=== PATIENT | male | born 1975 | race Caucasian/White ===

== ENCOUNTER 2020-08-04 07:58 | Outpatient (REF) | payer OTHER, SELFPAY | END 2020-08-04 07:59 | disposition home or self-care (01) | LOC: HO.LAB 07:58 | PROVIDERS: Visit Provider Internal Medicine | DX: Z20.828 Contact with and (suspected) exposure to other viral communicable diseases (principal) | CPT/HCPCS: 87635 ==

== ENCOUNTER 2020-09-01 07:55 | Outpatient (REF) | payer OTHER, SELFPAY ==
[2020-09-01 09:16] LABS: MANUAL DIFF FLAG NO
[2020-09-01 09:34] LABS: Basophils Absolute Auto 0.1 X10*3/uL (0.0-0.2); Basophils Percent Auto 0.6 % (0-2); Eosinophils Absolute Auto 0.3 X10*3/uL (0.0-0.4); Eosinophils Percent Auto 3.3 % (0-4); Hematocrit 48.6 % (42-52); Hemoglobin 15.9 g/dl (14.0-18.0); Imm Gran Abs Auto 0.07 X10*3/uL (0.00-0.03); Imm Gran Pct Auto 0.7 % (0.0-0.4); Lymphocytes Absolute Auto 2.4 X10*3/uL (1.2-4.9); Lymphocytes Percent Auto 24.9 % (20-40); Mean Corpuscular HGB Conc 32.7 g/dl (31.0-36.0); Mean Corpuscular Hemoglobin 30.6 pg (27.0-33.0); Mean Corpuscular Volume 93.6 fL (80-98); Mean Platelet Volume 9.2 fL (9.4-12.4); Monocytes Absolute Auto 0.8 X10*3/uL (0.1-1.2); Monocytes Percent Auto 8.1 % (2-11); Neutrophils Absolute Auto 5.9 X10*3/uL (2.0-8.3); Neutrophils Percent Auto 62.4 % (45-73); Platelet Count 245 X10*3/uL (160-400); Red Blood Count 5.19 X10*6/uL (4.60-5.80); Red Cell Distribution Width 12.3 % (11.0-16.0); White Blood Count 9.4 X10*3/uL (4.8-10.8)
[2020-09-01 09:43] LABS: Alanine Aminotransferase 46 U/L (0-40); Albumin Level 4.5 g/dL (3.5-5.0); Alkaline Phosphatase 64 U/L (39-117); Anion Gap 12 (12-20); Aspartate Amino Transferase 26 U/L (5-37); Bilirubin Total 0.4 mg/dL (0.0-1.0); Blood Urea Nitrogen 15 mg/dL (9-16); Calcium 9.1 mg/dL (8.4-10.2); Carbon Dioxide 30 mmol/L (22-29); Chloride 102 mmol/L (96-108); Cholesterol 220 mg/dL; Estimated Glomerular Filt Rate > 60; Glucose Fasting 96 mg/dL (60-99); HDL Cholesterol 33 mg/dL; LDL Cholesterol Calculated 155 mg/dl; Potassium 4.7 mmol/l (3.3-5.1); Sodium 139 mmol/L (135-145); Total Protein 7.1 g/dL (6.5-8.0); Triglycerides 162 mg/dL
[2020-09-01 09:52] LABS: TSH reflex Free T4 0.79 mIU/mL (0.32-4.0)
== END 2020-09-01 07:56 | disposition home or self-care (01) ==
LOC: HO.LAB 07:55
PROVIDERS: PCP Internal Medicine; Visit Provider Physician Assistant
DX: E78.2 Mixed hyperlipidemia (principal)
CPT/HCPCS: 36415; 80053; 80061; 84443; 85025

== ENCOUNTER 2020-09-21 12:18 | Outpatient (REF) | payer OTHER, SELFPAY | END 2020-09-21 12:19 | disposition home or self-care (01) | LOC: HO.LAB 12:18 | PROVIDERS: Visit Provider Internal Medicine | DX: Z20.828 Contact with and (suspected) exposure to other viral communicable diseases (principal) | CPT/HCPCS: C9803; U0003 ==

== ENCOUNTER → 2020-10-26 08:29 | Outpatient (BNVA) | payer OTHER, SELFPAY | PROVIDERS: PCP Internal Medicine; Referring Provider Internal Medicine; Visit Provider Psychiatry & Neurology Neurology ==

== ENCOUNTER → 2020-12-14 08:29 | Outpatient (BNVA) | payer OTHER, SELFPAY | PROVIDERS: PCP Internal Medicine; Visit Provider Psychiatry & Neurology Neurology ==

== ENCOUNTER 2020-12-30 07:44 | Outpatient (REF) | payer OTHER, SELFPAY ==
[2020-12-30 08:41] LABS: Hematocrit 44.2 % (42-52); Mean Corpuscular HGB Conc 33.9 g/dl (31.0-36.0); Mean Corpuscular Volume 91.3 fL (80-98); Mean Platelet Volume 8.6 fL (9.4-12.4); Platelet Count 228 X10*3/uL (160-400); Red Blood Count 4.84 X10*6/uL (4.60-5.80); Red Cell Distribution Width 12.5 % (11.0-16.0); White Blood Count 8.7 X10*3/uL (4.8-10.8)
[2020-12-30 09:20] LABS: Alanine Aminotransferase 44 U/L (0-40); Albumin Level 4.4 g/dL (3.5-5.0); Alkaline Phosphatase 69 U/L (39-117); Anion Gap 15 (12-20); Aspartate Amino Transferase 23 U/L (5-37); Bilirubin Direct 0.2 mg/dL (0.0-0.5); Bilirubin Total 0.4 mg/dL (0.0-1.0); Blood Urea Nitrogen 16 mg/dL (9-16); Calcium 8.9 mg/dL (8.4-10.2); Carbon Dioxide 28 mmol/L (22-29); Chloride 103 mmol/L (96-108); Cholesterol 221 mg/dL; Estimated Glomerular Filt Rate > 60; Glucose Random 108 mg/dL (60-115); HDL Cholesterol 36 mg/dL; LDL Cholesterol Calculated 148 mg/dl; Potassium 4.6 mmol/L (3.3-5.1); Sodium 141 mmol/L (135-145); Total Protein 7.2 g/dL (6.5-8.0); Triglycerides 189 mg/dL
[2020-12-30 09:41] LABS: Thyroid Stimulating Hormone 1.14 uIU/mL (0.32-4.0)
[2020-12-30 10:44] LABS: Folate 14.8 ng/mL (> or = 4.0); Vitamin B12 < 146 pg/mL (200-900)
[2021-01-05 11:32] LABS: Vitamin D 25-OH, D2 <4 ng/mL; Vitamin D 25-OH, D3 15 ng/mL; Vitamin D 25-OH, Total 15 ng/mL (30-100)
== END 2020-12-30 07:45 | disposition home or self-care (01) ==
LOC: HO.LAB 07:44
PROVIDERS: PCP Internal Medicine; Visit Provider Internal Medicine
DX: E78.2 Mixed hyperlipidemia (principal)
CPT/HCPCS: 36415; 80048; 80061; 80076; 82306; 82607; 82746; 84443; 85027

== ENCOUNTER → 2021-02-08 09:13 | Outpatient (BNVA) | payer OTHER, SELFPAY | PROVIDERS: PCP Internal Medicine; Visit Provider Psychiatry & Neurology Neurology ==

== ENCOUNTER → 2021-06-14 15:21 | Outpatient (BNVA) | payer OTHER, SELFPAY | PROVIDERS: Visit Provider Urology ==

== ENCOUNTER → 2021-07-26 09:27 | Outpatient (REF) | payer OTHER, SELFPAY | LOC: HO.SL 09:27 | PROVIDERS: PCP Internal Medicine; Visit Provider Psychiatry & Neurology Neurology | DX: G47.33 Obstructive sleep apnea (adult) (pediatric) (principal) | CPT/HCPCS: 99211 ==

== ENCOUNTER → 2021-09-21 11:29 | Outpatient (BNVA) | payer OTHER, SELFPAY | PROVIDERS: PCP Internal Medicine; Visit Provider Urology | DX: Z30.2 Encounter for sterilization (principal); F41.8 Other specified anxiety disorders | CPT/HCPCS: 55250 ==

== ENCOUNTER 2021-10-11 08:32 | Outpatient (REF) | payer OTHER, SELFPAY ==
[2021-10-11 08:59] LABS: Hematocrit 46.9 % (42.0-52.0); Hemoglobin 15.7 g/dl (14.0-18.0); Mean Corpuscular HGB Conc 33.5 g/dl (31.0-36.0); Mean Corpuscular Hemoglobin 30.7 pg (27.0-33.0); Mean Corpuscular Volume 91.6 fL (80.0-98.0); Mean Platelet Volume 8.6 fL (9.4-12.4); Platelet Count 209 X10*3/uL (160-400); Red Blood Count 5.12 X10*6/uL (4.60-5.80); Red Cell Distribution Width 12.5 % (11.0-16.0); White Blood Count 7.8 X10*3/uL (4.8-10.8)
[2021-10-11 09:34] LABS: Appearance Urine CLEAR; Color Urine YELLOW; Glucose Urine UA NEG (NEG); Leukocyte Esterase Urine NEG (NEG); Nitrite Urine NEG (NEG); Specific Gravity - Urine 1.025 (1.005-1.025); Urine Blood TRACE (NEG); Urine Ketones NEG (NEG); Urine Protein NEG (NEG-TRACE)
[2021-10-11 09:42] LABS: RBC Urine 0-2 /HPF (0); Squamous Epithelial Cell Urine TRACE /LPF; WBC Urine 0 /HPF (0-4)
[2021-10-11 09:45] LABS: Alanine Aminotransferase 105 U/L (0-40); Albumin Level 4.5 g/dL (3.5-5.0); Alkaline Phosphatase 83 U/L (39-117); Anion Gap 10 (12-20); Aspartate Amino Transferase 53 U/L (5-37); Bilirubin Direct 0.2 mg/dL (0.0-0.5); Bilirubin Total 0.5 mg/dL (0.0-1.0); Blood Urea Nitrogen 14 mg/dL (9-16); Calcium 9.7 mg/dL (8.4-10.2); Carbon Dioxide 30 mmol/L (22-29); Chloride 105 mmol/L (96-108); Cholesterol 211 mg/dL; Estimated Glomerular Filt Rate > 60; Glucose Random 113 mg/dL (60-115); HDL Cholesterol 32 mg/dL; LDL Cholesterol Calculated 144 mg/dl; Potassium 4.7 mmol/L (3.3-5.1); Sodium 140 mmol/L (135-145); Total Protein 7.3 g/dL (6.5-8.0); Triglycerides 177 mg/dL
[2021-10-11 09:58] LABS: Thyroid Stimulating Hormone 1.04 uIU/mL (0.32-4.0)
[2021-10-11 10:31] LABS: Folate 19.4 ng/mL (> or = 4.0); Vitamin B12 375 pg/mL (200-900)
[2021-10-15 12:46] LABS: Vitamin D 25-OH, D2 <4 ng/mL; Vitamin D 25-OH, D3 16 ng/mL; Vitamin D 25-OH, Total 16 ng/mL (30-100)
== END 2021-10-11 08:33 | disposition home or self-care (01) ==
LOC: HO.LAB 08:32
PROVIDERS: PCP Internal Medicine; Visit Provider Internal Medicine
DX: D51.8 Other vitamin B12 deficiency anemias (principal); E78.00 Pure hypercholesterolemia, unspecified
CPT/HCPCS: 36415; 80048; 80061; 80076; 81001; 82306; 82607; 82746; 84443; 85027

== ENCOUNTER 2021-11-03 08:55 | Outpatient (REF) | payer OTHER, SELFPAY ==
--- NOTE | ~2021-11-03 | US_ITS ---
EXAMINATION: US ABDOMEN COMPLETE CLINICAL INFORMATION: Elevated liver enzymes. COMPARISON: None TECHNIQUE: Real-time imaging of the abdominal viscera. FINDINGS: PANCREAS: Not well visualized due to bowel gas. ABDOMINAL AORTA: The proximal, mid, and distal segments are normal in caliber. INFERIOR VENA CAVA: Visualized portions are normal. LIVER: The liver is normal in size. The liver contour is normal. Echotexture is increased probably representing fatty infiltration. There is a hypoechoic area adjacent to the gallbladder, a characteristic location of focal fatty sparing. No other focal hepatic lesion. There is no intrahepatic biliary duct dilatation seen. GALLBLADDER: Normal. The gallbladder is physiologically distended without evidence of stones, sludge, polyps, wall thickening or pericholecystic fluid. COMMON BILE DUCT: Normal in caliber measuring 0.5 cm in diameter. RIGHT KIDNEY: Normal. No hydronephrosis. No renal calculi or focal parenchymal lesions. The kidney measures 12.2 cm in maximum dimension. LEFT KIDNEY: Normal. No hydronephrosis. No renal calculi or focal parenchymal lesions. The kidney measures 11.7 cm in maximum dimension. SPLEEN: Normal. The spleen measures 10.0 cm in maximum dimension. FREE FLUID: None. US/US abdomen complete IMPRESSION: Echogenic liver probably representing fatty infiltration. Nonvisualization of the pancreas.
== END 2021-11-03 08:56 | disposition home or self-care (01) ==
LOC: HO.HMGCX 08:55
PROVIDERS: Visit Provider Internal Medicine
DX: R74.8 Abnormal levels of other serum enzymes (principal)
CPT/HCPCS: 76700

== ENCOUNTER 2023-04-26 14:29 | Outpatient (AMB) | payer OTHER, SELFPAY ==
--- NOTE | 2023-04-26 14:34 | MHC.PC.OV ---
Vital Signs 04/26/23 14:36 Height 5 ft 4 in Weight 195 lb 6 oz BMI 33.5 BP 150/90 H Blood Pressure Location Lt brachial Position Sitting Pulse 80 Pulse Source Pulse Oximeter Pulse Oximetry (%) 97 Oxygen Delivery Method Room Air Intake Visit Reasons: Annual exam Intake Note: Patient is here today for a physical. 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 He stopped taking cholesterol medications a year ago. [facility] Medical History (Updated 04/26/23 @ 15:15 by Cecilio Lewis MD) Hypercholesterolemia NOEMÍ (obstructive sleep apnea) Vitamin B12 deficiency (dietary) anemia Surgical History History of vasectomy Family History Father Heart disease Stroke Mother Heart disease Diabetes Social History Housing: House (rented) Alcohol intake: current Alcohol intake frequency: holidays/special occasions only Patient Tobacco Use Status: Former Tobacco user (11/08/20) Quit Date: 11/08/20 Cigarettes Per Day: 8 e-Cigarette/Vaping Use: Never Used Second Hand Smoke Exposure: No service: No Current occupational status: employed and other Cognitive needs: No Hearing needs: No Vision needs: No Questionnaire PHQ-9 Over the last 2 weeks, how often have you been bothered by any of the following problems? 1. Little interest or pleasure in doing things: not at all 2. Feeling down, depressed, or hopeless: not at all 3. Trouble falling or staying asleep, or sleeping too much: not at all 4. Feeling tired or having little energy: not at all 5. Poor appetite or overeating: not at all 6. Feeling bad about yourself - or that you are a failure or have let yourself or your family down: not at all 7. Trouble concentrating on things, such as reading the newspaper or watching television: not at all 8. Moving or speaking so slowly that other people could have noticed. Or the opposite - being so fidgety or restless that you have been moving around a lot more than usual: not at all 9. Thoughts that you would be better off or of hurting yourself in some way: not at all Total score: 0 Depression Screening Interpretation: Negative Source: Developed by Drs. Sincere Leo, Sole Nino, Maury Ravi and colleagues, with an educational mackenzie from [employer]. Thrive Questionnaire Date Thrive assessed: 10/13/21 I am a: Patient What is your living situation today?: I have a steady place to live Within the past 12 months, did the food you bought not last and you didn't have the money to get more?: Never true Within the past 12 months, did you worry whether your food would run out before you got money to buy more?: Never true Do you have trouble paying for medicines?: No Do you have trouble getting transportation to medical appointments?: No Do you have trouble paying your heating and electricity bill?: No Do you have trouble taking care of your child, family member or friend?: No Do you have trouble with day-to-day activities such as bathing, preparing meals, shopping, managing finances, etc.?: No Are you currently unemployed and looking for a job?: No Are you interested in more education?: No Currently or been in a relationship where the following occur: no concerns reported AUDIT C Alcohol Use Questionnaire (AUDIT-C) 1. How often do you have a drink containing alcohol?: Monthly or less 2. How many drinks containing alcohol do you have on a typical day when you are drinking?: 1 or 2 3. How often do you have six or more drinks on one occasion?: Never Total Score: 1 MAY-7 AMB Questionnaire MAY-7 Date MAY - 7 assessed: 04/26/23 Feeling nervous, anxious, or on edge: 0 = Not at all Not being able to stop or control worryin = Not at all Worrying too much about different things: 0 = Not at all Trouble relaxin = Not at all Being so restless that it is hard to sit still: 0 = Not at all Becoming easily annoyed or irritable: 0 = Not at all Feeling afraid as if something awful might happen: 0 = Not at all Total MAY-7 score (0-4 normal; 5-9 mild; 10-14 moderate; 15-21 severe): 0 Source: Developed by Drs. Sincere Leo, Sole Nino, Maury Ravi and colleagues, with an educational mackenzie from [employer]. Physical exam (Primary Care) Vital Signs: Last Vital Signs Pulse 80 04/26/23 14:36 BP 150/90 H 04/26/23 14:36 Pulse Ox 97 04/26/23 14:36 Oxygen Delivery Method Room Air 04/26/23 14:36 Care Plan Goal for BP management: Blood pressure is elevated. Patient is going to check a few more readings. BMI result Body Mass Index 33.5 Tobacco/Smoking Status: Tobacco use Status Tobacco use date assessed 04/26/23 04/26/23 14:44 Patient Tobacco Use Status Former Tobacco user (11/08/20) 04/26/23 14:44 e-Cigarette/Vaping Use Never Used 04/26/23 14:44 PHQ-9: PHQ-9 Score PHQ-9: Total score 0 04/26/23 14:44 Depression Screening Interpretation: Negative Thrive Assessment: Date of Thrive Assessment Date Thrive assessed 10/13/21 04/26/23 14:44 Currently or been in a relationship where the following occur: no concerns reported Const General: cooperative, healthy appearing and comfortable HENMT Head: Yes normal to inspection and Yes atraumatic Eyes General: appearance normal, both eyes and all related structures Neck Neck: Yes normal visual inspection and Yes full ROM Chest Chest palpation & inspection: normal inspection of the chest Resp Effort & Inspection: normal respiratory effort Auscultation: clear to auscultation bilaterally Cardio Jugular venous distension: no JVD Palpation: normal PMI Rate: regular rate Heart sounds: S1 normal heart sound present and S2 normal heart sound present GI Palpation (GI): Soft to palpation and No hepatosplenomegaly present Extrem General: Yes normal to inspection and Yes full ROM Assessment and Plan Assessment & Plan (1) NOEMÍ (obstructive sleep apnea): Code(s): G47.33 - Obstructive sleep apnea (adult) (pediatric) Plan: Continue the CPAP. (2) Annual physical exam: Code(s): Z00.00 - Encounter for general adult medical examination without abnormal findings Plan: Screening colonoscopy and blood work ordered. Medications: Refilled cyanocobalamin (vitamin B-12) 1,000 mcg IM Q4W 3 mL 1RF D51.8 - Other vitamin B12 deficiency anemias Coding Level of Care Code Est Pt Prev Care 40-64y(36921) Diagnoses NOEMÍ (obstructive sleep apnea) G47.33 Annual physical exam Z00.00
[2023-04-26 14:36] VITALS: BP 150/90; PULSE 80; O2SAT 97; BMI 33.5
== END 2023-04-26 15:02 | disposition home or self-care (01) ==
PROVIDERS: PCP Internal Medicine; Visit Provider Internal Medicine
DX: G47.33 Obstructive sleep apnea (adult) (pediatric) (principal); Z00.00 Encounter for general adult medical examination without abnormal findings
CPT/HCPCS: 99396

== ENCOUNTER 2023-05-10 10:51 | Outpatient (AMB) | payer OTHER, SELFPAY ==
[2023-05-10 11:00] VITALS: BP 141/77; PULSE 80; BMI 34.1
--- NOTE | 2023-05-10 11:00 | MHC.OFFVIS ---
Intake Vital Signs 05/10/23 11:00 Height 5 ft 4 in Weight 198 lb 13.711 oz BMI 34.1 BP 141/77 H Blood Pressure Location Rt brachial Position Sitting Pulse 80 Intake Visit Reasons: Colonoscopy screening Intake Note: Patient presents to in office visit today as a new patient for colonoscopy screening. CC: Patient reports GERD and heartburn. Denies other GI symptoms today. 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 He is referred by Cecilio Lewis of [facility] primary care. PMX NOEMÍ Smoker - quit 1 year ago Obesity High cholesterol Abnormal liver function tests Vitamin B12 deficiency Anxiety * SURGICAL HISTORY Vasectomy * ALLERGIES Atorvastatin * [employer] LABS: none since 2021 TODAY'S VISIT This is his first colonoscopy. HE has occasional GERD that he treats with TUMS and no bowel problems. 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 He has obstructive sleep apnea and denies any cardiac problems. NO ID problems No known FHX of crc or polyps. [facility] Medical History Hypercholesterolemia NOEMÍ (obstructive sleep apnea) Vitamin B12 deficiency (dietary) anemia Surgical History History of vasectomy Family History Father Heart disease Stroke Mother Heart disease Diabetes Social History Housing: House (rented) Alcohol intake: current Alcohol intake frequency: holidays/special occasions only Patient Tobacco Use Status: Former Tobacco user (11/08/20) Quit Date: 11/08/20 Cigarettes Per Day: 8 e-Cigarette/Vaping Use: Never Used Second Hand Smoke Exposure: No service: No Current occupational status: employed and other Cognitive needs: No Hearing needs: No Vision needs: No Review of Systems Const Denies fatigue, Denies fever(s), Denies night sweats, Denies poor appetite and Denies weight loss ENT Reports Normal hearing present, Denies dental pain, Denies dysphagia, Denies hearing loss, Denies mouth pain, Denies odynophagia, Denies throat swelling, Denies tongue swelling and Reports other (Dentition adequate) Card Reports no additional complaints Resp Reports no additional complaints GI Denies abdominal pain, Denies melena, Denies bloating, Denies hematochezia, Denies constipation, Denies GI cramping, Denies dysphagia, Denies excessive flatus, Denies early satiety, Denies heartburn, Denies diarrhea, Denies nausea, Denies odynophagia, Denies vomiting and Denies hematemesis Skin/Breast Denies pruritus, Denies lesions, Denies rash and Denies jaundice Neuro Reports Normal hearing present and Denies Abnormal speech present Endo Denies fatigue Aller/Immun Denies throat swelling and Denies tongue swelling Physical Exam Vital Signs: Last Vital Signs Pulse 80 05/10/23 11:00 BP 141/77 H 05/10/23 11:00 BMI result Body Mass Index 34.1 Const General: cooperative, no acute distress, well developed and well groomed Nutritional Appearance: well nourished and obese centrally obese Orientation/consciousness: oriented to person, oriented to place and oriented to time Limitations: No language barrier HEENT Head: Yes normocephalic and Yes atraumatic Eyes General: appearance normal, both eyes and all related structures Pupils: Equal, round and reactive pupils present Neck Neck: Yes normal visual inspection and Yes no lymphadenopathy Thyroid: Thyroid normal Resp Effort & Inspection: normal respiratory effort and able to speak in complete sentences Auscultation: clear to auscultation bilaterally Cardio Rate: regular rate Rhythm: regular rhythm Heart sounds: Normal, physiologic split S2 sound present Peripheral pulses: radial pulses present and posterior tibial pulses present GI Inspection: No distended, No Abdominal panniculus present and Yes obesity Palpation (GI): Soft to palpation, nontender, no guarding, not rigid and No hepatosplenomegaly present Percussion: Yes normal to percussion Auscultation: normal bowel sounds Rectal Exam - Male: Yes deferred Skin General skin exam: no rashes or lesions noted, turgor normal, skin not dry, no jaundice, No spider nevi and no striae Rashes: no rashes Nails: normal Neuro General: oriented to person, oriented to place and oriented to time Cranial nerves: Yes Equal, round and reactive pupils present and Yes Normal hearing present Speech: No Abnormal speech present Extrem General: Yes normal to inspection, No clubbing, No cyanosis and No edema Psych Appearance: grossly normal and well kempt Mental Status: mental status grossly normal Speech and movement: Normal speech and movement present Affect: normal affect Attitude: cooperative Thought process: Normal thought process present and not confabulating Thought content: Normal thought content present Insight: Fair insight present (Psych) Judgement: Fair judgement present (Psych) Assessment & Plan Assessment & Plan (1) Pre-op examination: Code(s): Z01.818 - Encounter for other preprocedural examination Plan: This is his first colonoscopy. HE has occasional GERD that he treats with TUMS and no bowel problems. 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 He has obstructive sleep apnea and denies any cardiac problems. NO ID problems No known FHX of crc or polyps. (2) NOEMÍ (obstructive sleep apnea): Code(s): G47.33 - Obstructive sleep apnea (adult) (pediatric) Orders: Orders Comprehensive Met. Panel Today Z01.818 - Encounter for other preprocedural examination Complete Blood Count Auto Diff Today Z01.818 - Encounter for other preprocedural examination Colonoscopy - GI Use Only Today Z01.818 - Encounter for other preprocedural examination Medications: New peg 3350-electrolytes 236-22.74-6.74 -5.86 gram (Golytely) until fecal effluent is clear; do not exceed a total volume of 2,000 mL 240 mL PO Q10M 1 day 4,000 mL 0RF Z12.11 - Encounter for screening for malignant neoplasm of colon Coding Level of Care Code New Pt Level 3 (68889) Diagnoses Pre-op examination Z01.81 NOEMÍ (obstructive sleep apnea) G47.33
== END 2023-05-10 12:11 | disposition home or self-care (01) ==
PROVIDERS: PCP Internal Medicine; Visit Provider Nurse Practitioner
DX: Z01.818 Encounter for other preprocedural examination (principal); Z12.11 Encounter for screening for malignant neoplasm of colon; G47.33 Obstructive sleep apnea (adult) (pediatric)
CPT/HCPCS: 99203

== ENCOUNTER → 2023-05-10 10:51 | Outpatient (BNVA) | payer OTHER, SELFPAY | PROVIDERS: PCP Internal Medicine; Visit Provider Nurse Practitioner ==

== ENCOUNTER 2023-05-25 10:28 | Outpatient (REF) | payer OTHER, SELFPAY ==
[2023-05-25 10:53] LABS: Hematocrit 47.2 % (42.0-52.0); Hemoglobin 15.9 g/dl (14.0-18.0); Mean Corpuscular HGB Conc 33.7 g/dl (31.0-36.0); Mean Corpuscular Hemoglobin 31.5 pg (27.0-33.0); Mean Corpuscular Volume 93.5 fL (80.0-98.0); Mean Platelet Volume 8.8 fL (9.4-12.4); Platelet Count 199 X10*3/uL (160-400); Red Blood Count 5.05 X10*6/uL (4.60-5.80); Red Cell Distribution Width 12.3 % (11.0-16.0); White Blood Count 7.9 X10*3/uL (4.8-10.8)
[2023-05-25 10:54] LABS: Appearance Urine Clear; Color Urine Yellow; Glucose Urine UA Negative (Negative); Leukocyte Esterase Urine Negative (Negative); Nitrite Urine Negative (Negative); PH 5.5 (5.0-9.0); Urine Blood Negative (Negative); Urine Ketones Negative (Negative); Urine Protein Negative (Neg-Trace)
[2023-05-25 12:22] LABS: Alanine Aminotransferase 151 U/L (0-40); Albumin Level 4.6 g/dL (3.5-5.0); Alkaline Phosphatase 68 U/L (39-117); Anion Gap 14 (12-20); Aspartate Amino Transferase 69 U/L (5-37); Bilirubin Direct 0.2 mg/dL (0.0-0.5); Bilirubin Total 0.5 mg/dL (0.0-1.0); Blood Urea Nitrogen 14 mg/dL (9-16); Calcium 10.1 mg/dL (8.4-10.2); Carbon Dioxide 29 mmol/L (22-29); Chloride 101 mmol/L (96-108); Cholesterol 265 mg/dL; Estimated Glomerular Filt Rate > 60; Glucose Random 100 mg/dL (60-115); HDL Cholesterol 40 mg/dL; LDL Cholesterol Calculated 182 mg/dl; Potassium 4.4 mmol/L (3.3-5.1); Sodium 140 mmol/L (135-145); Total Protein 7.8 g/dL (6.5-8.0); Triglycerides 218 mg/dL
[2023-05-25 12:38] LABS: Thyroid Stimulating Hormone 0.87 uIU/mL (0.32-4.0)
== END 2023-05-25 10:29 | disposition home or self-care (01) ==
LOC: HO.LAB 10:28
PROVIDERS: PCP Internal Medicine; Visit Provider Internal Medicine
DX: E78.00 Pure hypercholesterolemia, unspecified (principal)
CPT/HCPCS: 36415; 80048; 80061; 80076; 81003; 84443; 85027

== ENCOUNTER 2023-05-31 13:43 | Outpatient (AMB) | payer OTHER, SELFPAY ==
--- NOTE | 2023-05-31 13:55 | A.OFFPC_ITS ---
Vital Signs 05/31/23 13:57 Height 5 ft 4 in Weight 201 lb 4 oz BMI 34.5 BP 132/70 Blood Pressure Location Lt brachial Position Sitting Pulse 91 Pulse Source Pulse Oximeter Pulse Oximetry (%) 97 Oxygen Delivery Method Room Air Intake Visit Reasons: 4 week f/u Intake Note: Patient is here to follow up on HLD, NOEMÍ. 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 Patient had recent blood work and would like to discuss it. He has gained 15 lb since last office visit. Patient continues to work and do all activities of daily living. PENDING SALE TO [facility] Medical History Hypercholesterolemia NOEMÍ (obstructive sleep apnea) Vitamin B12 deficiency (dietary) anemia Surgical History History of vasectomy Family History Father Heart disease Stroke Mother Heart disease Diabetes Social History Housing: House (rented) Alcohol intake: current Alcohol intake frequency: holidays/special occasions only Patient Tobacco Use Status: Former Tobacco user (11/08/20) Quit Date: 11/08/20 Cigarettes Per Day: 8 e-Cigarette/Vaping Use: Never Used Second Hand Smoke Exposure: No service: No Current occupational status: employed and other Cognitive needs: No Hearing needs: No Vision needs: No Questionnaire Thrive Questionnaire Date Thrive assessed: 10/13/21 MAY-7 AMB Questionnaire MAY-7 Date MAY - 7 assessed: 04/26/23 Source: Developed by Drs. Sincere Leo, Sole Nino, Maury Ravi and colleagues, with an educational mackenzie from [employer]. Physical exam (Primary Care) Vital Signs: Last Vital Signs Pulse 91 05/31/23 13:57 BP 132/70 05/31/23 13:57 Pulse Ox 97 05/31/23 13:57 Oxygen Delivery Method Room Air 05/31/23 13:57 BMI result Body Mass Index 34.5 Tobacco/Smoking Status: Tobacco use Status Tobacco use date assessed 05/31/23 05/31/23 13:58 Patient Tobacco Use Status Former Tobacco user (11/08/20) 05/31/23 13:56 e-Cigarette/Vaping Use Never Used 05/31/23 13:56 Thrive Assessment: Date of Thrive Assessment Date Thrive assessed 10/13/21 05/31/23 13:56 Const General: cooperative, healthy appearing and comfortable HENMT Head: Yes normal to inspection and Yes atraumatic Eyes General: appearance normal, both eyes and all related structures Neck Neck: Yes normal visual inspection and Yes full ROM Chest Chest palpation & inspection: normal inspection of the chest Resp Effort & Inspection: normal respiratory effort Auscultation: clear to auscultation bilaterally Cardio Jugular venous distension: no JVD Palpation: normal PMI Rate: regular rate Heart sounds: S1 normal heart sound present and S2 normal heart sound present GI Palpation (GI): Soft to palpation and No hepatosplenomegaly present Extrem General: Yes normal to inspection and Yes full ROM Assessment and Plan Assessment & Plan (1) HLD (hyperlipidemia): Code(s): E78.5 - Hyperlipidemia, unspecified Qualifiers: Hyperlipidemia type: mixed hyperlipidemia Qualified Code(s): E78.2 - Mixed hyperlipidemia Plan: I proposed to restart the statins. Patient stated that in the past he had to stop statins because of pain in the legs. Her I encouraged him to tried 1 more time as they are the most effective medications to lower LDL levels. Patient is agreed. (2) Abnormal liver enzymes: Code(s): R74.8 - Abnormal levels of other serum enzymes Plan: Liver enzymes are elevated. Ultrasound done last year of the liver was consistent with fatty liver disease. Patient was encouraged to lose weight. Coding Level of Care Code Est Pt Level 4 (48323) Diagnoses HLD (hyperlipidemia) E78.2 Hyperlipidemia type: mixed hyperlipidemia Abnormal liver enzymes R74.8
[2023-05-31 13:57] VITALS: BP 132/70; PULSE 91; O2SAT 97; BMI 34.5
== END 2023-05-31 14:39 | disposition home or self-care (01) ==
PROVIDERS: PCP Internal Medicine; Visit Provider Internal Medicine
DX: E78.2 Mixed hyperlipidemia (principal); R74.8 Abnormal levels of other serum enzymes
CPT/HCPCS: 99214

== ENCOUNTER 2023-09-06 13:39 | Outpatient (AMB) | payer OTHER, SELFPAY ==
--- NOTE | 2023-09-06 13:51 | A.OFFPC_ITS ---
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 Accompanied by: Self / Same As Patient Allergies atorvastatin Adverse Reaction (Intermediate, Verified 09/06/23 14:20) cramps Medication List - Last Reconciled 09/06/23 by Cecilio Lewis MD albuterol sulfate 90 mcg/actuation 1 puff inhalation DAILY PRN 30 days peg 3350-electrolytes 236-22.74-6.74 -5.86 gram (Golytely) 240 mL PO Q10M 1 day rosuvastatin 10 mg PO DAILY Tobacco use date assessed: 05/31/23 Dental Screening Dental Screen Date: 09/06/23 Did you have a dental visit in the last 12 months?: No Did you have a dental problem in the last 6 months where you did not have access to dental care?: No Was dental information given to patient?: Patient has dentist HPI 3mth f/u HPI Details 48-year-old male presents to the office to discuss his chronic medical conditions. Patient is compliant with medications and is requesting a refill on Prilosec. He is awaiting a colonoscopy there has been scheduled in the week of November. Able to function and do activities of daily living. Patient is reporting that he is become increasingly irritable. He used to be on anxiety medications 15 years ago. He feels so symptoms are returning. Sleeping well at night. Good interpersonal relationship. Appetite is normal. [facility] Medical History Hypercholesterolemia NOEMÍ (obstructive sleep apnea) Vitamin B12 deficiency (dietary) anemia Surgical History History of vasectomy Family History Father Heart disease Stroke Mother Heart disease Diabetes Social History Housing: House (rented) Alcohol intake: current Alcohol intake frequency: holidays/special occasions only Patient Tobacco Use Status: Former Tobacco user (11/08/20) Quit Date: 11/08/20 Cigarettes Per Day: 8 e-Cigarette/Vaping Use: Never Used Second Hand Smoke Exposure: No service: No Current occupational status: employed and other Cognitive needs: No Hearing needs: No Vision needs: No Questionnaire Thrive Questionnaire Date Thrive assessed: 10/13/21 Currently or been in a relationship where the following occur: no concerns reported MAY-7 AMB Questionnaire MAY-7 Date MAY - 7 assessed: 04/26/23 Source: Developed by Drs. Sincere Leo, Sole Nino, Maury Ravi and colleagues, with an educational mackenzie from [employer]. Physical exam (Primary Care) Vital Signs: Last Vital Signs Pulse 95 09/06/23 13:52 BP 146/82 H 09/06/23 13:52 Pulse Ox 98 09/06/23 13:52 Oxygen Delivery Method Room Air 09/06/23 13:52 Care Plan Goal for BP management: Blood pressure is in range. Continue current medications BMI result Body Mass Index 34.7 BMI Assessment/Plan discussion: High (1 lb per week weight loss suggested.) BMI High, discussed plan: lifestyle, weight reduction and dietary Tobacco/Smoking Status: Tobacco use Status Tobacco use date assessed 05/31/23 09/06/23 13:52 Patient Tobacco Use Status Former Tobacco user (11/08/20) 09/06/23 13:52 e-Cigarette/Vaping Use Never Used 09/06/23 13:52 Thrive Assessment: Date of Thrive Assessment Date Thrive assessed 10/13/21 09/06/23 13:52 Currently or been in a relationship where the following occur: no concerns reported Const General: cooperative and healthy appearing Nutritional Appearance: well nourished Orientation/consciousness: patient oriented x3 Limitations: no limitations HENMT Head: Yes normal to inspection Eyes General: appearance normal, both eyes and all related structures Neck Neck: Yes normal visual inspection Chest Chest palpation & inspection: normal palpation of entire chest wall Resp Effort & Inspection: normal respiratory effort Neuro General: patient oriented x3 Office Procedures Flu Questionnaire Does the patient have a severe egg allergy?: No Immunizations flu vacc [id number] 6mos up(PF) 60 mcg(15 mcgx4)/0.5 mL IM syringe Performing Provider: Cecilio Lewis MD [facility] Documented (not given) by: MATT Walker on 09/06/23 13:57 Reason Not Given: Patient Refused Assessment and Plan Assessment & Plan (1) Abnormal liver enzymes: Code(s): R74.8 - Abnormal levels of other serum enzymes Plan: Repeat blood work to be done in the middle of September. Will call with the results. (2) Hypercholesterolemia: Code(s): E78.00 - Pure hypercholesterolemia, unspecified Plan: Continue current medications. (3) NOEMÍ (obstructive sleep apnea): Code(s): G47.33 - Obstructive sleep apnea (adult) (pediatric) Plan: Continues the use of CPAP. (4) Generalized anxiety disorder: Code(s): F41.1 - Generalized anxiety disorder Plan: Patient would like counseling before he takes any medications. A request has been made. Orders: Orders Influenza [id number] Immunization Today Z23 - Encounter for immunization Basic Metabolic Panel Today E78.00 - Pure hypercholesterolemia, unspecified, F41.1 - Generalized anxiety disorder, G47.33 - Obstructive sleep apnea (adult) (pediatric), R74.8 - Abnormal levels of other serum enzymes Lipid Panel Today E78.00 - Pure hypercholesterolemia, unspecified, F41.1 - Generalized anxiety disorder, G47.33 - Obstructive sleep apnea (adult) (pediatric), R74.8 - Abnormal levels of other serum enzymes UA and rflx microscopic Today E78.00 - Pure hypercholesterolemia, unspecified, F41.1 - Generalized anxiety disorder, G47.33 - Obstructive sleep apnea (adult) (pediatric), R74.8 - Abnormal levels of other serum enzymes Complete Blood Count no Diff Today E78.00 - Pure hypercholesterolemia, unspecified, F41.1 - Generalized anxiety disorder, G47.33 - Obstructive sleep apnea (adult) (pediatric), R74.8 - Abnormal levels of other serum enzymes Liver Panel Today E78.00 - Pure hypercholesterolemia, unspecified, F41.1 - Generalized anxiety disorder, G47.33 - Obstructive sleep apnea (adult) (pediatric), R74.8 - Abnormal levels of other serum enzymes Thyroid Stimulating Hormone Today E78.00 - Pure hypercholesterolemia, unspecified, F41.1 - Generalized anxiety disorder, G47.33 - Obstructive sleep apnea (adult) (pediatric), R74.8 - Abnormal levels of other serum enzymes Coding Level of Care Code Est Pt Level 4 (51743) Diagnoses Abnormal liver enzymes R74.8 Hypercholesterolemia E78.00 NOEMÍ (obstructive sleep apnea) G47.33 Generalized anxiety disorder F41.1
[2023-09-06 13:52] VITALS: BP 146/82; PULSE 95; O2SAT 98; BMI 34.7
== END 2023-09-06 14:17 | disposition home or self-care (01) ==
PROVIDERS: PCP Internal Medicine; Visit Provider Internal Medicine
DX: R74.8 Abnormal levels of other serum enzymes (principal); E78.00 Pure hypercholesterolemia, unspecified; G47.33 Obstructive sleep apnea (adult) (pediatric); F41.1 Generalized anxiety disorder
CPT/HCPCS: 99214

== ENCOUNTER 2023-11-07 10:48 | Outpatient (REF) | payer OTHER, SELFPAY ==
[2023-11-07 12:00] LABS: Hematocrit 46.5 % (42.0-52.0); Hemoglobin 15.9 g/dl (14.0-18.0); Mean Corpuscular HGB Conc 34.2 g/dl (31.0-36.0); Mean Corpuscular Hemoglobin 30.6 pg (27.0-33.0); Mean Corpuscular Volume 89.6 fL (80.0-98.0); Mean Platelet Volume 8.7 fL (9.4-12.4); Platelet Count 236 X10*3/uL (160-400); Red Blood Count 5.19 X10*6/uL (4.60-5.80); Red Cell Distribution Width 11.9 % (11.0-16.0); White Blood Count 7.9 X10*3/uL (4.8-10.8)
[2023-11-07 12:21] LABS: Alanine Aminotransferase 92 U/L (0-40); Albumin Level 4.6 g/dL (3.5-5.0); Alkaline Phosphatase 61 U/L (39-117); Anion Gap 13 (12-20); Aspartate Amino Transferase 45 U/L (5-37); Bilirubin Direct 0.2 mg/dL (0.0-0.5); Bilirubin Total 0.5 mg/dL (0.0-1.0); Blood Urea Nitrogen 13 mg/dL (9-16); Calcium 9.6 mg/dL (8.4-10.2); Carbon Dioxide 29 mmol/L (22-29); Chloride 102 mmol/L (96-108); Cholesterol 174 mg/dL (<200); Estimated Glomerular Filt Rate > 60; Glucose Random 107 mg/dL (60-115); HDL Cholesterol 39 mg/dL (>40); LDL Cholesterol Calculated 101 mg/dL (<100); Potassium 4.2 mmol/L (3.3-5.1); Sodium 140 mmol/L (135-145); Total Protein 7.6 g/dL (6.5-8.0); Triglycerides 171 mg/dL (<150)
[2023-11-07 12:44] LABS: Thyroid Stimulating Hormone 1.04 uIU/mL (0.32-4.0)
[2023-11-07 13:19] LABS: Appearance Urine Clear; Color Urine Yellow; Glucose Urine UA Negative (Negative); Leukocyte Esterase Urine Negative (Negative); Nitrite Urine Negative (Negative); PH 6.5 (5.0-9.0); Urine Blood Negative (Negative); Urine Ketones Negative (Negative); Urine Protein Negative (Neg-Trace)
== END 2023-11-07 10:49 | disposition home or self-care (01) ==
LOC: HO.LAB 10:48
PROVIDERS: Absent Provider Nurse Practitioner; PCP Internal Medicine; Visit Provider Internal Medicine
DX: Z01.818 Encounter for other preprocedural examination (principal); R74.8 Abnormal levels of other serum enzymes; G47.33 Obstructive sleep apnea (adult) (pediatric); F41.1 Generalized anxiety disorder; E78.00 Pure hypercholesterolemia, unspecified
CPT/HCPCS: 36415; 80053; 80061; 80076; 81003; 82248; 84443; 85027

== ENCOUNTER → 2023-11-16 10:43 | Day surgery (SDC) | payer OTHER, SELFPAY ==
[2023-11-14 14:26] VITALS: BMI 34.7
--- NOTE | 2023-11-15 12:01 | HO.ANESPROP2 ---
HPI - Anesthesia Eval Consult details Narrative: 48yo M for Colonoscopy PMF Active Problems Active Problems: All Active Problems (Updated 09/06/23 @ 14:19 by Cecilio Lewis MD) Generalized anxiety disorder (Acute) Pre-op examination (Acute) NOEMÍ (obstructive sleep apnea) (Acute) Abnormal liver enzymes (Acute) Vasectomy evaluation (Acute) Anxiety about health (Acute) Sebaceous cyst (Acute) Screening and evaluation for vasectomy (Acute) Hypercholesterolemia (Acute) Vitamin B12 deficiency (dietary) anemia (Acute) Witnessed apneic spells (Acute) Loud snoring (Acute) Obese (Acute) HLD (hyperlipidemia) (Acute) Smoker (Acute) Annual physical exam (Acute) Past Medical History Medical History (Updated 11/27/23 @ 00:01 by Devyn Ellington) HLD (hyperlipidemia) Asthma Hypercholesterolemia Vitamin B12 deficiency (dietary) anemia NOEMÍ (obstructive sleep apnea) Family History Family History Father Heart disease Stroke Mother Heart disease Diabetes Surgical History Surgical History History of vasectomy Social History Social History Household Members: Significant Other and Children Housing: House Do you presently have visiting nurse or other home services: No Unable to assess alcohol history related to: Unable to respond Alcohol intake: current Alcohol intake frequency: a few times a week Patient Tobacco Use Status: Former Tobacco user Quit Date: 11/08/20 Cigarettes Per Day: 8 e-Cigarette/Vaping Use: Never Used Second Hand Smoke Exposure: No service: No Current occupational status: employed and other Cognitive needs: No Hearing needs: No Vision needs: No Meds Allergies Allergy/AdvReac Type Severity Reaction Status Date / Time atorvastatin AdvReac Intermediate cramps Verified 09/06/23 14:20 Home Medications Medication Instructions Recorded Confirmed Last Taken Type pantoprazole 40 mg tablet,delayed 40 mg PO DAILY PRN Acid Reflux 11/16/23 11/20/23 Unknown History release rosuvastatin 10 mg tablet 10 mg PO BEDTIME 11/16/23 11/20/23 11/14/23 History Exam Height,Weight and Vital Signs: Height 5 ft 4 in Weight 91.626 kg Assessment and Plan Assessment Anesthesia Assessment: Chart Reviewed
[2023-11-16] VITALS (11 sets, daily range): BP systolic 101–177; BP diastolic 59–97; PULSE 82–114; RESP 16–20; TEMP 36.3–38.1; O2SAT 92–100; BMI 34.5
--- NOTE | ~2023-11-16 | XR_ITS ---
EXAMINATION: XR CHEST CLINICAL INFORMATION: Difficulty breathing, low O2. COMPARISON: None available. TECHNIQUE: Frontal view of the chest was obtained. FINDINGS: The lungs are well-expanded with patchy opacity seen in the lingula and left lower lobe consistent with infiltrates. There is some patchy infiltrate in the left upper lobe parahilar region as well. The right lung is clear. The heart size and pulmonary vascularity is normal. No gross bony abnormality seen. XR/XR chest 1V IMPRESSION: Patchy infiltrates in the lingula and left lower lobe and left upper lobe parahilar region.
[2023-11-16] MEDS: Lactated Ringers 1,000 ML 100 ML IVCONT (12:29)
--- NOTE | 2023-11-16 12:31 | P.OP_ITS ---
Operative Note Operative Note Date of Service: 11/16/23 Narrative: COLONOSCOPY TILL CECUM WITH BIOPSIES AND SNARE POLYPECTOMY Pre-op diagnosis: Colon cancer screening (1st colonoscopy) Post-op diagnosis:? Colon polyp, diverticulosis, hemorrhoids Endoscopist:? Braxton Diaz MD Anesthesia:?MAC Consent: Indications for the procedure and potential complications of bleeding, perforation, reaction to medications and missed diagnosis were discussed with the patient and informed consent was obtained. Instrument: Olympus PCF H 190 L variable stiffness pediatric colonoscope Monitoring: Vital signs and clinical assessment, intermittent blood pressure monitoring, continuous EKG monitoring, Pulse oximetry and Carbon Dioxide monitoring were done throughout the procedure. Pt de-saturated during the procedure (Likely due to laryngospasm) and an LMA was inserted. Please see anesthesia flow-sheet. Colon withdrawl time was 26 minutes. Procedure: The patient was placed in the left lateral decubitis position and pre-procedure medications were administered. After a digital rectal examination of the ano-rectum, the video colonoscope was inserted into the rectum and advanced through the colon to the cecum. The colonoscope was slowly withdrawn in a retrograde panoramic fashion and the colon mucosa was carefully examined including a retroflexed view of the rectum. Findings and interventions are described below. Procedure Difficulty: Without difficulty. There was excessive spasm in the left colon Findings: Terminal Ileum: Not evaluated Cecum: A 4-5 mm diminutive appearing polyp - removed with a cold biopsy Ascending Colon: Normal Transverse Colon: Normal Descending Colon: Normal Sigmoid Colon: A 10-12 mm sessile polyp - removed with a hot snare. Moderate diverticulosis Rectum: Normal Ano-rectum: Moderate internal hemorrhoids Colon preparation: Good after some irrigation [place] Bowel Preparation Scale Right colon; 3 Transverse colon: 3 Left colon; 3 (0 = Unprepared colon segment with mucosa not seen due to solid stool that cannot be cleared. 1 = Portion of mucosa of the colon segment seen, but other areas of the colon segment not well seen due to staining, residual stool and/or opaque liquid. 2 = Minor amount of residual staining, small fragments of stool and/or opaque liquid, but mucosa of colon segment seen well. 3 = Entire mucosa of colon segment seen well with no residual staining, small fragments of stool or opaque liquid) Impression and Post Procedure Diagnosis: Colonoscopy Findings: One small and one medium sized polyps removed Moderate diverticulosis seen in the sigmoid colon Moderate hemorrhoids on retroflexed exam. Plan: Await pathology results Patient has an appointment on 12/07/23 in the GI Clinic with Kajal Robert NP . Repeat Colonoscopy interval based on path results - in 3 years if polyp is adenomatous and 10 years if polyps are hyperplastic. Above findings were reviewed with the patient and colon polyps and diverticulosis handouts were given in the discharge area Pt de-saturated during the procedure (likely due to laryngospasm versus aspiration) and an LMA was inserted BIOPSIES SHOWED: A. Colon, cecal polyp: Colonic mucosa with no specific change; no adenomatous dysplasia seen. B. Colon, sigmoid, polyp: Tubular adenoma; negative for high-grade dysplasia and carcinoma CXR post procedure showed: The lungs are well-expanded with patchy opacity seen in the lingula and left lower lobe consistent with infiltrates. There is some patchy infiltrate in the left upper lobe parahilar region as well. The right lung is clear. The heart size and pulmonary vascularity is normal. No gross bony abnormality seen. Transfer to [facility] ED was arranged by anesthesia for further management. Hospital Course: Pt was sent to the emergency department for evaluation after he aspirated during colonoscopy today. He is currently complain of some shortness of breath and cough. He denied chest or abdominal pain, nausea, vomiting or diarrhea. He is a former smoker. No alcohol abuse or illicit drug use reported. In the ED, he was found to have oxygen saturation 89% and currently requiring 2 liters/minute supplemental oxygen. He is also tachycardic and tachypneic. Blood pressure is normal. Blood workup is remarkable for leukocytosis, 14.3. CMP is remarkable for elevated liver enzymes (on Nov 07 elevated transaminases). Bilirubin and alk-phos are normal. C hest abdominal pelvis CT scan results were pending at the time of this evaluation. ED tx: Zosyn 3.375 g IV, vancomycin 2 g IV, NS 1 L bolus. 48-year-old man treated for acute aspiration pneumonia and acute hypoxic respiratory failure. Treated with IV Zosyn, vancomycin, supplemental oxygen, IV Solu-Medrol, bronchodilator therapy. Respiratory failure soon resolved. Patient is not requiring oxygen at this time. Plan is to discharge home with 2 more days of antibiotics to complete 5 days total.
--- NOTE | 2023-11-16 12:31 | MHC.SHP ---
Pre-Procedural Eval Section A - 24 Hr Update-Section A only Date of Service: 11/16/23 The patient is an INPATIENT: No The patient has been examined within 24 hours of the surgical procedure. The History & Physical has been completed within 30 days and I have reviewed it.: No Section B - Complete if H&P > 30 days Chief Complaint: Colon cancer screening Relevant Family History (Specify if Yes): No Relevant Social History: Tobacco Use (Former smoker) Present Medications: see Short Stay Collaborative assessment Medical History: Significant History (Hypercholesterolemia NOEMÍ (obstructive sleep apnea) Vitamin B12 deficiency (dietary) anemia) History of Previous Operations: Relevant previous surgery/procedure and date(s) (History of vasectomy) Allergies: Allergies Allergy/AdvReac Type Severity Reaction Status Date / Time atorvastatin AdvReac Intermediate cramps Verified 09/06/23 14:20 Review of Systems Sugical H&P ROS: Negative: Constitution, Cardiovascular, Respiratory and Gastrointestinal Exam Surgical H&P Exam: Normal: Heart, Normal: Lungs, Normal: Extremities and Normal: Abdomen Plan Diagnosis/Plan: Unchanged I have reviewed the history and physical and performed a pertinent physical examination on my patient. No changes have occurred unless specified. Time Spent With Patient Time: Total time managing care of this patient today ____ minutes.
--- NOTE | 2023-11-16 14:08 | P.CONAN_ITS ---
[facility] Active Problems Active Problems: All Active Problems (Updated 09/06/23 @ 14:19 by Cecilio Lewis MD) Generalized anxiety disorder (Acute) Pre-op examination (Acute) NOEMÍ (obstructive sleep apnea) (Acute) Abnormal liver enzymes (Acute) Vasectomy evaluation (Acute) Anxiety about health (Acute) Sebaceous cyst (Acute) Screening and evaluation for vasectomy (Acute) Hypercholesterolemia (Acute) Vitamin B12 deficiency (dietary) anemia (Acute) Witnessed apneic spells (Acute) Loud snoring (Acute) Obese (Acute) HLD (hyperlipidemia) (Acute) Smoker (Acute) Annual physical exam (Acute) Past Medical History Medical History Hypercholesterolemia Vitamin B12 deficiency (dietary) anemia NOEMÍ (obstructive sleep apnea) Family History Family History Father Heart disease Stroke Mother Heart disease Diabetes Family history of problems with anesthesia: No Surgical History Surgical History History of vasectomy Social History Social History Housing: House (rented) Alcohol intake: current Alcohol intake frequency: holidays/special occasions only Patient Tobacco Use Status: Former Tobacco user Quit Date: 11/08/20 Cigarettes Per Day: 8 e-Cigarette/Vaping Use: Never Used Second Hand Smoke Exposure: No Use of substances other than those prescribed or required for medical reasons: No Are you DNR?: No Advance Directives: No Advance Directives Information Provided: Yes service: No Current occupational status: employed and other Cognitive needs: No Hearing needs: No Vision needs: No Meds Allergies Allergy/AdvReac Type Severity Reaction Status Date / Time atorvastatin AdvReac Intermediate cramps Verified 09/06/23 14:20 Active Medications: Current Medications Lactated Ringer's (Lr) 1,000 mls @ 100 mls/hr IVCONT .Q10H FORD Last Admin: 11/16/23 12:29 Dose: 100 mls/hr Exam Height,Weight and Vital Signs: Height 5 ft 4 in Weight 91.172 kg Last Vital Signs Temp 98.6 F 11/16/23 12:17 Pulse 83 11/16/23 12:17 Resp 16 11/16/23 12:17 BP 177/97 H 11/16/23 12:17 Pulse Ox 97 11/16/23 12:17 O2 Del Method Room Air 11/16/23 12:17 Airway Mallampati Class: II TM Dist: >3cm Neck ROM: Full Heart: RRR Lungs: CTA Assessment and Plan Assessment Anesthesia Assessment: Anesthesia Plan Discussed Final Anesthetic Review Family History of Problems with Anesthesia: No Final Preanesthetic Review: Meds/Allgs Chart Reviewed, Consent Obtained/Reviewed and Anes Risks/Benef Reviewed Patient Risk: Low Procedure Risk: Low Anesthetic Plan Anesthetic Plan: MAC: Disposition: Standard PACU
--- NOTE | 2023-11-16 15:16 | HO.POSTANES ---
Post Anesthesia Evaluation Post Anesthesia Evaluation Date of Service: 11/16/23 Vital Signs: Vital Signs Temp Pulse Resp BP Pulse Ox O2 Del Method O2 Flow Rate 11/16/23 15:11 92 20 155/86 H 97 Nasal Cannula 6 11/16/23 14:56 97.4 F 99 16 131/85 95 Simple Mask 6 11/16/23 12:17 98.6 F 83 16 177/97 H 97 Room Air Anesthesia: Monitored Mental Status: Awake Pain Control: Satisfactory Nausea/Vomiting: None Hydration: Adequate Anesthesia-Related Issues: No Anes. Related Issues
[2023-11-16] MEDS: Albuterol Sulfate (0.083%) 2.5 MG/3 ML VIAL.NEB INHALE (15:17)
[2023-11-16] MEDS: Acetaminophen 325 MG TABLET 650 MG PO (15:23)
--- NOTE | 2023-11-16 15:46 | HO.ANESEVENT ---
Anesthesia Event Note Date of Service: 11/16/23 Event Note: During colonoscopy pt.was coughing,had laryngospasm,copious salivation.SaO2 decreasesed to78% ,LMA placed,SaO2 increased to 98%, no further problems, ventilation was adequate. On arrival to PACU, the patient was coughing, breathing easy but Sat was low. 92% on 6L face mask. CXR shows a large LLL infiltrate. The patient will have to be admitted to the hospital. We'll send him to the ED for evaluation. I've discussed what happened with the patient and with Dr. Diaz, and with the ER physician. Time Spent With Patient Time: Total time managing care of this patient today ____ minutes.
[2023-11-16] MEDS: Albuterol/Iprat 2.5/0.5MG 3 ML AMPUL.NEB INHALE (15:58)
--- NOTE | 2023-11-16 16:13 | HO.ANESPROP2 ---
[facility] [place] Active Problems Active Problems: All Active Problems (Updated 09/06/23 @ 14:19 by Cecilio Lewis MD) Generalized anxiety disorder (Acute) Pre-op examination (Acute) NOEMÍ (obstructive sleep apnea) (Acute) Abnormal liver enzymes (Acute) Vasectomy evaluation (Acute) Anxiety about health (Acute) Sebaceous cyst (Acute) Screening and evaluation for vasectomy (Acute) Hypercholesterolemia (Acute) Vitamin B12 deficiency (dietary) anemia (Acute) Witnessed apneic spells (Acute) Loud snoring (Acute) Obese (Acute) HLD (hyperlipidemia) (Acute) Smoker (Acute) Annual physical exam (Acute) asthma Past Medical History Medical History Hypercholesterolemia Vitamin B12 deficiency (dietary) anemia NOEMÍ (obstructive sleep apnea) Family History Family History Father Heart disease Stroke Mother Heart disease Diabetes Family history of problems with anesthesia: No Surgical History Surgical History History of vasectomy Social History Social History Housing: House (rented) Alcohol intake: current Alcohol intake frequency: holidays/special occasions only Patient Tobacco Use Status: Former Tobacco user Quit Date: 11/08/20 Cigarettes Per Day: 8 e-Cigarette/Vaping Use: Never Used Second Hand Smoke Exposure: No Use of substances other than those prescribed or required for medical reasons: No Are you DNR?: No Advance Directives: No Advance Directives Information Provided: Yes service: No Current occupational status: employed and other Cognitive needs: No Hearing needs: No Vision needs: No Meds Allergies Allergy/AdvReac Type Severity Reaction Status Date / Time atorvastatin AdvReac Intermediate cramps Verified 09/06/23 14:20 Active Medications: Current Medications Lactated Ringer's (Lr) 1,000 mls @ 100 mls/hr IVCONT .Q10H FORD Last Admin: 11/16/23 12:29 Dose: 100 mls/hr Exam Height,Weight and Vital Signs: Height 5 ft 4 in Weight 91.172 kg Last Vital Signs Temp 97.4 F 11/16/23 14:56 Pulse 82 11/16/23 15:56 Resp 20 11/16/23 15:56 BP 129/83 11/16/23 15:56 Pulse Ox 92 11/16/23 15:56 O2 Del Method Aerosol Mask 11/16/23 15:56 O2 Flow Rate 4 11/16/23 15:56 Assessment and Plan Final Anesthetic Review Family History of Problems with Anesthesia: No
--- NOTE | 2023-11-16 16:14 | HO.ANESPROP2 ---
[facility] Active Problems Active Problems: All Active Problems Generalized anxiety disorder (Acute) Pre-op examination (Acute) NOEMÍ (obstructive sleep apnea) (Acute) Abnormal liver enzymes (Acute) Vasectomy evaluation (Acute) Anxiety about health (Acute) Sebaceous cyst (Acute) Screening and evaluation for vasectomy (Acute) Hypercholesterolemia (Acute) Vitamin B12 deficiency (dietary) anemia (Acute) Witnessed apneic spells (Acute) Loud snoring (Acute) Obese (Acute) HLD (hyperlipidemia) (Acute) Smoker (Acute) Annual physical exam (Acute) Past Medical History Medical History Hypercholesterolemia Vitamin B12 deficiency (dietary) anemia NOEMÍ (obstructive sleep apnea) Family History Family History Father Heart disease Stroke Mother Heart disease Diabetes Family history of problems with anesthesia: No Surgical History Surgical History History of vasectomy Social History Social History Housing: House (rented) Alcohol intake: current Alcohol intake frequency: holidays/special occasions only Patient Tobacco Use Status: Former Tobacco user Quit Date: 11/08/20 Cigarettes Per Day: 8 e-Cigarette/Vaping Use: Never Used Second Hand Smoke Exposure: No Use of substances other than those prescribed or required for medical reasons: No Are you DNR?: No Advance Directives: No Advance Directives Information Provided: Yes service: No Current occupational status: employed and other Cognitive needs: No Hearing needs: No Vision needs: No Meds Allergies Allergy/AdvReac Type Severity Reaction Status Date / Time atorvastatin AdvReac Intermediate cramps Verified 09/06/23 14:20 Active Medications: Current Medications Lactated Ringer's (Lr) 1,000 mls @ 100 mls/hr IVCONT .Q10H FORD Last Admin: 11/16/23 12:29 Dose: 100 mls/hr Exam Height,Weight and Vital Signs: Height 5 ft 4 in Weight 91.172 kg Last Vital Signs Temp 97.4 F 11/16/23 14:56 Pulse 82 11/16/23 15:56 Resp 20 11/16/23 15:56 BP 129/83 11/16/23 15:56 Pulse Ox 92 11/16/23 15:56 O2 Del Method Aerosol Mask 11/16/23 15:56 O2 Flow Rate 4 11/16/23 15:56 Assessment and Plan Final Anesthetic Review Family History of Problems with Anesthesia: No
--- NOTE | 2023-11-16 16:22 | HO.POSTANES ---
Post Anesthesia Evaluation Post Anesthesia Evaluation Date of Service: 11/16/23 Vital Signs: Vital Signs Temp Pulse Resp BP Pulse Ox O2 Del Method O2 Flow Rate 11/16/23 15:56 82 20 129/83 92 Aerosol Mask 4 11/16/23 15:41 97 20 147/83 H 93 Simple Mask 6 11/16/23 15:26 111 H 20 142/78 H 92 Simple Mask 6 11/16/23 15:11 92 20 155/86 H 97 Nasal Cannula 6 11/16/23 14:56 97.4 F 99 16 131/85 95 Simple Mask 6 11/16/23 12:17 98.6 F 83 16 177/97 H 97 Room Air Anesthesia: Monitored and General LMA Mental Status: Awake Nausea/Vomiting: None Hydration: Adequate Comments: CXR shows left lower lobe opacification/ aspiration/. SaO2 96% on 6 L O2. He got Duo Neb treatment. Pt will be sent to ER for further treatment. I gave report to Dr Guillermo.
== END | disposition home or self-care (01) ==
PROVIDERS: PCP Internal Medicine; Visit Provider Internal Medicine Gastroenterology
PROC: 0DJD8ZZ Inspection of Lower Intestinal Tract, Via Natural or Artificial Opening Endoscopic (ICD-10-PCS; CPT 45378; principal; 2023-11-16 13:10)
DX: Z12.11 Encounter for screening for malignant neoplasm of colon (principal); D12.5 Benign neoplasm of sigmoid colon; K57.30 Diverticulosis of large intestine without perforation or abscess without bleeding; K64.8 Other hemorrhoids; K63.5 Polyp of colon; J38.5 Laryngeal spasm
CPT/HCPCS: 45385; 45380; 71045; 88305; 99499; J0330; J2704

== ENCOUNTER → 2023-11-16 10:43 | Outpatient (BNV) | payer OTHER, SELFPAY | PROVIDERS: PCP Internal Medicine; Visit Provider Internal Medicine Gastroenterology | DX: Z12.11 Encounter for screening for malignant neoplasm of colon (principal); K57.30 Diverticulosis of large intestine without perforation or abscess without bleeding; K64.8 Other hemorrhoids; D12.0 Benign neoplasm of cecum; D12.5 Benign neoplasm of sigmoid colon | CPT/HCPCS: 45380; 45385 ==

== ENCOUNTER 2023-11-16 17:46 | Inpatient (IN) | payer OTHER, SELFPAY ==
[2023-11-16] VITALS (8 sets, daily range): BP systolic 113–132; BP diastolic 60–85; PULSE 95–127; RESP 16–25; TEMP 36.6–37.6; O2SAT 90–95; BMI 33.4
--- NOTE | ~2023-11-16 | CT_ITS ---
EXAMINATION: CT CHEST, ABDOMEN AND PELVIS WITHOUT CONTRAST CLINICAL INFORMATION: Shortness of breath; abdominal distention status-post colonoscopy. COMPARISON: Chest radiograph dated 11/16/2023; abdominal ultrasound dated 11/03/2021. TECHNIQUE: Multidetector volumetric imaging was performed from the thoracic inlet through the pubic symphysis without intravenous contrast. Sagittal and coronal reformatted images were obtained on the technologist workstation. This CT examination was performed using dose optimization techniques as appropriate, variously including the following: *Automated exposure control. *Adjustment of mA and/or kV according to patient size (this includes techniques or standardized protocols for targeted exams where dose is matched to indication/reason for exam, i.e., extremities or head). *Use of iterative reconstruction technique. DLP: 918 mGy-cm. FINDINGS: CHEST: LUNGS: Fine detail is limited by respiratory motion. Corresponding with the accompanying chest radiographic findings, there are moderately severe patchy infiltrates seen within the left upper and lower lobes. There is linear scar/subsegmental atelectasis seen within the lingula and the bilateral lower lobes. No nodule or mass is seen. There is no generalized small airway thickening. The central airways appear patent. MEDIASTINUM: The mediastinum is normal. Central vascular structures are unremarkable. There are no significant coronary artery atherosclerotic calcifications. No hilar or mediastinal lymphadenopathy. PERICARDIUM/PLEURA: There is no significant effusion. No pleural mass or thickening. CHEST WALL/AXILLA: Unremarkable. ABDOMEN/PELVIS: LIVER, GALLBLADDER, BILIARY TREE: The liver is normal in size, shape, and attenuation. No focal hepatic lesion or biliary ductal dilatation is present. The gallbladder is unremarkable with no evidence of radiopaque gallstones, gallbladder wall thickening, or pericholecystic inflammatory changes. PANCREAS: Unremarkable. SPLEEN: Unremarkable. ADRENAL GLANDS: Unremarkable. KIDNEYS AND URETERS: The kidneys are normal in size, shape, and attenuation. No hydronephrosis or hydroureter or calculi seen. No perinephric stranding. BLADDER: Unremarkable. GASTROINTESTINAL TRACT: There is a moderate hiatus hernia. The small and large bowel are unremarkable. The appendix is unremarkable. ABDOMINAL WALL: There are small fat-containing umbilical and moderate fat-containing right inguinal hernia defects. LYMPH NODES: Normal. VASCULAR: Unremarkable. PELVIC VISCERA: The prostate and seminal vesicles are unremarkable. OSSEOUS STRUCTURES: There is multi-level thoracolumbar spondylosis. There are Schmorl's node formation at T8-T9. No acute or aggressive osseous finding is noted. CT/CT abdomen pelvis wo IV con IMPRESSION: 1. There are diffuse alveolar infiltrates seen within the left upper and lower lobes. 2. There are bilateral lower lung field scattered foci of minor scar/subsegmental atelectasis, without associated focal airway obstruction. 3. No thoracic lymphadenopathy or pleural effusion is seen. 4. There is a moderate hiatus hernia. 5. There are umbilical and right inguinal hernia defects, as detailed. 6. There is no bowel obstruction, free intraperitoneal air or abscess. 7. No acute or aggressive osseous finding is noted.
--- NOTE | 2023-11-16 18:12 | ECG_ITS ---
Test Reason : DYSPNIA Blood Pressure : / mmHG Vent. Rate : 111 BPM Atrial Rate : 111 BPM P-R Int : 144 ms QRS Dur : 074 ms QT Int : 330 ms P-R-T Axes : 029 013 019 degrees QTc Int : 448 ms Sinus tachycardia Nonspecific T wave abnormality Abnormal ECG No previous ECGs available Referred By: Qian Smith Electronically Signed By:GIOVANA HYAS
--- NOTE | 2023-11-16 18:14 | ED.SOB ---
HPI - SOB/Dyspnea General Chief Complaint: Dyspnea Stated Complaint: Aspritation? Time Seen by Provider: 11/16/23 17:53 Source: patient Mode of arrival: other History of Present Illness HPI Narrative: 48-year-old male without significant past medical history arrives after having undergone a colonoscopy and then during the recovery. Developed shortness of breath and elevated temperature and there are concerns for possible aspiration. Patient denies any abdominal discomfort. Related Data Home Medications Medication Instructions Recorded Confirmed pantoprazole 40 mg tablet,delayed 40 mg PO DAILY PRN Acid Reflux 11/16/23 11/16/23 release rosuvastatin 10 mg tablet 10 mg PO BEDTIME 11/16/23 11/16/23 Previous Rx's Medication Instructions Recorded albuterol sulfate 90 mcg/actuation 1 puff inhalation DAILY PRN 10/13/21 aerosol inhaler shortness of breath or wheezing 30 days #8.5 grams Allergies Allergy/AdvReac Type Severity Reaction Status Date / Time atorvastatin AdvReac Intermediate cramps Verified 09/06/23 14:20 Review of Systems Review of Systems: Pertinent positives and negatives as stated in HPI PMFSH Past Medical History Source: nursing notes reviewed Medical History Hypercholesterolemia Vitamin B12 deficiency (dietary) anemia NOEMÍ (obstructive sleep apnea) Surgical History History of vasectomy Family History Family History Father Heart disease Stroke Mother Heart disease Diabetes Social History Social History Housing: House (rented) Unable to assess alcohol history related to: Unable to respond Alcohol intake: current Alcohol intake frequency: a few times a week Patient Tobacco Use Status: Former Tobacco user Quit Date: 11/08/20 Cigarettes Per Day: 8 Smoked in Last 30 Days: No e-Cigarette/Vaping Use: Never Used Second Hand Smoke Exposure: No Use of substances other than those prescribed or required for medical reasons: No Advance Directives: No Advance Directives Information Provided: No service: No Current occupational status: employed and other Cognitive needs: No Hearing needs: No Vision needs: No Physical Exam Vital Signs: Vital Signs: Last Vital Signs Temp 99.6 F 11/16/23 19:46 Pulse 106 H 11/16/23 20:06 Resp 25 H 11/16/23 20:06 BP 118/65 11/16/23 19:46 Pulse Ox 95 11/16/23 19:46 O2 Del Method Nasal Cannula 11/16/23 19:46 O2 Flow Rate 2 11/16/23 19:46 Oxygen Flow Rate 3 11/16/23 18:00 BMI result Body Mass Index 33.4 VITAL SIGNS: Reviewed. GENERAL: Well developed, well nourished, in no acute distress. HEAD: Normocephalic/atraumatic EYES: PERRLA, EOMI EARS: Ext canals without abnormality NOSE: Nares patent bilateral OROPHARYNX: no oral lesions noted, posterior pharynx clear NECK: Supple, no adenopathy LUNGS: Normal breath sounds. No adventitious sounds or accessory muscle use. SpO2<94> on 2 L supplemental oxygen via nasal cannula CARDIOVASCULAR: Regular rate and rhythm without noted murmurs ABDOMEN: Soft, non-tender, non-distended with bowel sounds. MUSCULOSKELETAL: No tenderness, deformities, or effusions noted on gross inspection. EXTREMITIES: No cyanosis, clubbing or edema. SKIN: Inspection of the skin reveals no rashes NEUROLOGIC: Alert and oriented x 4. Strength and sensation to light touch were grossly intact x 4. Medications Administered Generic Name Dose Route Start Last Admin Trade Name Freq PRN Reason Stop Dose Admin Vancomycin HCl 2,000 mg in 500 mls @ 250 mls/hr 11/16/23 19:00 11/16/23 20:08 Vancomycin/Ns IV 11/16/23 20:59 250 mls/hr ONCE ONE Administration Discontinued Medications Generic Name Dose Route Start Last Admin Trade Name Freq PRN Reason Stop Dose Admin Albuterol/Ipratropium 3 ml 11/16/23 19:45 11/16/23 20:05 Albuterol/Iprat 2.5/0.5mg 3 Ml Ampul.Neb INHALE 11/16/23 19:46 3 ml ONCE STA Administration Piperacillin Sod/Tazobactam 50 mls @ 100 mls/hr 11/16/23 18:48 11/16/23 19:39 Sod 3.375 gm/ Sodium Chloride IV 11/16/23 19:17 100 mls/hr ONCE ONE Administration Sodium Chloride 1,000 mls @ 999 mls/hr 11/16/23 19:30 11/16/23 19:37 Ns IV 11/16/23 20:30 999 mls/hr .Q1H1M FORD Administration Methylprednisolone Sodium Succinate 125 mg 11/16/23 19:46 11/16/23 20:05 Methylprednisolone Sod Succ 125 Mg/2 Ml Vial IVPUSH 11/16/23 19:47 125 mg ONCE ONE Administration Medical Decision Making Medical Decision Making [facility] Narrative: 48-year-old male with history and clinical presentation of having been brought down from same-day surgery for concern for aspiration during colonoscopy procedure. Patient provided with Zosyn and vancomycin and IV fluids. I reviewed all investigations and hematologic indices demonstrate a leukocytosis with left shift, there is no anemia or thrombocytopenia. Chemistry indices do not demonstrate any CHRISTIAN or electrolyte derangements, patient has chronically elevated transaminases. CT chest demonstrates infiltrates on the left, no acute intra-abdominal pathology noted on CT of abdomen pelvis. 1917: I contacted the inpatient hospitalist and discussed the case, patient was accepted for admission. Differential Diagnosis Differential Diagnoses: The differential diagnosis associated with the presentation includes Please see the discussion above Admission/Observation Consideration of admission/observation: Escalation of care including admission/observation considered Please see the discussion above Consult Healthcare Provider Management of the patient was discussed with: Hospitalist Please see the discussion above Lab Data [facility] Lab Attestation statement: I reviewed the patient's lab results. Please see the discussion above 11/16/23 19:01 11/16/23 19:01 Labs: Lab Results 11/16/23 Range/Units 19:01 WBC 14.3 H (4.8-10.8) X10*3/uL RBC 5.20 (4.60-5.80) X10*6/uL Hgb 15.9 (14.0-18.0) g/dl Hct 45.7 (42.0-52.0) % MCV 87.9 (80.0-98.0) fL MCH 30.6 (27.0-33.0) pg MCHC 34.8 (31.0-36.0) g/dl RDW 11.9 (11.0-16.0) % Plt Count TNP MPV 8.7 L (9.4-12.4) fL Immature Gran % (Auto) 0.3 (0.0-0.4) % Neut % (Auto) 90.5 H (45-73) % Lymph % (Auto) 4.3 L (20-40) % [place] % (Auto) 4.8 (2-11) % Eos % (Auto) 0.0 (0-4) % Baso % (Auto) 0.1 (0-2) % Lymph # (Auto) 0.6 L (1.2-4.9) X10*3/uL [place] # (Auto) 0.7 (0.1-1.2) X10*3/uL Eos # (Auto) 0.0 (0.0-0.4) X10*3/uL Baso # (Auto) 0.0 (0.0-0.2) X10*3/uL Abs Immat Gran (auto) 0.04 H (0.00-0.03) X10*3/uL Absolute Neuts (auto) 12.9 H (2.0-8.3) x10*3/uL Absolute Nucleated RBC 0.000 (0.0-0.012) X10*3/uL Nucleated RBC % (auto) 0.0 (0.0-0.2) /100WBC Smear Tech's Comments VERIFIED Sodium 137 (135-145) mmol/L Potassium 3.9 (3.3-5.1) mmol/L Chloride 103 (96-108) mmol/L Carbon Dioxide 23 (22-29) mmol/L Anion Gap 15 (12-20) BUN 15 (9-16) mg/dL Creatinine 0.99 (0.5-1.4) mg/dL Estim Creat Clear Calc 93.6 Estimated GFR > 60 Random Glucose 107 (60-115) mg/dL Lactic Acid 1.7 (0.5-2.0) mmol/L Calcium 9.4 (8.4-10.2) mg/dL Total Bilirubin 0.9 (0.0-1.0) mg/dL AST 54 H (5-37) U/L ALT 110 H (0-40) U/L Alkaline Phosphatase 65 (39-117) U/L Total Protein 7.0 (6.5-8.0) g/dL Albumin 4.3 (3.5-5.0) g/dL Independent Interpretation I performed an independent interpretation of an: EKG Interpretation: Sinus tachycardia, HR-111, no STEMI, FL/QRS/QTC is within normal limits. Radiology Impression Discussion of test interpretation with radiology: I have reviewed the radiologist's reading. Radiologist Impression: Please see the discussion above External Record Review External record reviewed: Outpatient record, Prior outpatient labs and Prior outpatient radiology Chronic Conditions Patient?s care impacted by: Other NOEMÍ Critical Care Time Critical Care Time Critical Care Time: Yes Total Critical Care Time: 45 Attestation: I personally attest to this time spent taking care of the patient. Discharge Plan Discharge Clinical Impression: Sepsis, Aspiration pneumonia, Hypoxic Patient Disposition: Admitted As Inpatient
[2023-11-16 19:08] LABS: Basophils Percent Auto 0.1 % (0-2); Hematocrit 45.7 % (42.0-52.0); Hemoglobin 15.9 g/dl (14.0-18.0); Imm Gran Abs Auto 0.04 X10*3/uL (0.00-0.03); Imm Gran Pct Auto 0.3 % (0.0-0.4); Lymphocytes Absolute Auto 0.6 X10*3/uL (1.2-4.9); Lymphocytes Percent Auto 4.3 % (20-40); MANUAL DIFF FLAG SCAN; Mean Corpuscular HGB Conc 34.8 g/dl (31.0-36.0); Mean Corpuscular Hemoglobin 30.6 pg (27.0-33.0); Mean Corpuscular Volume 87.9 fL (80.0-98.0); Mean Platelet Volume 8.7 fL (9.4-12.4); Monocytes Absolute Auto 0.7 X10*3/uL (0.1-1.2); Monocytes Percent Auto 4.8 % (2-11); Neutrophils Absolute Auto 12.9 x10*3/uL (2.0-8.3); Neutrophils Percent Auto 90.5 % (45-73); Red Cell Distribution Width 11.9 % (11.0-16.0); SCAN SMEAR FLAG 1; White Blood Count 14.3 X10*3/uL (4.8-10.8)
[2023-11-16 19:18] LABS: Lactic Acid 1.7 mmol/L (0.5-2.0)
[2023-11-16 19:20] LABS: SLIDE REVIEW VERIFIED
[2023-11-16 19:23] LABS: Alanine Aminotransferase 110 U/L (0-40); Albumin Level 4.3 g/dL (3.5-5.0); Alkaline Phosphatase 65 U/L (39-117); Anion Gap 15 (12-20); Aspartate Amino Transferase 54 U/L (5-37); Bilirubin Total 0.9 mg/dL (0.0-1.0); Blood Urea Nitrogen 15 mg/dL (9-16); Calcium 9.4 mg/dL (8.4-10.2); Carbon Dioxide 23 mmol/L (22-29); Chloride 103 mmol/L (96-108); Creatinine Clr Calc Pharmacy 93.6; Estimated Glomerular Filt Rate > 60; Glucose Random 107 mg/dL (60-115); Potassium 3.9 mmol/L (3.3-5.1); Sodium 137 mmol/L (135-145)
--- NOTE | 2023-11-16 19:24 | HE.PHANOTE ---
Zosyn and vancomycin pulled and mixed. Given to RN at 1921, awaiting second set of culture to be drawn so meds can be hung.
--- NOTE | 2023-11-16 19:30 | PHA.MEDREC ---
Pharmacy Consult ? Medication Reconciliation Pharmacy has completed the medication reconciliation. Patient reported medicaitons. Albertina Conye, ColtonD
[2023-11-16] MEDS: 0.9 % Sodium Chloride 1,000 ML 999 ML IV (19:37)
[2023-11-16] MEDS: Piperacillin Sodium/Tazobactam 3.375 GM in 0.9 % Sodium Chloride 50 ML IV (19:39)
[2023-11-16] MEDS: methylPREDNISolone Sod Succ 125 MG/2 ML VIAL IVPUSH (20:05)
[2023-11-16] MEDS: Albuterol/Iprat 2.5/0.5MG 3 ML AMPUL.NEB INHALE (20:05)
[2023-11-16] MEDS: vancomycin/NS 2,000 MG/500 ML PLAST..BAG 250 MG IV (20:08)
--- NOTE | 2023-11-16 20:25 | PM.IMHP ---
History of Present Illness Date of Service: 11/16/23 Attending physician on admission: Angelito Galeas Chief Complaint: Aspiration Jesse Lovett is a 48 years old man with past medical history significant for well-controlled asthma, NOEMÍ on CPAP and hyperlipidemia was sent to the emergency department for evaluation after he aspirated during colonoscopy today. He is currently complain of some shortness of breath and cough. He denied chest pain. He denies abdominal pain, she was calm nausea, vomiting or diarrhea. He did not report any acute urinary symptoms. He is a former smoker. No alcohol abuse or illicit drug use reported. In the ED, he was found to have oxygen saturation 89% and currently requiring 2 liters/minute supplemental oxygen. He is also tachycardic and tachypneic. Blood pressure is normal. Blood workup is remarkable for leukocytosis, 14.3. CMP is remarkable for elevated liver enzymes (on Nov 07 elevated transaminases). Bilirubin and alk-phos are normal. Chest abdominal pelvis CT scan results were pending at the time of this evaluation. ED tx: Zosyn 3.375 g IV, vancomycin 2 g IV, NS 1 L bolus. Review of Systems Review of Systems: All 12 systems were reviewed and normal except as noted in HPI. FORMERLY [facility], [facility] Medical History (Updated 11/16/23 @ 21:36 by Angelito Galeas MD) Asthma Hypercholesterolemia Vitamin B12 deficiency (dietary) anemia NOEMÍ (obstructive sleep apnea) Family History Father Heart disease Stroke Mother Heart disease Diabetes Surgical History History of vasectomy Social History Housing: House (rented) Unable to assess alcohol history related to: Unable to respond Alcohol intake: current Alcohol intake frequency: a few times a week Patient Tobacco Use Status: Former Tobacco user Quit Date: 11/08/20 Cigarettes Per Day: 8 Smoked in Last 30 Days: No e-Cigarette/Vaping Use: Never Used Second Hand Smoke Exposure: No Use of substances other than those prescribed or required for medical reasons: No Advance Directives: No Advance Directives Information Provided: No service: No Current occupational status: employed and other Cognitive needs: No Hearing needs: No Vision needs: No Meds Allergies Allergy/AdvReac Type Severity Reaction Status Date / Time atorvastatin AdvReac Intermediate cramps Verified 09/06/23 14:20 Active Medications: Current Medications Acetaminophen (Acetaminophen 325 Mg Tablet) 975 mg PO Q6H PRN PRN Reason: fevera and pain Albuterol/Ipratropium (Albuterol/Iprat 2.5/0.5mg 3 Ml Ampul.Neb) 3 ml INHALE Q4H PRN PRN Reason: Shortness of Breath/Wheezing Heparin Sodium (Porcine) (Heparin Sodium,Porcine 5,000 Unit/Ml Vial) 5,000 unit SUBCUT Q8H FORD Vancomycin HCl (Vancomycin/Ns) 2,000 mg in 500 mls @ 250 mls/hr IV ONCE ONE Stop: 11/16/23 20:59 Last Admin: 11/16/23 20:08 Dose: 250 mls/hr Sodium Chloride (Ns) 1,000 mls @ 999 mls/hr IV .Q1H1M FORD Stop: 11/16/23 20:30 Last Admin: 11/16/23 19:37 Dose: 999 mls/hr Sodium Chloride (Ns) 1,000 mls @ 100 mls/hr IVCONT .Q10H FORD Piperacillin Sod/Tazobactam (Sod 3.375 gm/ Sodium Chloride) 50 mls @ 100 mls/hr IV Q6H FORD Sodium Chloride (0.9 % Sodium Chloride Flush 3 Ml Syringe) 3 ml IVFLUSH QSHIFT FORD Home Medications Medication Instructions Recorded Confirmed Last Taken Type pantoprazole 40 mg tablet,delayed 40 mg PO DAILY PRN Acid Reflux 11/16/23 11/16/23 Unknown History release rosuvastatin 10 mg tablet 10 mg PO BEDTIME 11/16/23 11/16/23 11/14/23 History Physical Exam Vital Signs and Narrative: Vital Signs: Last Vital Signs Temp 99.6 F 11/16/23 19:46 Pulse 106 H 11/16/23 20:06 Resp 25 H 11/16/23 20:06 BP 118/65 11/16/23 19:46 Pulse Ox 95 11/16/23 19:46 O2 Del Method Nasal Cannula 11/16/23 19:46 O2 Flow Rate 2 11/16/23 19:46 Oxygen Flow Rate 3 11/16/23 18:00 BMI result Body Mass Index 33.4 Constitutional - Awake and Alert, No apparent distress. Pleasant. Cooperative. Acutely ill. Febrile. On nasal cannula. Eyes - Pupils equally rounds. No sclera icterus. Heart - S1S2, RRR, No edema Lungs - Normal lung expansion, Normal respiratory effort, No respiratory distress. Tachypnea. Bilateral wheezing. Abdomen - NT / ND; +BS; No rebound or guarding Extremities - No calf tenderness bilaterally, no swelling Skin - Warm/Dry Neurological - Alert & oriented x3. Normal speech. Normal behaviour Psychological - Appropriate affect. Results Labs 11/16/23 19:01 11/16/23 19:01 Labs: Laboratory Results - last 24 hr 11/16/23 19:01 MCV 87.9 MCH 30.6 MCHC 34.8 RDW 11.9 Plt Count TNP MPV 8.7 L Immature Gran % (Auto) 0.3 Neut % (Auto) 90.5 H Lymph % (Auto) 4.3 L [place] % (Auto) 4.8 Eos % (Auto) 0.0 Baso % (Auto) 0.1 Lymph # (Auto) 0.6 L [place] # (Auto) 0.7 Eos # (Auto) 0.0 Baso # (Auto) 0.0 Abs Immat Gran (auto) 0.04 H Absolute Neuts (auto) 12.9 H Absolute Nucleated RBC 0.000 Nucleated RBC % (auto) 0.0 Smear Tech's Comments VERIFIED Anion Gap 15 Estim Creat Clear Calc 93.6 Estimated GFR > 60 Random Glucose 107 Lactic Acid 1.7 Calcium 9.4 Total Bilirubin 0.9 AST 54 H ALT 110 H Alkaline Phosphatase 65 Total Protein 7.0 Albumin 4.3 Assessment and Plan (1) Hypoxic respiratory failure: Status: Acute (2) Acute asthma exacerbation: Status: Acute (3) Aspiration syndrome: Status: Acute (4) Sepsis: Status: Acute (5) NOEMÍ (obstructive sleep apnea): Status: Acute (6) HLD (hyperlipidemia): Qualifiers: Hyperlipidemia type: mixed hyperlipidemia Qualified Code(s): E78.2 - Mixed hyperlipidemia Status: Acute (7) Abnormal liver enzymes: Status: Acute Plan Jesse Lovett is a 48 years old man with past medical history significant for well-controlled asthma, NOEMÍ on CPAP and hyperlipidemia Acute respiratory failure secondary to aspiration associated with acute asthma exacerbation. Admit to hospitalist service. Continue supplemental oxygen to keep oxygen saturation > 90%. Start bronchodilator therapy and IV Solu-Medrol. Continue empiric IV antibiotic therapy with Zosyn. We will follow chest, abdomen pelvis CT scan results. SIRS criteria (no severe sepssecondary to above: Tachycardia, fever. No hypotension and normal lactic acid. Elevated transaminases (this is not new). Statin-induced? Continue to monitor for now. Hyperlipidemia. Continue statin. Obstructive sleep apnea. Home CPAP due to recent aspiration. DVT prophylaxis: Heparin subcut. Code status: Full. Patient will need hospitalization for at least 2 midnights for acute respiratory failure secondary/acute asthma exacerbation due to aspiration treatment with empiric IV antibiotic therapy, supplemental oxygen, IV steroids and bronchodilator therapy. 9:33 PM - Chest, abdomen pelvis CT scans: IMPRESSION: 1. There are diffuse alveolar infiltrates seen within the left upper and lower lobes. 2. There are bilateral lower lung field scattered foci of minor scar/subsegmental atelectasis, without associated focal airway obstruction. 3. No thoracic lymphadenopathy or pleural effusion is seen. 4. There is a moderate hiatus hernia. 5. There are umbilical and right inguinal hernia defects, as detailed. 6. There is no bowel obstruction, free intraperitoneal air or abscess. 7. No acute or aggressive osseous finding is noted. Quality Stroke Does the patient have a stroke diagnosis?: No VTE Prior VTE?: No VTE Risk Level:: Medical - moderate - high VTE Device Contraindication: Treatment Not Indicated VTE Drug Contraindication: N/A - Med Ordered
--- NOTE | 2023-11-16 20:26 | PC.NURSE ---
abx delayed for bld cultures
[2023-11-17] VITALS (10 sets, daily range): BP systolic 112–145; BP diastolic 58–69; PULSE 82–105; RESP 16–20; TEMP 36–37.1; O2SAT 92–98
[2023-11-17] MEDS: 0.9 % Sodium Chloride 1,000 ML 100 ML IVCONT ×2 (01:06→12:24)
[2023-11-17] MEDS: Piperacillin Sodium/Tazobactam 3.375 GM in 0.9 % Sodium Chloride 50 ML IV ×4 (01:06→23:32)
[2023-11-17] MEDS: 0.9 % Sodium Chloride Flush 3 ML SYRINGE IVFLUSH ×3 (01:07→14:09)
[2023-11-17 06:33] LABS: Hematocrit 42.5 % (42.0-52.0); Hemoglobin 14.4 g/dl (14.0-18.0); Mean Corpuscular HGB Conc 33.9 g/dl (31.0-36.0); Mean Corpuscular Hemoglobin 30.6 pg (27.0-33.0); Mean Corpuscular Volume 90.4 fL (80.0-98.0); Platelet Count 188 X10*3/uL (160-400); White Blood Count 19.7 X10*3/uL (4.8-10.8)
[2023-11-17 07:01] LABS: Band Neutrophils Percent 24 % (3-5); Lymphocytes Absolute Manual 0.4 X10*3/uL (1.2-4.9); Lymphocytes Percent Manual 2 % (20-40); Monocytes Absolute Manual 0.2 X10*3/uL (0.1-1.2); Monocytes Percent Manual 1 % (2-11); Neutrophils Absolute Manual 19.1 X10*3/uL (2.0-8.3); Neutrophils Percent Manual 73 % (45-73)
[2023-11-17 07:02] LABS: Alanine Aminotransferase 87 U/L (0-40); Alkaline Phosphatase 50 U/L (39-117); Anion Gap 12 (12-20); Aspartate Amino Transferase 37 U/L (5-37); Bilirubin Total 0.8 mg/dL (0.0-1.0); Blood Urea Nitrogen 12 mg/dL (9-16); Calcium 9.2 mg/dL (8.4-10.2); Carbon Dioxide 25 mmol/L (22-29); Chloride 107 mmol/L (96-108); Creatinine Clr Calc Pharmacy 93.6; Estimated Glomerular Filt Rate > 60; Glucose Random 177 mg/dL (60-115); Potassium 4.1 mmol/L (3.3-5.1); Sodium 140 mmol/L (135-145); Total Protein 6.8 g/dL (6.5-8.0)
[2023-11-17 07:06] LABS: Platelet Estimate NORMAL (NORMAL); Platelet Morphology Comment NORMAL; RBC Morphology NORMAL
[2023-11-17] MEDS: Heparin Sodium,Porcine 5,000 UNIT/ML VIAL 5000 UNIT SUBCUT ×2 (09:11→17:25)
--- NOTE | 2023-11-17 10:08 | MHC.CM.PN ---
Pt self-care, lives at home with his significant other and 2 young children. Pts significant other will transport him home at D/C. HCP completed with pt, now on file. PCP: Dr. Cecilio Lewis
--- NOTE | 2023-11-17 12:47 | P.PNIM_ITS ---
Subjective Subjective Date of Service: 11/17/23 Interval History: seen and examined this morning follow up for pneumonia breathing much better then yesterday Review of Systems Review of Systems: Yes all other systems are reviewed and are negative Constitutional Constitutional: Denies chills and Denies fever(s) Cardiovascular Cardiovascular: Denies chest pain, Denies palpitations and Denies dyspnea Respiratory Respiratory: Denies dyspnea Endocrine Endocrine: Denies palpitations Physical Exam 2 Vital Signs: Vital Signs: Last Vital Signs Temp 96.8 F 11/17/23 12:00 Pulse 82 11/17/23 12:00 Resp 19 11/17/23 12:00 BP 119/67 11/17/23 12:00 Pulse Ox 97 11/17/23 12:00 O2 Del Method Nasal Cannula 11/17/23 12:00 O2 Flow Rate 2 11/17/23 12:00 Oxygen Flow Rate 3 11/16/23 18:00 BMI result Body Mass Index 33.4 Const: General: cooperative, comfortable, no acute distress, alert and awake Nutritional Appearance: average body habitus Orientation/consciousness: p atient oriented x3 Resp: Other: dim left side, rhonchi, right side clear Effort & Inspection: normal respiratory effort, able to speak in complete sentences, no respiratory distress and no use of accessory muscles Cardio: Rate: regular rate GI: Inspection: No distended Palpation (GI): Soft to palpation and nontender Neuro: General: patient oriented x3, moves all extremities and CN's II-XI intact bilaterally Extrem: General: Yes no pedal edema Objective Data Active Medications Acetaminophen (Acetaminophen 325 Mg Tablet) 975 mg PO Q6H PRN PRN Reason: fevera and pain Albuterol/Ipratropium (Albuterol/Iprat 2.5/0.5mg 3 Ml Ampul.Neb) 3 ml INHALE Q4H PRN PRN Reason: Shortness of Breath/Wheezing Heparin Sodium (Porcine) (Heparin Sodium,Porcine 5,000 Unit/Ml Vial) 5,000 unit SUBCUT Q8H [facility] Last Admin: 11/17/23 09:11 Dose: 5,000 unit Documented By: POPPY Sodium Chloride (Ns) 1,000 mls @ 100 mls/hr IVCONT .Q10H [facility] Last Admin: 11/17/23 12:24 Dose: 100 mls/hr Documented By: [email or web address] Piperacillin Sod/Tazobactam (Sod 3.375 gm/ Sodium Chloride) 50 mls @ 100 mls/hr IV Q6H [facility] Last Infusion: 11/17/23 09:40 Dose: Infused Documented By: ALEJANDRO Sodium Chloride (0.9 % Sodium Chloride Flush 3 Ml Syringe) 3 ml IVFLUSH QSHIFT [facility] Last Admin: 11/17/23 09:11 Dose: 3 ml Documented By: POPPY Labs 11/17/23 05:55 11/17/23 05:55 Labs: Laboratory Results - last 24 hr 11/16/23 11/17/23 19:01 05:55 MCV 87.9 90.4 MCH 30.6 30.6 MCHC 34.8 33.9 RDW 11.9 12.0 Plt Count TNP 188 MPV 8.7 L 9.0 L Immature Gran % (Auto) 0.3 Cancelled Neut % (Auto) 90.5 H Cancelled Lymph % (Auto) 4.3 L Cancelled Grady % (Auto) 4.8 Cancelled Eos % (Auto) 0.0 Cancelled Baso % (Auto) 0.1 Cancelled Lymph # (Auto) 0.6 L Cancelled Grady # (Auto) 0.7 Cancelled Eos # (Auto) 0.0 Cancelled Baso # (Auto) 0.0 Cancelled Abs Immat Gran (auto) 0.04 H Cancelled Absolute Neuts (auto) 12.9 H Cancelled Absolute Nucleated RBC 0.000 0.000 Nucleated RBC % (auto) 0.0 0.0 Neutrophils % (Manual) 73 Band Neutrophils % 24 H Lymphocytes % (Manual) 2 L Monocytes % (Manual) 1 L Abs Neuts (Manual) 19.1 H Lymphocytes # (Manual) 0.4 L Monocytes # (Manual) 0.2 Platelet Estimate NORMAL Plt Morphology Comment NORMAL RBC Morphology NORMAL Smear Tech's Comments VERIFIED Anion Gap 15 12 Estim Creat Clear Calc 93.6 93.6 Estimated GFR > 60 > 60 Random Glucose 107 177 H Lactic Acid 1.7 Calcium 9.4 9.2 Total Bilirubin 0.9 0.8 AST 54 H 37 ALT 110 H 87 H Alkaline Phosphatase 65 50 Total Protein 7.0 6.8 Albumin 4.3 4.0 Assessment and Plan (1) Aspiration pneumonia: Status: Acute Plan This is a 48 years old man with past medical history significant for well- controlled asthma, NOEMÍ on CPAP and hyperlipidemia who was sent to the ED after he was noted to have aspiration event during colonoscopy and was hypoxic after procedure. Acute respiratory failure secondary to aspiration pneumonia CT chest showing FLORECITA and LLL infiltrates afebrile today, leukocytosis trending up likely due to steroids continue zosyn wean supplemental oxygen as tolerated blood cultures pending mild intermittent asthma received one dose of steroids no wheezing today no acute exacerbation prn breathing treatments sepsis due to above no severe features. tachycardia and tachypnea resolved Elevated transaminases chronic outpatient follow up Obstructive sleep apnea. continue baseline CPAP DVT prophylaxis: Heparin subcut. Code status: Full. requires ongoing inpatient stay for acute respiratory failure secondary due to aspiration treatment with IV antibiotic therapy, supplemental oxygen and close monitoring of respiratory status Quality Stroke Does the patient have a stroke diagnosis?: No VTE Prior VTE?: No VTE Risk Level:: Medical - moderate - high VTE Device Contraindication: Treatment Not Indicated VTE Drug Contraindication: N/A - Med Ordered
[2023-11-17] MEDS: Albuterol/Iprat 2.5/0.5MG 3 ML AMPUL.NEB INHALE (20:38)
[2023-11-17] MEDS: Calcium Carbonate 750 MG TAB.CHEW 1500 MG PO (23:31)
[2023-11-18] VITALS (7 sets, daily range): BP systolic 100–138; BP diastolic 59–75; PULSE 79–90; RESP 16–20; TEMP 36.1–37.1; O2SAT 93–96
[2023-11-18] MEDS: 0.9 % Sodium Chloride Flush 3 ML SYRINGE IVFLUSH ×3 (06:09→17:48)
[2023-11-18] MEDS: Omeprazole 20 MG CAPSULE.DR PO (06:10)
[2023-11-18] MEDS: Piperacillin Sodium/Tazobactam 3.375 GM in 0.9 % Sodium Chloride 50 ML IV ×3 (06:10→17:48)
[2023-11-18 06:27] LABS: Hematocrit 37.7 % (42.0-52.0); Hemoglobin 12.8 g/dl (14.0-18.0); Mean Corpuscular Hemoglobin 31.4 pg (27.0-33.0); Mean Corpuscular Volume 92.4 fL (80.0-98.0); Mean Platelet Volume 9.2 fL (9.4-12.4); Platelet Count 181 X10*3/uL (160-400); Red Blood Count 4.08 X10*6/uL (4.60-5.80); Red Cell Distribution Width 12.8 % (11.0-16.0); White Blood Count 14.3 X10*3/uL (4.8-10.8)
--- NOTE | 2023-11-18 09:36 | P.PNIM_ITS ---
Subjective Subjective Date of Service: 11/18/23 Interval History: seen and examined this morning follow up for pneumonia had hemoptysis overnight; still with cough, denies shortness of breath Review of Systems Review of Systems: Yes all other systems are reviewed and are negative Constitutional Constitutional: Denies chills and Denies fever(s) Cardiovascular Cardiovascular: Denies chest pain, Denies palpitations and Denies dyspnea Respiratory Respiratory: Reports cough and Denies dyspnea Gastrointestinal Gastrointestinal: Denies abdominal pain, Denies nausea and Denies vomiting Endocrine Endocrine: Denies palpitations Physical Exam 2 Vital Signs: Vital Signs: Last Vital Signs Temp 97.5 F 11/18/23 07:05 Pulse 84 11/18/23 07:05 Resp 20 11/18/23 07:05 BP 124/75 11/18/23 07:05 Pulse Ox 96 11/18/23 07:05 O2 Del Method Room Air 11/18/23 07:05 O2 Flow Rate 2 11/17/23 12:00 Oxygen Flow Rate 3 11/16/23 18:00 BMI result Body Mass Index 33.4 Const: General: cooperative, comfortable, no acute distress, alert and awake Nutritional Appearance: average body habitus Orientation/consciousness: p atient oriented x3 Resp: Other: dim left side, expiratory rhonchi, right side clear; no wheeze Effort & Inspection: normal respiratory effort, able to speak in complete sentences, no respiratory distress and no use of accessory muscles Cardio: Rate: regular rate GI: Inspection: No distended Palpation (GI): Soft to palpation and nontender Neuro: General: patient oriented x3, moves all extremities and CN's II-XI intact bilaterally Extrem: General: Yes no pedal edema Objective Data Active Medications Acetaminophen (Acetaminophen 325 Mg Tablet) 975 mg PO Q6H PRN PRN Reason: fevera and pain Albuterol/Ipratropium (Albuterol/Iprat 2.5/0.5mg 3 Ml Ampul.Neb) 3 ml INHALE Q4H PRN PRN Reason: Shortness of Breath/Wheezing Last Admin: 11/17/23 20:38 Dose: 3 ml Documented By: MAYA Calcium Carbonate (Calcium Carbonate 750 Mg Tab.Chew) 1,500 mg PO Q8H PRN PRN Reason: heartburn Last Admin: 11/17/23 23:31 Dose: 1,500 mg Documented By: XIMENA Piperacillin Sod/Tazobactam (Sod 3.375 gm/ Sodium Chloride) 50 mls @ 100 mls/hr IV Q6H [facility] Last Infusion: 11/18/23 06:40 Dose: Infused Documented By: ALEJANDRO Omeprazole (Omeprazole 20 Mg Capsule.Dr) 20 mg PO DAILY@0630 [facility] Last Admin: 11/18/23 06:10 Dose: 20 mg Documented By: JUICE Sodium Chloride (0.9 % Sodium Chloride Flush 3 Ml Syringe) 3 ml IVFLUSH QSHIFT [facility] Last Admin: 11/18/23 08:08 Dose: 3 ml Documented By: ALEJANDRO Labs 11/18/23 05:53 11/17/23 05:55 Labs: Laboratory Results - last 24 hr 11/18/23 05:53 MCV 92.4 MCH 31.4 MCHC 34.0 RDW 12.8 Plt Count 181 MPV 9.2 L Absolute Nucleated RBC 0.000 Nucleated RBC % (auto) 0.0 Microbiology Microbiology Results: Microbiology 11/16/23 19:27 Blood Culture - Preliminary Blood - Venous No growth after 24 hours. 11/16/23 19:01 Blood Culture - Preliminary Blood - Venous No growth after 24 hours. Assessment and Plan (1) Aspiration pneumonia: Status: Acute (2) Hemoptysis: Status: Acute Plan This is a 48 years old man with past medical history significant for well- controlled asthma, NOEMÍ on CPAP and hyperlipidemia who was sent to the ED after he was noted to have aspiration event during colonoscopy and was hypoxic after procedure. Acute respiratory failure secondary to aspiration pneumonia (witnessed aspiration during colonoscopy) CT chest showing FLORECITA and LLL infiltrates afebrile, wbc trending down continue zosyn, transition to po augmentin on discharge, likely 5-7 days wean supplemental oxygen as tolerated blood cultures negative to date hemoptysis heparin stopped follow CBC mild intermittent asthma received one dose of steroids no wheezing no acute exacerbation prn breathing treatments sepsis due to above no severe features. tachycardia and tachypnea resolved colon polyp had colonoscopy 11/16 for screening:One small and one medium sized polyps removed, Moderate diverticulosis seen in the sigmoid colon, Moderate hemorrhoids on retroflexed exam Await pathology results, Patient has an appointment on 12/07/23 in the GI Clinic with Kajal Robert NP Elevated transaminases chronic outpatient follow up NOEMÍ continue baseline CPAP DVT prophylaxis: mechanical devices Code status: Full. requires ongoing inpatient stay for acute respiratory failure secondary due to aspiration treatment with IV antibiotic therapy, supplemental oxygen and close monitoring of respiratory status Quality Stroke Does the patient have a stroke diagnosis?: No VTE Prior VTE?: No VTE Risk Level:: Medical - moderate - high VTE Device Contraindication: Treatment Not Indicated VTE Drug Contraindication: N/A - Med Ordered
[2023-11-19] MEDS: Piperacillin Sodium/Tazobactam 3.375 GM in 0.9 % Sodium Chloride 50 ML IV ×2 (00:08→06:05)
[2023-11-19] MEDS: 0.9 % Sodium Chloride Flush 3 ML SYRINGE IVFLUSH (00:11)
[2023-11-19 01:43] VITALS: RESP 16
[2023-11-19 03:16] VITALS: BP 141/74; PULSE 80; RESP 16; TEMP 37; O2SAT 96
[2023-11-19] MEDS: Omeprazole 20 MG CAPSULE.DR PO (06:05)
[2023-11-19 06:28] LABS: Hematocrit 41.1 % (42.0-52.0); Hemoglobin 13.5 g/dl (14.0-18.0); Mean Corpuscular HGB Conc 32.8 g/dl (31.0-36.0); Mean Corpuscular Hemoglobin 30.3 pg (27.0-33.0); Mean Corpuscular Volume 92.2 fL (80.0-98.0); Mean Platelet Volume 9.1 fL (9.4-12.4); Platelet Count 187 X10*3/uL (160-400); Red Blood Count 4.46 X10*6/uL (4.60-5.80); Red Cell Distribution Width 12.4 % (11.0-16.0); White Blood Count 10.8 X10*3/uL (4.8-10.8)
[2023-11-19 07:51] VITALS: BP 139/75; PULSE 79; RESP 20; TEMP 36.1; O2SAT 94
--- NOTE | 2023-11-19 09:44 | P.DS_ITS ---
DS: Providers Provider Date of Service: 11/19/23 Date of admission: 11/16/23 19:43 Primary care physician: Unknown Physician DS: Diagnosis Discharge Diagnosis (1) Aspiration pneumonia: Status: Acute (2) Hemoptysis: Status: Acute DS: Summary Hospital Course Hospital Course: History and physical as per admitting provider. Jesse Lovett is a 48 years old man with past medical history significant for well-controlled asthma, NOEMÍ on CPAP and hyperlipidemia was sent to the emergency department for evaluation after he aspirated during colonoscopy today. He is currently complain of some shortness of breath and cough. He denied chest pain. He denies abdominal pain, she was calm nausea, vomiting or diarrhea. He did not report any acute urinary symptoms. He is a former smoker. No alcohol abuse or illicit drug use rep orted. In the ED, he was found to have oxygen saturation 89% and currently requiring 2 liters/minute supplemental oxygen. He is also tachycardic and tachypneic. Blood pressure is normal. Blood workup is remarkable for leukocytosis, 14.3. CMP is remarkable for elevated liver enzymes (on Nov 07 elevated transaminases). Bilirubin and alk-phos are normal. Chest abdominal pelvis CT scan results were pending at the time of this evaluation. ED tx: Zosyn 3.375 g IV, vancomycin 2 g IV, NS 1 L bolus. 48-year-old man treated for acute aspiration pneumonia and acute hypoxic respiratory failure. Patient developed after colonoscopy. Treated with IV Zosyn, vancomycin, supplemental oxygen, IV Solu-Medrol, bronchodilator therapy. Respiratory failure soon resolved. Patient is not requiring oxygen at this time. Plan is to discharge home with 2 more days of antibiotics to complete 5 days total. Hyperlipidemia. Continue statin Obstructive sleep apnea on CPAP Time Attestation Discharge coordination time: Greater than 30 minutes Quality: Safe Use of Opioids Does Pt have an Active Cancer Diagnosis on the Problem List?: No Quality: Stroke Does the patient have a stroke diagnosis?: No Physical Exam Vital Signs: Vital Signs: Last Vital Signs Temp 96.9 F 11/19/23 07:51 Pulse 79 11/19/23 07:51 Resp 20 11/19/23 07:51 BP 139/75 11/19/23 07:51 Pulse Ox 94 11/19/23 07:51 O2 Del Method Room Air 11/19/23 07:51 O2 Flow Rate 1 11/19/23 03:16 Oxygen Flow Rate 3 11/16/23 18:00 BMI result Body Mass Index 33.4 Appearing in no acute distress head is normocephalic atraumatic eyes pupils are PERRLA sclera is anicteric mouth throat mucous membranes are intact and moist neck is supple no lymphadenopathy, no JVD noted lung sounds are clear to auscultation heart regular rate rhythm, clear S1, S2 positive bowel sounds, abdomen is soft, nontender neuro patient is alert x3, no focal deficits DS: Data Data Completed and Pending Labs on day of discharge: Laboratory Results - last 24 hr 11/19/23 05:44 WBC 10.8 RBC 4.46 L Hgb 13.5 L Hct 41.1 L MCV 92.2 MCH 30.3 MCHC 32.8 RDW 12.4 Plt Count 187 MPV 9.1 L Absolute Nucleated RBC 0.000 Nucleated RBC % (auto) 0.0 Preliminary micro results at discharge 11/16/23 19:27 Blood Culture - Preliminary Blood - Venous No growth after 48 hours. 11/16/23 19:01 Blood Culture - Preliminary Blood - Venous No growth after 48 hours. Discharge Plan Discharge Anticipated Discharge Date/Time: 11/19/23 09:28 Patient Disposition: Home, Self-Care Discharge Diagnosis: Aspiration pneumonia Discharge Medications: New amoxicillin-pot clavulanate 875-125 mg tablet 1 tab PO BID Qty: 4 0RF Continued pantoprazole 40 mg tablet,delayed release (DR/EC) 40 mg PO DAILY PRN (Reason: Acid Reflux) rosuvastatin 10 mg tablet 10 mg PO BEDTIME albuterol sulfate 90 mcg/actuation HFA aerosol inhaler 1 puff inhalation DAILY PRN (Reason: shortness of breath or wheezing) 30 Days Qty: 8.5 1RF Discharge Orders: Discharge Order (Routine); Ordered 11/19/23 Ordered By: Matilda Ocampo Diet: Advance to usual diet Activity on Discharge: As tolerated Stand Alone Forms: Patient Portal Discharge page Care Plan Goals: complete resolution of symptoms Health Concerns: Aspiration pneumonia Plan of Treatment: Follow-up with primary care provider as needed Take all medications as prescribed Assessment: Discharge summary
--- NOTE | 2023-11-19 09:53 | MHC.CM.PN ---
pt has been medically cleared to DC, he will go home via family transport, DC plan is home, self care.
== END 2023-11-19 12:11 | disposition home or self-care (01) | DRG 137 ==
LOC: HO.ED 19:19 → HO.EDOVER 20:00 → HO.IMC 21:24
PROVIDERS: Physician Assistant Medical; Admitting Provider Internal Medicine; Emergency Provider Student in an Organized Health Care Education/Training Program; PCP Internal Medicine; Visit Provider Nurse Practitioner Acute Care
DX: J69.0 Pneumonitis due to inhalation of food and vomit (principal); J96.01 Acute respiratory failure with hypoxia; J45.21 Mild intermittent asthma with (acute) exacerbation; E78.2 Mixed hyperlipidemia; R04.2 Hemoptysis; G47.33 Obstructive sleep apnea (adult) (pediatric); Z87.891 Personal history of nicotine dependence; Z79.899 Other long term (current) drug therapy
CPT/HCPCS: 36415; 71250; 74176; 80053; 83605; 85007; 85025; 85027; 87040; 93005; 94640; 94660; 99285; J1644; J2543; J2930; J3370

== ENCOUNTER → 2023-11-16 18:12 | Outpatient (BNV) | payer OTHER, SELFPAY | PROVIDERS: Admitting Provider Internal Medicine; Emergency Provider Student in an Organized Health Care Education/Training Program; Visit Provider Internal Medicine | DX: R00.0 Tachycardia, unspecified (principal); R94.31 Abnormal electrocardiogram [ECG] [EKG] | CPT/HCPCS: 93010 ==

== ENCOUNTER → 2023-11-16 19:43 | Outpatient (BNV) | payer OTHER, SELFPAY | PROVIDERS: Admitting Provider Internal Medicine; Emergency Provider Student in an Organized Health Care Education/Training Program; Visit Provider Internal Medicine | DX: J96.01 Acute respiratory failure with hypoxia (principal); J45.901 Unspecified asthma with (acute) exacerbation; T17.900A Unspecified foreign body in respiratory tract, part unspecified causing asphyxiation, initial encounter; A41.9 Sepsis, unspecified organism; G47.33 Obstructive sleep apnea (adult) (pediatric); E78.2 Mixed hyperlipidemia; R74.8 Abnormal levels of other serum enzymes; J69.0 Pneumonitis due to inhalation of food and vomit | CPT/HCPCS: 99223; 99232; 99238 ==

== ENCOUNTER 2023-12-13 13:53 | Outpatient (AMB) | payer OTHER, SELFPAY ==
--- NOTE | 2023-12-13 13:58 | A.OFFPC_ITS ---
Vital Signs 12/13/23 14:01 Height 5 ft 5 in Weight 207 lb 6 oz BMI 34.5 BP 120/64 Blood Pressure Location Rt brachial Position Sitting Pulse 67 Pulse Source Pulse Oximeter Pulse Oximetry (%) 97 Oxygen Delivery Method Room Air Intake Visit Reasons: 3 month f/u Intake Note: Patient is here to follow up on Hypercholesterolemia, vit b12 deficiency. Envelope Folding Machine Adjuster Required: No Speech Communication Professor: Not Required per policy Accompanied by: Self / Same As Patient Allergies atorvastatin Adverse Reaction (Intermediate, Verified 12/13/23 14:00) cramps Tobacco use date assessed: 12/13/23 Dental Screening Dental Screen Date: 12/13/23 Did you have a dental visit in the last 12 months?: Yes Did you have a dental problem in the last 6 months where you did not have access to dental care?: No Was dental information given to patient?: Patient has dentist HPI 3 month f/u HPI Details 48-year-old male presents to the office to discuss his medical condition. Since last office visit, patient underwent a routine colonoscopy. This was complicated by aspiration pneumonia and he was in the hospital for 3 days. Patient made a full recovery. Recently had blood work done and would like to know the results. Continues to wear CPAP at home. Patient also would like to restart his Zoloft. He was taking it for anxiety and depression many years ago. He again has a young child to take care of at home which is adding to his anxiety. [facility] Medical History (Updated 12/14/23 @ 10:01 by Cecilio Lewis MD) Diabetes mellitus Generalized anxiety disorder NOEMÍ (obstructive sleep apnea) HLD (hyperlipidemia) Asthma Hypercholesterolemia Vitamin B12 deficiency (dietary) anemia Surgical History History of colonoscopy History of vasectomy Family History Father Heart disease Stroke Mother Heart disease Diabetes Social History Household Members: Significant Other and Children Housing: House Do you presently have visiting nurse or other home services: No Unable to assess alcohol history related to: Unable to respond Alcohol intake: current Alcohol intake frequency: a few times a week Patient Tobacco Use Status: Former Tobacco user Quit Date: 11/08/20 Cigarettes Per Day: 8 e-Cigarette/Vaping Use: Never Used Second Hand Smoke Exposure: No service: No Current occupational status: employed and other Cognitive needs: No Hearing needs: No Vision needs: No Questionnaire PHQ-9 Over the last 2 weeks, how often have you been bothered by any of the following problems? 1. Little interest or pleasure in doing things: not at all 2. Feeling down, depressed, or hopeless: not at all 3. Trouble falling or staying asleep, or sleeping too much: not at all 4. Feeling tired or having little energy: not at all 5. Poor appetite or overeating: not at all 6. Feeling bad about yourself - or that you are a failure or have let yourself or your family down: not at all 7. Trouble concentrating on things, such as reading the newspaper or watching television: not at all 8. Moving or speaking so slowly that other people could have noticed. Or the opposite - being so fidgety or restless that you have been moving around a lot more than usual: not at all 9. Thoughts that you would be better off or of hurting yourself in some way: not at all Total score: 0 Depression Screening Interpretation: Negative Depression Screening Done: Yes Source: Developed by Drs. Sincere Leo, Sole Nino, Maury Ravi and colleagues, with an educational mackenzie from [employer]. Thrive Questionnaire Date Thrive assessed: 11/17/23 Currently or been in a relationship where the following occur: no concerns reported THRIVE Score: 0 AUDIT C Alcohol Use Questionnaire (AUDIT-C) 1. How often do you have a drink containing alcohol?: Monthly or less 2. How many drinks containing alcohol do you have on a typical day when you are drinking?: 1 or 2 Total Score: 1 MAY-7 AMB Questionnaire MAY-7 Date MAY - 7 assessed: 12/13/23 Feeling nervous, anxious, or on edge: 0 = Not at all Not being able to stop or control worryin = Not at all Worrying too much about different things: 0 = Not at all Trouble relaxin = Not at all Being so restless that it is hard to sit still: 0 = Not at all Becoming easily annoyed or irritable: 0 = Not at all Feeling afraid as if something awful might happen: 0 = Not at all Total MAY-7 score (0-4 normal; 5-9 mild; 10-14 moderate; 15-21 severe): 0 Source: Developed by Drs. Sincere Leo, Sole Nino, Maury Ravi and colleagues, with an educational mackenzie from [employer]. Physical exam (Primary Care) Vital Signs: Last Vital Signs Pulse 67 12/13/23 14:01 BP 120/64 12/13/23 14:01 Pulse Ox 97 12/13/23 14:01 Oxygen Delivery Method Room Air 12/13/23 14:01 Care Plan Goal for BP management: Blood pressure is in range. BMI result Body Mass Index 34.5 BMI Assessment/Plan discussion: High (1 lb per week weight loss suggested.) BMI High, discussed plan: lifestyle, weight reduction, dietary and physical activity Tobacco/Smoking Status: Tobacco use Status Tobacco use date assessed 12/13/23 12/13/23 14:09 Patient Tobacco Use Status Former Tobacco user 12/13/23 14:09 e-Cigarette/Vaping Use Never Used 12/13/23 14:09 PHQ-9: PHQ-9 Score PHQ-9: Total score 0 12/14/23 10:03 Depression Screening Interpretation: Negative Thrive Assessment: Date of Thrive Assessment Date Thrive assessed 11/17/23 12/13/23 14:09 Currently or been in a relationship where the following occur: no concerns reported Const General: cooperative and healthy appearing Nutritional Appearance: well nourished Orientation/consciousness: patient oriented x3 Limitations: no limitations HENMT Head: Yes normal to inspection Eyes General: appearance normal, both eyes and all related structures Neck Neck: Yes normal visual inspection Chest Chest palpation & inspection: normal palpation of entire chest wall Resp Effort & Inspection: normal respiratory effort Neuro General: patient oriented x3 Results AMB Hemoglobin A1c AMB Hemoglobin A1c 6.1 % Last Edit by MATT Grey on 12/13/23 15:02 Results Reviewed Results Reviewed: Laboratory Last Values Hgb A1c (Clinic) 6.1 % (4.0-6.0) H 12/13/23 14:48 Assessment and Plan Assessment & Plan (1) Generalized anxiety disorder: Code(s): F41.1 - Generalized anxiety disorder Plan: In the past patient was on a combination of Zoloft and anxiolytics. Sertraline 50 mg a day has been started. (2) NOEMÍ (obstructive sleep apnea): Code(s): G47.33 - Obstructive sleep apnea (adult) (pediatric) Plan: Continue current medications. (3) Hypercholesterolemia: Code(s): E78.00 - Pure hypercholesterolemia, unspecified (4) Diabetes mellitus: Code(s): E11.9 - Type 2 diabetes mellitus without complications Plan: A1c is 6.2. New onset Diabetic. No medications started Orders: Orders AMB Hemoglobin A1c 12/13/23 Z13.9 - Encounter for screening, unspecified Medications: New sertraline (Zoloft) 50 mg PO DAILY 60 tabs 1RF Coding Level of Care Code Est Pt Level 4 (48904) Diagnoses Generalized anxiety disorder F41.1 NOEMÍ (obstructive sleep apnea) G47.33 Hypercholesterolemia E78.00 Diabetes mellitus E11.9
[2023-12-13 14:01] VITALS: BP 120/64; PULSE 67; O2SAT 97; BMI 34.5
== END 2023-12-13 15:04 | disposition home or self-care (01) ==
PROVIDERS: PCP Internal Medicine; Visit Provider Internal Medicine
DX: E11.9 Type 2 diabetes mellitus without complications (principal)
CPT/HCPCS: 83036; 99214

== ENCOUNTER 2023-12-21 11:45 | Outpatient (AMB) | payer OTHER, SELFPAY ==
--- NOTE | 2023-12-21 11:46 | MHC.OFFVIS ---
Intake Intake Visit Reasons: f/u colo Allergies atorvastatin Adverse Reaction (Intermediate, Verified 12/13/23 14:00) cramps HPI f/u colo HPI Details Assessment & Plan (1) Pre-op examination: Code(s): Z01.818 - Encounter for other preprocedural examination Plan: This is his first colonoscopy. HE has occasional GERD that he treats with TUMS and no bowel problems. He has cytology technologist with anesthesia or sedation, he has vasectomy was done with local lidocaine. He has obstructive sleep apnea and denies any cardiac problems. NO ID problems No known FHX of crc or polyps. (2) NOEMÍ (obstructive sleep apnea): Code(s): G47.33 - Obstructive sleep apnea (adult) (pediatric) Orders: Orders Comprehensive Met. Panel Today Z01.818 - Encounte r for other prepro cedural examinatio n Complete Blood Cou nt Auto Diff Today Z01.818 - Encounte r for other prepro cedural examinatio n Colonoscopy - GI U se Only Today Z01.818 - Encounte r for other prepro cedural examinatio n Medications: New peg 3350-electroly philomena 236-22.74-6.74 -5.86 gram (Golyt lisa) until feca l effluent is edu r; do not exceed a total volume of 2 ,000 mL 240 mL PO Q10M 1 day 4,000 mL 0RF Z12.11 - Encounter for screening for malignant neoplas m of colon LABS Laboratory Tests 11/17/23 11/19/23 05:55 05:44 WBC 10.8 Hgb 13.5 L Hct 41.1 L MCV 92.2 MCH 30.3 Plt Count 187 Estimated GFR > 60 Total Bilirubin 0.8 AST 37 ALT 87 H Alkaline Phosphata se 50 COLONOSCOPY 11/19/23 Findings: Terminal Ileum: Not evaluated Cecum: A 4-5 mm diminutive appearing polyp - removed with a cold biopsy Ascending Colon: Normal Transverse Colon: Normal Descending Colon: Normal Sigmoid Colon: A 10-12 mm sessile polyp - removed with a hot snare. Moderate diverticulosis Rectum: Normal Ano-rectum: Moderate internal hemorrhoids Colon preparation: Good after some irrigation Impression and Post Procedure Diagnosis: Colonoscopy Findings: One small and one medium sized polyps removed Moderate diverticulosis seen in the sigmoid colon Moderate hemorrhoids on retroflexed exam. Plan: Await pathology results Patient has an appointment on 12/07/23 in the GI Clinic with Kajal Robert NP . Repeat Colonoscopy interval based on path results - in 3 years if polyp is adenomatous and 10 years if polyps are hyperplastic. Above findings were reviewed with the patient and colon polyps and diverticulosis handouts were given in the discharge area Pt de-saturated during the procedure (likely due to laryngospasm versus aspiration) and an LMA was inserted CXR post procedure showed: The lungs are well-expanded with patchy opacity seen in the lingula and left lower lobe consistent with infiltrates. There is some patchy infiltrate in the left upper lobe parahilar region as well. The right lung is clear. The heart size and pulmonary vascularity is normal. No gross bony abnormality seen. Transfer to [facility] ED was arranged by anesthesia for further management. BIOPSY Received: 11/19/23 Diagnosis A. Colon, cecal polyp: Colonic mucosa with no specific change; no adenomatous dysplasia seen. B. Colon, sigmoid, polyp: Tubular adenoma; negative for high-grade dysplasia and carcinoma TODAY'S VISIT Procedure should be repeated in 3 due to a rather large tubular. The results were explained and the patient is agreeable to the follow-up interval as stated. The bowel pattern has returned to normal. Education was provided to tell any 1st degree relatives about their findings to be sure that they are screened by age 45. Educated that they will be put on a recall list when it is time for their repeat scope but should they move out of state or away from the hospital they will need to remember along with their primary to repeat the procedure in a timely fashion to avoid any adverse complications. He had a bad experience as he developed aspiration pneumonia after the procedure and he was hospitalized for 4 days !! He is fairly well humored about it, but it would be optimal to find out what to do to prevent this in the future. Reading form [facility] shows that treating with promotility agents to possible aspiration. Prevention of aspiration can be achieved by promoting gastric emptying with pharmacological agents or removing gastric contents with nasogastric intubation before commencement of anaesthesia. Nasogastric intubation may also lead to perioperative aspiration [24https://www.ncbi.nlm.nih.gov/pmc/articles/OCJ6816664/#CR24], and whether to leave the nasogastric tube in situ or to remove it prior to commencement of anaesthesia remains a matter of contention [25https://www.ncbi.nlm.nih.gov/pmc/articles/QVU2628066/#CR25]. Preoperative gastric ultrasound to quantify residual gastric content shows promise in potentially offering preoperative identification of those at risk of pulmonary aspiration. In an [place] study, 4.1% of patients who presented for elective procedure had gastric residual volume at a level considered at risk of pulmonary aspiration [26https://www.ncbi.nlm.nih.gov/pmc/articles/TPV3126523/#CR26]. [facility] Medical History (Updated 12/26/23 @ 15:27 by MARIANO Hassan) Diabetes mellitus Generalized anxiety disorder NOEMÍ (obstructive sleep apnea) HLD (hyperlipidemia) Asthma Hypercholesterolemia Vitamin B12 deficiency (dietary) anemia Surgical History History of colonoscopy History of vasectomy Family History Father Heart disease Stroke Mother Heart disease Diabetes Social History Household Members: Significant Other and Children Housing: House Do you presently have visiting nurse or other home services: No Unable to assess alcohol history related to: Unable to respond Alcohol intake: current Alcohol intake frequency: a few times a week Patient Tobacco Use Status: Former Tobacco user Quit Date: 11/08/20 Cigarettes Per Day: 8 e-Cigarette/Vaping Use: Never Used Second Hand Smoke Exposure: No service: No Current occupational status: employed and other Cognitive needs: No Hearing needs: No Vision needs: No Review of Systems Const Denies fatigue, Denies fever(s), Denies night sweats, Denies poor appetite and Denies weight loss ENT Reports Normal hearing present, Denies dental pain, Denies dysphagia, Denies hearing loss, Denies mouth pain, Denies odynophagia, Denies throat swelling, Denies tongue swelling and Reports other (Dentition adequate) Card Reports no additional complaints Resp Reports no additional complaints GI Details: Denies abdominal pain, Denies melena, Denies bloating, Denies hematochezia, Denies constipation, Denies GI cramping, Denies dysphagia, Denies excessive flatus, Denies early satiety, Denies heartburn, Denies diarrhea, Denies nausea, Denies odynophagia, Denies vomiting and Denies hematemesis Skin/Breast Denies pruritus, Denies lesions, Denies rash and Denies jaundice Neuro Reports Normal hearing present and Denies Abnormal speech present Endo Denies fatigue Aller/Immun Denies throat swelling and Denies tongue swelling Physical Exam Const General: cooperative, no acute distress, well developed and well groomed Nutritional Appearance: well nourished and obese Orientation/consciousness: oriented to person, oriented to place and oriented to time Limitations: No language barrier HEENT Head: Yes normocephalic and Yes atraumatic Eyes General: appearance normal, both eyes and all related structures Pupils: Equal, round and reactive pupils present Neck Neck: Yes normal visual inspection and Yes no lymphadenopathy Thyroid: Thyroid normal Resp Effort & Inspection: normal respiratory effort and able to speak in complete sentences Auscultation: clear to auscultation bilaterally Cardio Rate: regular rate Rhythm: regular rhythm Heart sounds: Normal, physiologic split S2 sound present Peripheral pulses: radial pulses present and posterior tibial pulses present GI Inspection: No distended, No Abdominal panniculus present and Yes obesity Palpation (GI): Soft to palpation, nontender, no guarding, not rigid and No hepatosplenomegaly present Percussion: Yes normal to percussion Auscultation: normal bowel sounds Rectal Exam - Male: Yes deferred Skin General skin exam: no rashes or lesions noted, turgor normal, skin not dry, no jaundice, No spider nevi and no striae Rashes: no rashes Nails: normal Neuro General: oriented to person, oriented to place and oriented to time Cranial nerves: Yes Equal, round and reactive pupils present and Yes Normal hearing present Speech: No Abnormal speech present Extrem General: Yes normal to inspection, No clubbing, No cyanosis and No edema Psych Appearance: grossly normal and well kempt Mental Status: mental status grossly normal Speech and movement: Normal speech and movement present Affect: normal affect Attitude: cooperative Thought process: Normal thought process present and not confabulating Thought content: Normal thought content present Insight: Fair insight present (Psych) Judgement: Fair judgement present (Psych) Results Reviewed Results Reviewed: Laboratory Tests 11/17/23 11/19/23 05:55 05:44 WBC 10.8 Hgb 13.5 L Hct 41.1 L MCV 92.2 MCH 30.3 Plt Count 187 Estimated GFR > 60 Total Bilirubin 0.8 AST 37 ALT 87 H Alkaline Phosphatase 50 COLONOSCOPY 11/19/23 Findings: Terminal Ileum: Not evaluated Cecum: A 4-5 mm diminutive appearing polyp - removed with a cold biopsy Ascending Colon: Normal Transverse Colon: Normal Descending Colon: Normal Sigmoid Colon: A 10-12 mm sessile polyp - removed with a hot snare. Moderate diverticulosis Rectum: Normal Ano-rectum: Moderate internal hemorrhoids Colon preparation: Good after some irrigation Impression and Post Procedure Diagnosis: Colonoscopy Findings: One small and one medium sized polyps removed Moderate diverticulosis seen in the sigmoid colon Moderate hemorrhoids on retroflexed exam. Plan: Await pathology results Patient has an appointment on 12/07/23 in the GI Clinic with Kajal Robert NP . Repeat Colonoscopy interval based on path results - in 3 years if polyp is adenomatous and 10 years if polyps are hyperplastic. Above findings were reviewed with the patient and colon polyps and diverticulosis handouts were given in the discharge area Pt de-saturated during the procedure (likely due to laryngospasm versus aspiration) and an LMA was inserted CXR post procedure showed: The lungs are well-expanded with patchy opacity seen in the lingula and left lower lobe consistent with infiltrates. There is some patchy infiltrate in the left upper lobe parahilar region as well. The right lung is clear. The heart size and pulmonary vascularity is normal. No gross bony abnormality seen. Transfer to [facility] was arranged by anesthesia for further management. BIOPSY Received: 11/19/23 Diagnosis A. Colon, cecal polyp: Colonic mucosa with no specific change; no adenomatous dysplasia seen. B. Colon, sigmoid, polyp: Tubular adenoma; negative for high-grade dysplasia and carcinoma Assessment & Plan Assessment & Plan (1) Tubular adenoma of colon: Comment: 2023 scope= TA repeat in 3 years Code(s): D12.6 - Benign neoplasm of colon, unspecified Plan Procedure should be repeated in 3 due to a rather large tubular. The results were explained and the patient is agreeable to the follow-up interval as stated. The bowel pattern has returned to normal. Education was provided to tell any 1st degree relatives about their findings to be sure that they are screened by age 45. Educated that they will be put on a recall list when it is time for their repeat scope but should they move out of state or away from the hospital they will need to remember along with their primary to repeat the procedure in a timely fashion to avoid any adverse complications. He had a bad experience as he developed aspiration pneumonia after the procedure and he was hospitalized for 4 days !! He is fairly well humored about it, but it would be optimal to find out what to do to prevent this in the future. Reading form [facility] shows that treating with promotility agents to possible aspiration. Prevention of aspiration can be achieved by promoting gastric emptying with pharmacological agents or removing gastric contents with nasogastric intubation before commencement of anaesthesia. Nasogastric intubation may also lead to perioperative aspiration [24https://www.ncbi.nlm.nih.gov/pmc/articles/BLR3869379/#CR24], and whether to leave the nasogastric tube in situ or to remove it prior to commencement of anaesthesia remains a matter of contention [25https://www.ncbi.nlm.nih.gov/pmc/articles/LQA4205382/#CR25]. Preoperative gastric ultrasound to quantify residual gastric content shows promise in potentially offering preoperative identification of those at risk of pulmonary aspiration. In an [place] study, 4.1% of patients who presented for elective procedure had gastric residual volume at a level considered at risk of pulmonary aspiration [26https://www.ncbi.nlm.nih.gov/pmc/articles/ZIB7557844/#CR26]. Coding Level of Care Code Est Pt Level 3 (93160) Diagnoses Tubular adenoma of colon D12.6
== END 2023-12-21 12:05 | disposition home or self-care (01) ==
PROVIDERS: PCP Internal Medicine; Visit Provider Nurse Practitioner
DX: D12.6 Benign neoplasm of colon, unspecified (principal)
CPT/HCPCS: 99213

== ENCOUNTER → 2023-12-21 11:45 | Outpatient (BNVA) | payer OTHER, SELFPAY | PROVIDERS: PCP Internal Medicine; Visit Provider Nurse Practitioner ==

== ENCOUNTER 2024-03-20 13:38 | Outpatient (AMB) | payer OTHER, SELFPAY ==
--- NOTE | 2024-03-20 13:45 | A.OFFPC_ITS ---
Vital Signs 03/20/24 13:47 Height 5 ft 5 in Weight 208 lb 2 oz BMI 34.6 BP 122/80 Blood Pressure Location Lt brachial Position Sitting Pulse 73 Pulse Source Pulse Oximeter Pulse Oximetry (%) 98 Oxygen Delivery Method Room Air Intake Visit Reasons: 3mth f/u Intake Note: Patient is here to follow up on DM, NOEMÍ. Complain of congestion since 03/16/24 with cough, yellow phlegms. OTC not helping Firmware Manager Required: No Financial Foundations Representative: Not Required per policy Accompanied by: Self / Same As Patient Allergies atorvastatin Adverse Reaction (Intermediate, Verified 03/20/24 13:46) cramps Tobacco use date assessed: 03/20/24 Dental Screening Dental Screen Date: 12/13/23 HPI 3mth f/u HPI Details 49-year-old male presents to the office to discuss his chronic medical conditions. Patient is compliant with his medications and reporting no side effects. Able to function and do activities of daily living. Continues to work. Symptoms of anxiety well controlled with Zoloft. He is sleeping well and has good interpersonal relationship. Appetite is normal. [facility] Medical History (Updated 12/26/23 @ 15:27 by MARIANO Hassan) Diabetes mellitus Generalized anxiety disorder NOEMÍ (obstructive sleep apnea) HLD (hyperlipidemia) Asthma Hypercholesterolemia Vitamin B12 deficiency (dietary) anemia Surgical History History of colonoscopy History of vasectomy Family History Father Heart disease Stroke Mother Heart disease Diabetes Social History Household Members: Significant Other and Children Housing: House Do you presently have visiting nurse or other home services: No Unable to assess alcohol history related to: Unable to respond Alcohol intake: current Alcohol intake frequency: a few times a week Patient Tobacco Use Status: Former Tobacco user Cigarettes Per Day: 8 e-Cigarette/Vaping Use: Never Used Second Hand Smoke Exposure: No service: No Current occupational status: employed and other Cognitive needs: No Hearing needs: No Vision needs: No Questionnaire Thrive Questionnaire Date Thrive assessed: 11/17/23 MAY-7 AMB Questionnaire MAY-7 Date MAY - 7 assessed: 12/13/23 Source: Developed by Drs. Sincere Leo, Sole Nino, Maury Ravi and colleagues, with an educational mackenzie from [employer]. Physical exam (Primary Care) Vital Signs: Last Vital Signs Pulse 73 03/20/24 13:47 BP 122/80 03/20/24 13:47 Pulse Ox 98 03/20/24 13:47 Oxygen Delivery Method Room Air 03/20/24 13:47 BMI result Body Mass Index 34.6 Tobacco/Smoking Status: Tobacco use Status Tobacco use date assessed 03/20/24 03/20/24 13:58 Patient Tobacco Use Status Former Tobacco user 03/20/24 13:45 e-Cigarette/Vaping Use Never Used 03/20/24 13:45 Thrive Assessment: Date of Thrive Assessment Date Thrive assessed 11/17/23 03/20/24 13:45 Const General: cooperative and healthy appearing Nutritional Appearance: well nourished Orientation/consciousness: patient oriented x3 Limitations: no limitations HENMT Head: Yes normal to inspection Eyes General: appearance normal, both eyes and all related structures Neck Neck: Yes normal visual inspection Chest Chest palpation & inspection: normal palpation of entire chest wall Resp Effort & Inspection: normal respiratory effort Neuro General: patient oriented x3 Results AMB Hemoglobin A1c AMB Hemoglobin A1c 6.0 % Last Edit by MATT Grey on 03/20/24 14:00 Results Reviewed Results Reviewed: Laboratory Last Values Hgb A1c (Clinic) 6.0 % (4.0-6.0) 03/20/24 13:45 Assessment and Plan Assessment & Plan (1) Diabetes mellitus: Code(s): E11.9 - Type 2 diabetes mellitus without complications Plan: A1c is 6.0. Counseling on the importance of diet and exercise done. (2) Anxiety about health: Code(s): F41.8 - Other specified anxiety disorders Plan: Symptoms are well controlled on current dosage of Zoloft. Continue current medications. (3) Hypercholesterolemia: Code(s): E78.00 - Pure hypercholesterolemia, unspecified Plan: LDL is in range. Continue medications at same dosage. Orders: Orders AMB Hemoglobin A1c Today E11.9 - Type 2 diabetes mellitus without complications Coding Level of Care Code Est Pt Level 4 (27610) Complex EM visit Add On G2211 Diagnoses Diabetes mellitus E11.9 Anxiety about health F41.8 Hypercholesterolemia E78.00
[2024-03-20 13:47] VITALS: BP 122/80; PULSE 73; O2SAT 98; BMI 34.6
== END 2024-03-20 14:12 | disposition home or self-care (01) ==
PROVIDERS: PCP Internal Medicine; Visit Provider Internal Medicine
DX: E11.9 Type 2 diabetes mellitus without complications (principal); F41.8 Other specified anxiety disorders; E78.00 Pure hypercholesterolemia, unspecified
CPT/HCPCS: 83036; 99214; G2211

== ENCOUNTER 2024-05-07 07:53 | Outpatient (AMB) | payer BC, SELFPAY ==
[2024-05-07 08:00] VITALS: BP 126/90; PULSE 86; O2SAT 97; BMI 34.8
--- NOTE | 2024-05-07 08:00 | A.OFFPC_ITS ---
Vital Signs 05/07/24 08:00 Height 5 ft 5 in Weight 209 lb 0.6 oz BMI 34.8 BP 126/90 H Blood Pressure Location Lt brachial Position Sitting Pulse 86 Pulse Source Pulse Oximeter Pulse Oximetry (%) 97 Oxygen Delivery Method Room Air Intake Visit Reasons: Annual PE Intake Note: Patient is here today for a physical. 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 Allergies atorvastatin Adverse Reaction (Intermediate, Verified 05/07/24 08:27) cramps Medication List - Last Reconciled 05/07/24 by Cecilio Lewis MD albuterol sulfate 90 mcg/actuation 1 puff inhalation DAILY PRN 30 days pantoprazole 40 mg PO DAILY PRN rosuvastatin 10 mg PO BEDTIME sertraline (Zoloft) 50 mg PO DAILY Tobacco use date assessed: 03/20/24 Dental Screening Dental Screen Date: 12/13/23 Did you have a dental visit in the last 12 months?: Yes Did you have a dental problem in the last 6 months where you did not have access to dental care?: No Was dental information given to patient?: Patient has dentist HPI Annual PE HPI Details 49-year-old male presents to the office for an annual physical. In addition, patient wishes to discuss his shortness of breath. Ever since he had aspiration pneumonia a few months ago, patient reports that his breathing has not completely come back to normal. Walking short distances makes him short of breath. No wheezing or chest pains. Patient was diagnosed with aspiration pneumonia after a screening colonoscopy. Currently taking albuterol. [facility] Medical History Diabetes mellitus Generalized anxiety disorder NOEMÍ (obstructive sleep apnea) HLD (hyperlipidemia) Asthma Hypercholesterolemia Vitamin B12 deficiency (dietary) anemia Surgical History History of colonoscopy History of vasectomy Family History Father Heart disease Stroke Mother Heart disease Diabetes Social History Household Members: Significant Other and Children Housing: House Do you presently have visiting nurse or other home services: No Unable to assess alcohol history related to: Unable to respond Alcohol intake: current Alcohol intake frequency: a few times a week Patient Tobacco Use Status: Former Tobacco user Cigarettes Per Day: 8 e-Cigarette/Vaping Use: Never Used Second Hand Smoke Exposure: No service: No Current occupational status: employed and other Cognitive needs: No Hearing needs: No Vision needs: No Questionnaire PHQ-9 Over the last 2 weeks, how often have you been bothered by any of the following problems? 1. Little interest or pleasure in doing things: not at all 2. Feeling down, depressed, or hopeless: not at all 3. Trouble falling or staying asleep, or sleeping too much: not at all 4. Feeling tired or having little energy: not at all 5. Poor appetite or overeating: not at all 6. Feeling bad about yourself - or that you are a failure or have let yourself or your family down: not at all 7. Trouble concentrating on things, such as reading the newspaper or watching television: not at all 8. Moving or speaking so slowly that other people could have noticed. Or the opposite - being so fidgety or restless that you have been moving around a lot more than usual: not at all 9. Thoughts that you would be better off or of hurting yourself in some way: not at all Total score: 0 Depression Screening Interpretation: Positive Depression Screening Follow-up: Existing condition and In treatment Depression Screening Done: Yes 77594 - PHQ-9 Billing: Yes Source: Developed by Drs. Sincere Leo, Sole Nino, Maury Ravi and colleagues, with an educational mackenzie from [employer]. Thrive Questionnaire Date Thrive assessed: 05/07/24 I am a: Patient What is your living situation today?: I have a steady place to live Within the past 12 months, did the food you bought not last and you didn't have the money to get more?: Never true Within the past 12 months, did you worry whether your food would run out before you got money to buy more?: Never true Do you have trouble paying for medicines?: No Do you have trouble getting transportation to medical appointments?: No Do you have trouble paying your heating and electricity bill?: No Do you have trouble taking care of your child, family member or friend?: No Do you have trouble with day-to-day activities such as bathing, preparing meals, shopping, managing finances, etc.?: No Are you currently unemployed and looking for a job?: No Are you interested in more education?: No Please select the resources that you would like help with: None Currently or been in a relationship where the following occur: No concerns reported THRIVE Score: 0 AUDIT C Alcohol Use Questionnaire (AUDIT-C) 1. How often do you have a drink containing alcohol?: Monthly or less 2. How many drinks containing alcohol do you have on a typical day when you are drinking?: 1 or 2 3. How often do you have six or more drinks on one occasion?: Never Total Score: 1 MAY-7 AMB Questionnaire MAY-7 Date MAY - 7 assessed: 05/07/24 Feeling nervous, anxious, or on edge: 0 = Not at all Not being able to stop or control worryin = Not at all Worrying too much about different things: 0 = Not at all Trouble relaxin = Not at all Being so restless that it is hard to sit still: 0 = Not at all Becoming easily annoyed or irritable: 0 = Not at all Feeling afraid as if something awful might happen: 0 = Not at all Total MAY-7 score (0-4 normal; 5-9 mild; 10-14 moderate; 15-21 severe): 0 Source: Developed by Drs. Sincere Leo, Sole Nino, Maury Ravi and colleagues, with an educational mackenzie from [employer]. MAY-7 Assessment Billing MAY-7 Assessment Tool: MAY-7 Assessment 58280 Physical exam (Primary Care) Vital Signs: Last Vital Signs Pulse 86 05/07/24 08:00 BP 126/90 H 05/07/24 08:00 Pulse Ox 97 05/07/24 08:00 Oxygen Delivery Method Room Air 05/07/24 08:00 Care Plan Goal for BP management: Blood pressure is in range. BMI result Body Mass Index 34.8 BMI Assessment/Plan discussion: High (1 lb per week weight loss suggested.) BMI High, discussed plan: lifestyle, weight reduction and dietary Tobacco/Smoking Status: Tobacco use Status Tobacco use date assessed 03/20/24 05/07/24 08:03 Patient Tobacco Use Status Former Tobacco user 05/07/24 08:03 e-Cigarette/Vaping Use Never Used 05/07/24 08:03 PHQ-9: PHQ-9 Score PHQ-9: Total score 0 05/07/24 08:07 Depression Screening Interpretation: Positive Depression Screening Follow-up: Existing condition and In treatment Thrive Assessment: Date of Thrive Assessment Date Thrive assessed 05/07/24 05/07/24 08:07 Currently or been in a relationship where the following occur: No concerns reported Const General: cooperative and healthy appearing Nutritional Appearance: well nourished Orientation/consciousness: patient oriented x3 Limitations: no limitations HENMT Head: Yes normal to inspection Eyes General: appearance normal, both eyes and all related structures Neck Neck: Yes normal visual inspection Chest Chest palpation & inspection: normal palpation of entire chest wall Resp Effort & Inspection: normal respiratory effort Neuro General: patient oriented x3 Assessment and Plan Assessment & Plan (1) Diabetes mellitus: Code(s): E11.9 - Type 2 diabetes mellitus without complications Plan: A1c is in range. Continue medications at same dosage. (2) Annual physical exam: Code(s): Z00.00 - Encounter for general adult medical examination without abnormal findings Plan: Up-to-date on a screening colonoscopy. Blood work has been reviewed. (3) Shortness of breath: Code(s): R06.02 - Shortness of breath Plan: Patient compliant with his CPAP. A pulmonary consult has been requested. Orders: Orders Complete Blood Count no Diff Today E11.9 - Type 2 diabetes mellitus without complications, Z00.00 - Encounter for general adult medical examination without abnormal findings Lipid Panel Today E11.9 - Type 2 diabetes mellitus without complications, Z00.00 - Encounter for general adult medical examination without abnormal findings Liver Panel Today E11.9 - Type 2 diabetes mellitus without complications, Z00.00 - Encounter for general adult medical examination without abnormal findings UA and rflx microscopic Today E11.9 - Type 2 diabetes mellitus without complications, Z00.00 - Encounter for general adult medical examination without abnormal findings Basic Metabolic Panel Today E11.9 - Type 2 diabetes mellitus without complications, Z00.00 - Encounter for general adult medical examination without abnormal findings Thyroid Stimulating Hormone Today E11.9 - Type 2 diabetes mellitus without complications, Z00.00 - Encounter for general adult medical examination without abnormal findings Referrals Pulmonology Referral R06.02 - Shortness of breath Coding Level of Care Code Est Pt Level 4 (45898) Complex EM visit Add On G2211 Diagnoses Diabetes mellitus E11.9 Annual physical exam Z00.00 Shortness of breath R06.02 Additional Codes MAY-7 Assessment Billing - MAY-7 Assessment Tool: MAY-7 Assessment [id number] ( [id number])
== END 2024-05-07 08:29 | disposition home or self-care (01) ==
PROVIDERS: PCP Internal Medicine; Visit Provider Internal Medicine
DX: E11.9 Type 2 diabetes mellitus without complications (principal); R06.02 Shortness of breath
CPT/HCPCS: 99214

== ENCOUNTER 2024-07-25 09:45 | Outpatient (REF) | payer BC, SELFPAY ==
[2024-07-25 10:53] LABS: Hematocrit 47.7 % (42.0-52.0); Hemoglobin 15.9 g/dl (14.0-18.0); Mean Corpuscular HGB Conc 33.3 g/dl (31.0-36.0); Mean Corpuscular Hemoglobin 30.7 pg (27.0-33.0); Mean Corpuscular Volume 92.1 fL (80.0-98.0); Mean Platelet Volume 8.9 fL (9.4-12.4); Platelet Count 207 X10*3/uL (160-400); Red Blood Count 5.18 X10*6/uL (4.60-5.80); Red Cell Distribution Width 12.3 % (11.0-16.0); White Blood Count 7.2 X10*3/uL (4.8-10.8)
[2024-07-25 10:58] LABS: Appearance Urine Clear; Color Urine Yellow; Glucose Urine UA Negative (Negative); Leukocyte Esterase Urine Negative (Negative); Nitrite Urine Negative (Negative); PH 5.5 (5.0-9.0); Specific Gravity - Urine 1.025 (1.005-1.025); Urine Blood Negative (Negative); Urine Ketones Trace mg/dL (Negative); Urine Protein Negative (Neg-Trace)
[2024-07-25 11:39] LABS: Alanine Aminotransferase 202 U/L (0-40); Albumin Level 4.7 g/dL (3.5-5.0); Alkaline Phosphatase 73 U/L (39-117); Anion Gap 13 (12-20); Aspartate Amino Transferase 95 U/L (5-37); Bilirubin Direct 0.2 mg/dL (0.0-0.5); Bilirubin Total 0.6 mg/dL (0.0-1.0); Blood Urea Nitrogen 15 mg/dL (9-16); Calcium 9.6 mg/dL (8.4-10.2); Carbon Dioxide 28 mmol/L (22-29); Chloride 103 mmol/L (96-108); Cholesterol 208 mg/dL (<200); Estimated Glomerular Filt Rate > 60; Glucose Random 111 mg/dL (60-115); HDL Cholesterol 36 mg/dL (>40); LDL Cholesterol Calculated 136 mg/dL (<100); Potassium 4.7 mmol/L (3.3-5.1); Sodium 139 mmol/L (135-145); Thyroid Stimulating Hormone 0.89 uIU/mL (0.32-4.0); Total Protein 7.8 g/dL (6.5-8.0); Triglycerides 181 mg/dL (<150)
== END 2024-07-25 09:46 | disposition home or self-care (01) ==
LOC: HO.LAB 09:45
PROVIDERS: PCP Internal Medicine; Visit Provider Internal Medicine
DX: Z00.00 Encounter for general adult medical examination without abnormal findings (principal); E11.9 Type 2 diabetes mellitus without complications
CPT/HCPCS: 36415; 80048; 80061; 80076; 81003; 84443; 85027

== ENCOUNTER 2024-08-11 08:26 | Outpatient (AMB) | payer BC, SELFPAY ==
--- NOTE | 2024-08-11 08:44 | MHC.PC.OV ---
Vital Signs 08/11/24 08:45 Height 5 ft 5 in Weight 212 lb BMI 35.3 BP 132/66 Blood Pressure Location Lt brachial Position Sitting Pulse 71 Pulse Source Pulse Oximeter Pulse Oximetry (%) 97 Oxygen Delivery Method Room Air Intake Visit Reasons: Elevated Liver Enzymes Intake Note: Patient is here to follow up on elevated liver enzymes. Pt decline flu shot today. Manager Behavior Required: No Soil Expert: Not Required per policy Accompanied by: Self / Same As Patient Allergies atorvastatin Adverse Reaction (Intermediate, Verified 08/11/24 08:45) cramps Tobacco use date assessed: 08/11/24 Dental Screening Dental Screen Date: 12/13/23 HPI Elevated Liver Enzymes HPI Details 49-year-old male presents to the office for a follow-up visit. Routine blood work done recently shows that his liver function test is worsening. The ALT has jumped from 110-202 in the AST has jumped from 37-95. Patient reports no symptoms. He does admit drinking 8-10 beers a week and some hard liquor. Able to function and do all activities of daily living. [facility] Medical History (Updated 08/11/24 @ 09:34 by Cecilio Lewis MD) Transaminitis Diabetes mellitus Generalized anxiety disorder NOEMÍ (obstructive sleep apnea) HLD (hyperlipidemia) Asthma Hypercholesterolemia Vitamin B12 deficiency (dietary) anemia Surgical History (Updated 08/11/24 @ 09:44 by Cecilio Lewis MD) History of colonoscopy (~11/16/23) History of vasectomy Family History Father Heart disease Stroke Mother Heart disease Diabetes Social History Household Members: Significant Other and Children Housing: House Do you presently have visiting nurse or other home services: No Unable to assess alcohol history related to: Unable to respond Alcohol intake: current Alcohol intake frequency: a few times a week Patient Tobacco Use Status: Former Tobacco user Cigarettes Per Day: 8 e-Cigarette/Vaping Use: Never Used Second Hand Smoke Exposure: No service: No Current occupational status: employed and other Cognitive needs: No Hearing needs: No Vision needs: No Questionnaire Thrive Questionnaire Date Thrive assessed: 05/07/24 MAY-7 AMB Questionnaire MAY-7 Date MAY - 7 assessed: 05/07/24 Source: Developed by Drs. Sincere Leo, Sole Nino, Maury Ravi and colleagues, with an educational mackenzie from [employer]. Physical exam (Primary Care) Vital Signs: Last Vital Signs Pulse 71 08/11/24 08:45 BP 132/66 08/11/24 08:45 Pulse Ox 97 08/11/24 08:45 Oxygen Delivery Method Room Air 08/11/24 08:45 BMI result Body Mass Index 35.3 Tobacco/Smoking Status: Tobacco use Status Tobacco use date assessed 08/11/24 08/11/24 08:48 Patient Tobacco Use Status Former Tobacco user 08/11/24 08:48 e-Cigarette/Vaping Use Never Used 08/11/24 08:48 Thrive Assessment: Date of Thrive Assessment Date Thrive assessed 05/07/24 08/11/24 08:48 Const General: cooperative and healthy appearing Nutritional Appearance: well nourished Orientation/consciousness: patient oriented x3 Limitations: no limitations HENMT Head: Yes normal to inspection Eyes General: appearance normal, both eyes and all related structures Neck Neck: Yes normal visual inspection Chest Chest palpation & inspection: normal palpation of entire chest wall Resp Effort & Inspection: normal respiratory effort Neuro General: patient oriented x3 Coding Level of Care Code Est Pt Level 4 (86149) Complex EM visit Add On G2211 Diagnoses Transaminitis R74.01 Assessment & Plan Assessment & Plan (1) Transaminitis: Code(s): R74.01 - Elevation of levels of liver transaminase levels Category: Medical Plan: Blood work for hepatitis screen has been ordered. Patient had an ultrasound done in 10/27/2021 which suggested fatty liver. A CT scan of the abdomen and pelvis done in November of 2023 was unremarkable. Patient may benefit from a liver biopsy and a GI consult has been requested. Orders: Orders Hepatitis A,B,C Profile Today R74.01 - Elevation of levels of liver transaminase levels Referrals Gastroenterology Referral R74.01 - Elevation of levels of liver transaminase levels
[2024-08-11 08:45] VITALS: BP 132/66; PULSE 71; O2SAT 97; BMI 35.3
== END 2024-08-11 11:03 | disposition home or self-care (01) ==
LOC: HO.HMCH 08:27
PROVIDERS: PCP Internal Medicine; Visit Provider Internal Medicine
DX: R74.01 Elevation of levels of liver transaminase levels (principal)

== ENCOUNTER → 2024-08-11 08:26 | Outpatient (BNVA) | payer BC, SELFPAY | PROVIDERS: PCP Internal Medicine; Visit Provider Internal Medicine ==

== ENCOUNTER 2024-09-25 13:24 | Outpatient (AMB) | payer BC, SELFPAY ==
--- NOTE | 2024-09-25 13:31 | MHC.PC.OV ---
Vital Signs 09/25/24 13:34 Height 5 ft 5 in Weight 211 lb 2 oz BMI 35.1 BP 120/64 Blood Pressure Location Lt brachial Position Sitting Pulse 93 Pulse Source Pulse Oximeter Pulse Oximetry (%) 96 Oxygen Delivery Method Room Air Intake Visit Reasons: 6mth f/u Intake Note: Patient is here to follow up on DM, NOEMÍ, Hypercholesterolemia. [employer] Information Clerk Required: No Legal Paraprofessional: Not Required per policy Accompanied by: Self / Same As Patient Allergies atorvastatin Adverse Reaction (Intermediate, Verified 09/25/24 13:54) cramps Medication List - Last Reconciled 09/25/24 by Cecilio Lewis MD albuterol sulfate 90 mcg/actuation 1 puff inhalation DAILY PRN 30 days azithromycin take 500 mg today (day 1), then 250 mg for 4 days (days 2-5) PO pantoprazole 40 mg PO DAILY PRN rosuvastatin 10 mg PO BEDTIME sertraline (Zoloft) 50 mg PO DAILY Tobacco use date assessed: 09/25/24 Dental Screening Dental Screen Date: 12/13/23 [facility] Medical History (Updated 08/11/24 @ 09:34 by Cecilio Lewis MD) Transaminitis Diabetes mellitus Generalized anxiety disorder NOEMÍ (obstructive sleep apnea) HLD (hyperlipidemia) Asthma Hypercholesterolemia Vitamin B12 deficiency (dietary) anemia Surgical History History of colonoscopy (~11/16/23) History of vasectomy Family History Father Heart disease Stroke Mother Heart disease Diabetes Social History Household Members: Significant Other and Children Housing: House Do you presently have visiting nurse or other home services: No Unable to assess alcohol history related to: Unable to respond Alcohol intake: current Alcohol intake frequency: a few times a week Patient Tobacco Use Status: Former Tobacco user Cigarettes Per Day: 8 e-Cigarette/Vaping Use: Never Used Second Hand Smoke Exposure: Yes service: No Current occupational status: employed and other Cognitive needs: No Hearing needs: No Vision needs: No Questionnaire Thrive Questionnaire Date Thrive assessed: 05/07/24 MAY-7 AMB Questionnaire MAY-7 Date MAY - 7 assessed: 05/07/24 Source: Developed by Drs. Sincere Leo, Sole Nino, Maury Ravi and colleagues, with an educational mackenzie from [employer]. Physical exam (Primary Care) Vital Signs: Last Vital Signs Pulse 93 09/25/24 13:34 BP 120/64 09/25/24 13:34 Pulse Ox 96 09/25/24 13:34 Oxygen Delivery Method Room Air 09/25/24 13:34 BMI result Body Mass Index 35.1 Tobacco/Smoking Status: Tobacco use Status Tobacco use date assessed 09/25/24 09/25/24 13:41 Patient Tobacco Use Status Former Tobacco user 09/25/24 13:32 e-Cigarette/Vaping Use Never Used 09/25/24 13:32 Thrive Assessment: Date of Thrive Assessment Date Thrive assessed 05/07/24 09/25/24 13:32 Results AMB Hemoglobin A1c AMB Hemoglobin A1c 6.1 % Last Edit by MATT Grey on 09/25/24 13:45 Results Reviewed Results Reviewed: Laboratory Last Values Hgb A1c (Clinic) 6.1 % (4.0-6.0) H 09/25/24 13:32 Coding Level of Care Code Est Pt Level 4 (77938) Complex EM visit Add On G2211 Diagnoses Anxiety about health F41.8 Hypercholesterolemia E78.00 Transaminitis R74.01 Upper respiratory tract infection J06.9 Assessment & Plan Assessment & Plan (1) Anxiety about health: Code(s): F41.8 - Other specified anxiety disorders Category: Medical Plan: Continue Sertraline at same dosage. Prescription sent. (2) Hypercholesterolemia: Code(s): E78.00 - Pure hypercholesterolemia, unspecified Category: Medical Plan: Continue Rosuvastatin at same dosage. (3) Transaminitis: Code(s): R74.01 - Elevation of levels of liver transaminase levels Category: Medical Plan: Patient has a scheduled GI appt in October. (4) Upper respiratory tract infection: Code(s): J06.9 - Acute upper respiratory infection, unspecified Plan: Antibiotics ordered. Increase fluid intake. Tylenol for aches and pains. If symptoms worsen, follow-up here for a recheck. Plan . History of Present Illness The patient is a 49-year-old male presenting with acute respiratory symptoms. He reports feeling ill during a recent 11-day trip to [place], beginning approximately 10 days ago when his infant contracted RSV. He experienced fatigue, yellow nasal discharge, and a productive cough, which he perceives as sinus-related. Initially, his symptoms included clear nasal discharge that turned colored after four to five days. He continues to expel sputum in the mornings. In his past medical history, the patient had a colonoscopy that revealed two small polyps, warranting follow-up in three years instead of the conventional five. Fatty liver was discovered through ultrasound, and blood work is planned for further assessment. Depression is managed with sertraline. The patient also mentioned weight gain of 20 pounds over the past year and a half. Social History - Recent travel to [place] with family - Lives with family, including a baby - Part-time employment with unspecified hours off - Diet high in carbohydrates and red meat - Intent to modify diet to reduce carbohydrate and red meat intake Review of Systems - Respiratory: Reports yellow nasal discharge and productive cough - General: Reports fatigue - Mental Health: Denies improvement in mood despite medication Physical Exam General: Appearance normal, both eyes and all related structures Nutritional Appearance: Well nourished Orientation/consciousness: Patient oriented x3 Limitations: No limitations Head: Normal to inspection Neck: Normal visual inspection Chest: Normal palpation of entire chest wall Respiratory: Infection present, coughing up yellow and green mucus Neurology: Patient oriented x3 Results - Labs: Pending blood work for hepatitis profile - Imaging: Past ultrasound indicating fatty liver - Procedures: Recent colonoscopy revealing two small polyps Plan - Prescribe antibiotics for acute respiratory tract infection. - Continue sertraline for depression; refill prescription. - Advise getting the hepatitis profile blood work without fasting. - Encourage follow-up with the GI group for further liver assessment, potentially including a biopsy. - Recommend dietary changes, focusing on reducing carbohydrates and red meats to manage weight and hyperlipidemia. - Schedule the next general follow-up in three months. Patient was informed and verbally consented to the use of an ambient scribe for clinic note documentation during this visit. Discussion Notes I discussed with the patient the current respiratory infection and emphasized the importance of completing the antibiotic course. We addressed the liver condition, including the need for hepatitis profiling and possible biopsy evaluation in collaboration with the GI group. I provided guidance on gradual and sustainable dietary modifications to aid in weight management and reduce cardiovascular risk. I reinforced the importance of adhering to the prescribed sertraline dosage for depression and arranged for necessary medication refills. We concluded with a plan for follow-up in three months to reassess all health concerns and dietary changes. Patient Instructions - Complete the prescribed antibiotic course for the respiratory infection. - Follow through with blood work for the hepatitis profile. - Maintain current dose of sertraline and garbage pick up man prescribed refills. - Gradually reduce carbohydrate and red meat intake. - Schedule and attend follow-up appointments with the GI group. - Return in three months for a follow-up consultation. Orders: Orders AMB Hemoglobin A1c Today E11.9 - Type 2 diabetes mellitus without complications Medications: New azithromycin take 500 mg today (day 1), then 250 mg for 4 days (days 2-5) PO 6 tabs 0RF Refilled sertraline (Zoloft) 50 mg PO DAILY 90 tabs 1RF
[2024-09-25 13:34] VITALS: BP 120/64; PULSE 93; O2SAT 96; BMI 35.1
== END 2024-09-25 13:52 | disposition home or self-care (01) ==
PROVIDERS: PCP Internal Medicine; Visit Provider Internal Medicine
DX: F41.8 Other specified anxiety disorders (principal); E78.00 Pure hypercholesterolemia, unspecified; R74.01 Elevation of levels of liver transaminase levels; J06.9 Acute upper respiratory infection, unspecified; E11.9 Type 2 diabetes mellitus without complications

== ENCOUNTER → 2024-09-25 13:24 | Outpatient (BNVA) | payer BC, SELFPAY | PROVIDERS: PCP Internal Medicine; Visit Provider Internal Medicine | DX: F41.8 Other specified anxiety disorders (principal); E78.00 Pure hypercholesterolemia, unspecified; R74.01 Elevation of levels of liver transaminase levels; J06.9 Acute upper respiratory infection, unspecified; E11.9 Type 2 diabetes mellitus without complications; Z79.899 Other long term (current) drug therapy | CPT/HCPCS: 83036 ==

== ENCOUNTER 2024-11-21 11:06 | Outpatient (AMB) | payer BC, SELFPAY ==
[2024-11-21 11:15] VITALS: BP 142/86; PULSE 80; O2SAT 96; BMI 35.2
--- NOTE | 2024-11-21 11:15 | MHC.PC.OV ---
Vital Signs 11/21/24 11:15 Height 5 ft 5 in Weight 211 lb 8 oz BMI 35.2 BP 142/86 H Blood Pressure Location Lt brachial Position Sitting Pulse 80 Pulse Source Pulse Oximeter Pulse Oximetry (%) 96 Oxygen Delivery Method Room Air Intake Visit Reasons: 6 month follow up Allergies atorvastatin Adverse Reaction (Intermediate, Verified 11/21/24 13:57) cramps Medication List - Last Reconciled 11/21/24 by Yessica Drummond PA-C albuterol sulfate 90 mcg/actuation 1 puff inhalation DAILY PRN 30 days pantoprazole 40 mg PO DAILY PRN sertraline (Zoloft) 50 mg PO DAILY simvastatin 10 mg PO BEDTIME Tobacco use date assessed: 11/21/24 Dental Screening Dental Screen Date: 11/21/24 Did you have a dental visit in the last 12 months?: Yes Did you have a dental problem in the last 6 months where you did not have access to dental care?: No Was dental information given to patient?: Patient has dentist [facility] Medical History (Updated 11/21/24 @ 14:03 by Yessica Drummond PA-C) Follow-up exam, 3-6 months since previous exam Loud snoring Transaminitis Diabetes mellitus Generalized anxiety disorder NOEMÍ (obstructive sleep apnea) HLD (hyperlipidemia) Asthma Hypercholesterolemia Vitamin B12 deficiency (dietary) anemia Surgical History History of colonoscopy (~11/16/23) History of vasectomy Family History Father Heart disease Stroke Mother Heart disease Diabetes Social History Household Members: Significant Other and Children Housing: House Do you presently have visiting nurse or other home services: No Unable to assess alcohol history related to: Unable to respond Alcohol intake: current Alcohol intake frequency: a few times a week Patient Tobacco Use Status: Former Tobacco user Cigarettes Per Day: 8 e-Cigarette/Vaping Use: Never Used Second Hand Smoke Exposure: Yes service: No Current occupational status: employed and other Cognitive needs: No Hearing needs: No Vision needs: No Questionnaire PHQ-9 Over the last 2 weeks, how often have you been bothered by any of the following problems? 1. Little interest or pleasure in doing things: not at all 2. Feeling down, depressed, or hopeless: not at all 3. Trouble falling or staying asleep, or sleeping too much: not at all 4. Feeling tired or having little energy: not at all 5. Poor appetite or overeating: not at all 6. Feeling bad about yourself - or that you are a failure or have let yourself or your family down: not at all 7. Trouble concentrating on things, such as reading the newspaper or watching television: not at all 8. Moving or speaking so slowly that other people could have noticed. Or the opposite - being so fidgety or restless that you have been moving around a lot more than usual: not at all 9. Thoughts that you would be better off or of hurting yourself in some way: not at all Total score: 0 Depression Screening Interpretation: Negative Depression Screening Done: Yes 93246 - PHQ-9 Billing: Yes Source: Developed by Drs. Sincere Leo, Sole Nino, Maury Ravi and colleagues, with an educational mackenzie from [employer]. Thrive Questionnaire Date Thrive assessed: 11/21/24 I am a: Patient What is your living situation today?: I have a steady place to live Within the past 12 months, did the food you bought not last and you didn't have the money to get more?: Never true Within the past 12 months, did you worry whether your food would run out before you got money to buy more?: Never true Do you have trouble paying for medicines?: No Do you have trouble getting transportation to medical appointments?: No Do you have trouble paying your heating and electricity bill?: No Do you have trouble taking care of your child, family member or friend?: No Do you have trouble with day-to-day activities such as bathing, preparing meals, shopping, managing finances, etc.?: No Are you currently unemployed and looking for a job?: No Are you interested in more education?: No Please select the resources that you would like help with: None Currently or been in a relationship where the following occur: No concerns reported THRIVE Score: 0 AUDIT C Alcohol Use Questionnaire (AUDIT-C) 1. How often do you have a drink containing alcohol?: Monthly or less 2. How many drinks containing alcohol do you have on a typical day when you are drinking?: 1 or 2 3. How often do you have six or more drinks on one occasion?: Never Total Score: 1 Score Reviewed/Action Taken: Yes MAY-7 AMB Questionnaire MAY-7 Date MAY - 7 assessed: 11/21/24 Feeling nervous, anxious, or on edge: 0 = Not at all Not being able to stop or control worryin = Not at all Worrying too much about different things: 0 = Not at all Trouble relaxin = Not at all Being so restless that it is hard to sit still: 0 = Not at all Becoming easily annoyed or irritable: 0 = Not at all Feeling afraid as if something awful might happen: 0 = Not at all Total MAY-7 score (0-4 normal; 5-9 mild; 10-14 moderate; 15-21 severe): 0 Source: Developed by Drs. Sincere Leo, Sole Nino, Maury Ravi and colleagues, with an educational mackenzie from [employer]. MAY-7 Assessment Billing MAY-7 Assessment Tool: MAY-7 Assessment 83574 Physical exam (Primary Care) Vital Signs: Last Vital Signs Pulse 80 11/21/24 11:15 BP 142/86 H 11/21/24 11:15 Pulse Ox 96 11/21/24 11:15 Oxygen Delivery Method Room Air 11/21/24 11:15 Care Plan Goal for BP management: <130/80 patient reports that his blood pressure is usually normal. He wants to keep a diarrhea home and return at his next visit and does not want to be started on any blood pressure medication due to only one episode of high blood pressure in the office. BMI result Body Mass Index 35.2 BMI Assessment/Plan discussion: High BMI High, discussed plan: lifestyle, weight reduction, dietary, physical activity and alcohol moderation Tobacco/Smoking Status: Tobacco use Status Tobacco use date assessed 11/21/24 11/21/24 11:18 Patient Tobacco Use Status Former Tobacco user 11/21/24 11:18 e-Cigarette/Vaping Use Never Used 11/21/24 11:18 PHQ-9: PHQ-9 Score PHQ-9: Total score 0 11/21/24 11:36 Depression Screening Interpretation: Negative Thrive Assessment: Date of Thrive Assessment Date Thrive assessed 11/21/24 11/21/24 11:18 Currently or been in a relationship where the following occur: No concerns reported Coding Level of Care Code Est Pt Level 4 (44949) Complex EM visit Add On G2211 Diagnoses Follow-up exam, 3-6 months since previous exam Z09 Obesity (BMI 30-39.9) E66.9 Transaminitis R74.01 Tubular adenoma of colon D12.6 Diabetes mellitus E11.9 NOEMÍ (obstructive sleep apnea) G47.33 Generalized anxiety disorder F41.1 Hypercholesterolemia E78.00 Vitamin B12 deficiency (dietary) anemia D51.8 Smoker F17.200 Additional Codes MAY-7 Assessment Billing - MAY-7 Assessment Tool: MAY-7 Assessment 29138 ([id number]) PHQ-9 - 58187 - PHQ-9 Billing: Yes ([id number]) Assessment & Plan Assessment & Plan (1) Follow-up exam, 3-6 months since previous exam: Code(s): Z09 - Encounter for follow-up examination after completed treatment for conditions other than malignant neoplasm Category: Medical (2) Obesity (BMI 30-39.9): Code(s): E66.9 - Obesity, unspecified Category: Medical Plan: Condition is chronic stable continue to monitor. (3) Transaminitis: Code(s): R74.01 - Elevation of levels of liver transaminase levels Category: Medical Plan: Patient to follow back up with GI for biopsy of liver. Condition is chronic and stable continue to monitor. (4) Tubular adenoma of colon: Comment: 2023 scope= TA repeat in 3 years Code(s): D12.6 - Benign neoplasm of colon, unspecified Category: Medical Plan: Patient to follow-up with GI. Condition is chronic and stable continue to monitor. (5) Diabetes mellitus: Code(s): E11.9 - Type 2 diabetes mellitus without complications Category: Medical Plan: Patient's A1c level today is 6.1. He is hesitant about being started on metformin. I explained to him if he can improve his diet and have this repeated in 3-6 months and if it improves then we do not need to start him on medications. Although if it continues to be elevated patient will need to be started on medication for type 2 diabetes. Condition is chronic and stable will continue to monitor. (6) NOEMÍ (obstructive sleep apnea): Code(s): G47.33 - Obstructive sleep apnea (adult) (pediatric) Category: Medical Plan: Condition is chronic and stable will continue to monitor. (7) Generalized anxiety disorder: Code(s): F41.1 - Generalized anxiety disorder Category: Medical Plan: Patient currently on Zoloft 50 mg daily. Condition is chronic and stable continue to monitor. (8) Hypercholesterolemia: Code(s): E78.00 - Pure hypercholesterolemia, unspecified Category: Medical Plan: Due to severe muscle aches while being on a towards the end patient has discontinued this medication. Although patient has triglycerides is 181, total cholesterol 208, LDL 136 and HDL 64 it would benefit for patient to be on a statin. Will switch to simvastatin and patient to monitor her symptoms. Condition is chronic and stable will continue to monitor. (9) Vitamin B12 deficiency (dietary) anemia: Code(s): D51.8 - Other vitamin B12 deficiency anemias Category: Medical Plan: Condition is chronic and stable will continue to monitor. (10) Smoker: Code(s): F17.200 - Nicotine dependence, unspecified, uncomplicated Category: Social Hx Plan: Condition is chronic and stable will continue to monitor. Plan Plan - Initiate trial of simvastatin for hyperlipidemia in place of atorvastatin to address musculoskeletal pain. - Arrange for follow-up hepatic function tests and reassess the necessity for hepatology consultation regarding the postponed biopsy of fatty liver disease. - Recommend blood work including HbA1c, liver function tests, lipid profile, CPK, ESR/CRP, and thyroid function tests. - Monitor blood pressure at home; encourage the patient to maintain a diary for future evaluation. - Consider initiating metformin pending follow-up blood work and further discussion on prediabetes. - Encourage continued abstinence from smoking to improve respiratory health. Orders: Orders Complete Blood Count Auto Diff Today Z00.00 - Encounter for general adult medical examination without abnormal findings Creatine Kinase Total Today Z00.00 - Encounter for general adult medical examination without abnormal findings Lipid Panel Today Z00.00 - Encounter for general adult medical examination without abnormal findings Liver Panel Today Z00.00 - Encounter for general adult medical examination without abnormal findings Vitamin B1 Today Z00.00 - Encounter for general adult medical examination without abnormal findings Hemoglobin A1c Today Z00.00 - Encounter for general adult medical examination without abnormal findings Comprehensive Foley. Panel Fast Today Z00.00 - Encounter for general adult medical examination without abnormal findings C Reactive Protein Today Z00.00 - Encounter for general adult medical examination without abnormal findings Magnesium Today Z00.00 - Encounter for general adult medical examination without abnormal findings Microalbumin, Random (w Creat) Today E11.9 - Type 2 diabetes mellitus without complications TSH reflex Free T4 Today Z00.00 - Encounter for general adult medical examination without abnormal findings Vitamin B12 and Folate Today Z00.00 - Encounter for general adult medical examination without abnormal findings Vitamin D 25-OH Total Today Z00.00 - Encounter for general adult medical examination without abnormal findings PSA,Total (Free>4and<10) Today Z00.00 - Encounter for general adult medical examination without abnormal findings Medications: New simvastatin 10 mg PO BEDTIME 90 tabs 1RF Refilled pantoprazole 40 mg PO DAILY PRN 90 tabs 1RF Acid Reflux Discontinued rosuvastatin Discontinued Reason: Duplicate 10 mg PO BEDTIME 90 tabs 0RF Patient Instructions: Patient Instructions - Start simvastatin as prescribed and discontinue atorvastatin. - Keep a detailed blood pressure diary for the next three months. - Schedule and complete recommended blood work within the next month. - Maintain cessation of tobacco use and continue with healthy dietary choices. - Follow up in three months post-blood work results to review health status and medication efficacy. - Seek medical attention if symptoms of blurred vision or significant musculoskeletal pain persist or worsen. Scribe Plan - Not visible on output: History of Present Illness The patient is a 49-year-old male presenting for a 6 months follow up with concerns related to his chronic medical conditions which include hyperlipidemia and anxiety disorder, managed currently with atorvastatin and sertraline respectively. The patient reports generalized musculoskeletal pain, described as tightness, potentially linked to the use of atorvastatin. These symptoms occur occasionally, without significant exacerbating factors identified. A trial switch to simvastatin for hyperlipidemia management is being considered due to these musculoskeletal complaints. The patient also expresses concerns over intermittent blurry vision, despite a normal ophthalmological examination, potentially implicating medication side effects. The patient was previously scheduled for a hepatic biopsy due to a diagnosis of fatty liver disease; however, this procedure was postponed due to unspecified reasons. Blood tests from late 2023 indicated elevated cholesterol levels (Total Cholesterol 208, Triglycerides 181, LDL 136) necessitating ongoing management. Moreover, there is a new identification of prediabetes with an HbA1c of 6.1, requiring monitoring and potentially the initiation of metformin pending further evaluation and laboratory assessments. Patient at this time did not want to be started on metformin and would like to improve his diet and exercise regimen. He would like his A1c reassess in 6 months. At this time if his A1c continues to be elevated he will start medication for diabetes. He is currently prediabetic. His blood pressure readings have been variably elevated, although patient reports the last time he was in the hospital his blood pressure was normal and this is one episode therefore he would like to keep a diary at home before he is started on any antihypertensive medication. There are no issues related to driving or daily functional activities noted. Social History - Employment: Works for the [employer] - Smoking History: Former smoker, has ceased use for three months. - Weight: Reports a weight gain of 20 pounds over one year. - Exercise and Diet: Engages in healthier eating habits but notes difficulty in maintaining weight loss. Review of Systems - Cardiovascular: Reports intermittent heart palpitations and shortness of breath on exertion. - Respiratory: Denies persistent cough, wheezing, or hemoptysis. - Gastrointestinal: Reports heartburn. - Genitourinary: Denies dysuria or frequency. - Neurological: Denies headaches, seizures, or focal neurological deficits. Physical Exam Appearance: Alert. Oriented X3. No acute distress. Head: Normal external exam. Normocephalic. Atraumatic. Eyes: Pupils are equal, round, and reactive to light. Extraocular movements intact. Conjunctiva and sclera normal. Eyelids normal. Ears: External auditory canal normal. Tympanic membranes normal. Throat: Pharynx normal. Uvula midline. Moist mucous membranes. Neck: Normal inspection. Neck supple. Full range of motion. No adenopathy. Thyroid Normal. No meningeal signs. No neck mass noted. Cardiovascular: Normal heart rate and rhythm. Heart sound normal. No murmurs noted. Pulses normal throughout. Respiratory: No respiratory distress. Painless inspiration. Breath sounds normal. No wheezes/rales/rhonchi noted. Chest nontender. No accessory muscle usage noted or decreased air movement noted. Abdomen: Soft and nontender. Bowel sounds normal in all 4 quadrants. No distention noted. No organomegaly noted. No visible injury noted. Back: No costovertebral angle tenderness. Full range of motion noted. Skin: Skin warm and dry. Normal skin color. Normal skin turgor. No rashes/lesions/lacerations noted. Extremities: No lower extremity edema. Extremities exhibit normal range of motion. Extremities nontender. Neuro: Oriented X 3. No motor deficit. No sensory deficit. Reflexes normal. Results - Labs: Previous HbA1c at 6.1. - Cholesterol from July 2024: Total Cholesterol 208, Triglycerides 181, LDL 136. Plan - Initiate trial of simvastatin for hyperlipidemia in place of atorvastatin to address musculoskeletal pain. - Arrange for follow-up hepatic function tests and reassess the necessity for hepatology consultation regarding the postponed biopsy of fatty liver disease. - Recommend blood work including HbA1c, liver function tests, lipid profile, CPK, ESR/CRP, and thyroid function tests. - Monitor blood pressure at home; encourage the patient to maintain a diary for future evaluation. - Consider initiating metformin pending follow-up blood work and further discussion on prediabetes. - Encourage continued abstinence from smoking to improve respiratory health. Patient was informed and verbally consented to the use of an ambient scribe for clinic note documentation during this visit. Discussion Notes During this consultation, I discussed with the patient the importance of managing hyperlipidemia and its potential side effects, such as musculoskeletal pain, which may necessitate a change to simvastatin. The implications of prediabetes on the patient's overall health were reviewed, with a recommendation for further laboratory assessments to potentially commence metformin. We highlighted the need for close monitoring of blood pressure readings and lifestyle modifications to manage cardiovascular risk factors effectively. Patient Instructions - Start simvastatin as prescribed and discontinue atorvastatin. - Keep a detailed blood pressure diary for the next three months. - Schedule and complete recommended blood work within the next month. - Maintain cessation of tobacco use and continue with healthy dietary choices. - Follow up in three months post-blood work results to review health status and medication efficacy. - Seek medical attention if symptoms of blurred vision or significant musculoskeletal pain persist or worsen.
== END 2024-11-21 11:45 | disposition home or self-care (01) ==
PROVIDERS: PCP Internal Medicine; Visit Provider Physician Assistant Medical
DX: E11.9 Type 2 diabetes mellitus without complications (principal); Z09 Encounter for follow-up examination after completed treatment for conditions other than malignant neoplasm; E66.9 Obesity, unspecified; Z68.35 Body mass index [BMI] 35.0-35.9, adult; R74.01 Elevation of levels of liver transaminase levels; D12.6 Benign neoplasm of colon, unspecified; G47.33 Obstructive sleep apnea (adult) (pediatric); F41.1 Generalized anxiety disorder; E78.00 Pure hypercholesterolemia, unspecified; D51.8 Other vitamin B12 deficiency anemias; F17.200 Nicotine dependence, unspecified, uncomplicated

== ENCOUNTER → 2024-11-21 11:06 | Outpatient (BNVA) | payer BC, SELFPAY | PROVIDERS: PCP Internal Medicine; Visit Provider Physician Assistant Medical | DX: E66.9 Obesity, unspecified (principal); Z68.35 Body mass index [BMI] 35.0-35.9, adult; R74.01 Elevation of levels of liver transaminase levels; E11.9 Type 2 diabetes mellitus without complications; G47.33 Obstructive sleep apnea (adult) (pediatric); F41.1 Generalized anxiety disorder; E78.00 Pure hypercholesterolemia, unspecified; D51.8 Other vitamin B12 deficiency anemias; F17.210 Nicotine dependence, cigarettes, uncomplicated; Z79.899 Other long term (current) drug therapy; Z86.0101 Personal history of adenomatous and serrated colon polyps | CPT/HCPCS: 96127 ==

== ENCOUNTER 2025-01-15 08:28 | Outpatient (REF) | payer BC, SELFPAY ==
[2025-01-15 08:49] LABS: MANUAL DIFF FLAG NO
[2025-01-15 09:14] LABS: Basophils Percent Auto 0.7 % (0-2); Eosinophils Absolute Auto 0.1 X10*3/uL (0.0-0.4); Eosinophils Percent Auto 2.1 % (0-4); Hemoglobin 15.3 g/dl (14.0-18.0); Imm Gran Abs Auto 0.04 X10*3/uL (0.00-0.03); Imm Gran Pct Auto 0.7 % (0.0-0.4); Lymphocytes Absolute Auto 1.4 X10*3/uL (1.2-4.9); Lymphocytes Percent Auto 23.5 % (20-40); Mean Corpuscular HGB Conc 33.3 g/dl (31.0-36.0); Mean Corpuscular Hemoglobin 30.7 pg (27.0-33.0); Mean Corpuscular Volume 92.4 fL (80.0-98.0); Mean Platelet Volume 8.9 fL (9.4-12.4); Monocytes Absolute Auto 0.6 X10*3/uL (0.1-1.2); Monocytes Percent Auto 10.4 % (2-11); Neutrophils Absolute Auto 3.8 x10*3/uL (2.0-8.3); Neutrophils Percent Auto 62.6 % (45-73); Platelet Count 207 X10*3/uL (160-400); Red Blood Count 4.98 X10*6/uL (4.60-5.80); White Blood Count 6.1 X10*3/uL (4.8-10.8)
[2025-01-15 09:23] LABS: Estimated Average Glucose 134 mg/dL; Hemoglobin A1C 180.9437 umol/L; Hemoglobin A1c % 6.3 % (<6.0); Total Hemoglobin (HGBA1C) 3967.2153 umol/L
[2025-01-15 09:52] LABS: Alanine Aminotransferase 214 U/L (0-40); Albumin Level 4.5 g/dL (3.5-5.0); Alkaline Phosphatase 70 U/L (39-117); Anion Gap 11 (12-20); Aspartate Amino Transferase 113 U/L (5-37); Bilirubin Direct 0.2 mg/dL (0.0-0.5); Bilirubin Total 0.5 mg/dL (0.0-1.0); Blood Urea Nitrogen 17 mg/dL (9-16); C Reactive Protein 0.42 mg/dL (< or = 0.50); Calcium 9.4 mg/dL (8.4-10.2); Carbon Dioxide 28 mmol/L (22-29); Chloride 106 mmol/L (96-108); Cholesterol 189 mg/dL (<200); Estimated Glomerular Filt Rate > 60; Glucose Fasting 127 mg/dL (60-99); HDL Cholesterol 38 mg/dL (>40); LDL Cholesterol Calculated 128 mg/dL (<100); Magnesium 2.2 mg/dL (1.6-2.6); Potassium 4.6 mmol/L (3.3-5.1); Sodium 140 mmol/L (135-145); Total Protein 7.7 g/dL (6.5-8.0); Triglycerides 115 mg/dL (<150)
[2025-01-15 10:04] LABS: PSA,Total (Free>4and<10) 0.59 ng/mL (0.00-4.00)
[2025-01-15 10:11] LABS: TSH reflex Free T4 0.93 uIU/mL (0.32-4.0); Vitamin D 25-OH Total 19.3 ng/mL (>30)
[2025-01-15 10:18] LABS: Folate 13.6 ng/mL (> or = 4.0); Vitamin B12 350 pg/mL (200-900)
[2025-01-15 12:13] LABS: Creatinine Urine 115.67 mg/dL; Microalbum/Creatinine Ratio Ur 6.9 ug/mg cr (<30)
[2025-01-26 01:13] LABS: Vitamin B1 7 nmol/L (8-30)
== END 2025-01-15 08:29 | disposition home or self-care (01) ==
LOC: HO.LAB 08:28
PROVIDERS: PCP Internal Medicine; Visit Provider Physician Assistant Medical
DX: Z00.00 Encounter for general adult medical examination without abnormal findings (principal); E11.9 Type 2 diabetes mellitus without complications; Z12.5 Encounter for screening for malignant neoplasm of prostate
CPT/HCPCS: 36415; 80053; 80061; 80076; 82043; 82248; 82306; 82550; 82570; 82607; 82746; 83036; 83735; 84153; 84425; 84443; 85025; 86140

== ENCOUNTER 2025-01-15 10:00 | Outpatient (AMB) | payer BC, SELFPAY ==
--- NOTE | 2025-01-15 10:05 | MHC.PC.OV ---
Vital Signs 01/15/25 10:06 Height 5 ft 5 in Weight 214 lb 2 oz BMI 35.6 BP 130/90 H Blood Pressure Location Lt brachial Position Sitting Pulse 84 Pulse Source Pulse Oximeter Temp 96.6 F L Temp Source Temporal Artery Scan Pulse Oximetry (%) 97 Oxygen Delivery Method Room Air Intake Visit Reasons: 3mth f/u Intake Note: Patient is here to follow up on DM, Hypercholesterolemia, NOEMÍ. Neurological Surgeon Required: No Marketing Producer: Not Required per policy Accompanied by: Self / Same As Patient Allergies atorvastatin Adverse Reaction (Intermediate, Verified 01/15/25 10:06) cramps Tobacco use date assessed: 01/15/25 Dental Screening Dental Screen Date: 11/21/24 [facility] Medical History Follow-up exam, 3-6 months since previous exam Loud snoring Transaminitis Diabetes mellitus Generalized anxiety disorder NOEMÍ (obstructive sleep apnea) HLD (hyperlipidemia) Asthma Hypercholesterolemia Vitamin B12 deficiency (dietary) anemia Surgical History History of colonoscopy (~11/16/23) History of vasectomy Family History Father Heart disease Stroke Mother Heart disease Diabetes Social History Household Members: Significant Other and Children Housing: House Do you presently have visiting nurse or other home services: No Unable to assess alcohol history related to: Unable to respond Alcohol intake: current Alcohol intake frequency: a few times a week Patient Tobacco Use Status: Former Tobacco user Cigarettes Per Day: 8 e-Cigarette/Vaping Use: Never Used Second Hand Smoke Exposure: Yes service: No Current occupational status: employed and other Cognitive needs: No Hearing needs: No Vision needs: No Questionnaire Thrive Questionnaire Date Thrive assessed: 11/21/24 MAY-7 AMB Questionnaire MAY-7 Date MAY - 7 assessed: 11/21/24 Source: Developed by Drs. Sincere Leo, Sole Nino, Maury Ravi and colleagues, with an educational mackenzie from [employer]. Physical exam (Primary Care) Vital Signs: Last Vital Signs Temp 96.6 F L 01/15/25 10:06 Pulse 84 01/15/25 10:06 BP 130/90 H 01/15/25 10:06 Pulse Ox 97 01/15/25 10:06 Oxygen Delivery Method Room Air 01/15/25 10:06 Care Plan Goal for BP management: BP in range, continue meds at same dosage BMI result Body Mass Index 35.6 BMI Assessment/Plan discussion: High (one pound per week weight loss suggested.) BMI High, discussed plan: lifestyle, weight reduction and dietary Tobacco/Smoking Status: Tobacco use Status Tobacco use date assessed 01/15/25 01/15/25 10:11 Patient Tobacco Use Status Former Tobacco user 01/15/25 10:11 e-Cigarette/Vaping Use Never Used 01/15/25 10:11 Thrive Assessment: Date of Thrive Assessment Date Thrive assessed 11/21/24 01/15/25 10:11 Coding Level of Care Code Est Pt Level 4 (22646) Complex EM visit Add On G2211 Diagnoses Diabetes mellitus E11.9 Assessment & Plan Assessment & Plan (1) Diabetes mellitus: Code(s): E11.9 - Type 2 diabetes mellitus without complications Category: Medical Plan: A1c is trending upwards. Metformin called in. Side effects explained. patient advised to lose weigth.
[2025-01-15 10:06] VITALS: BP 130/90; PULSE 84; TEMP 35.9; O2SAT 97; BMI 35.6
== END 2025-01-15 10:43 | disposition home or self-care (01) ==
LOC: HO.HMCH 10:01
PROVIDERS: PCP Internal Medicine; Visit Provider Internal Medicine
DX: E11.9 Type 2 diabetes mellitus without complications (principal)

== ENCOUNTER 2025-02-24 14:52 | Outpatient (AMB) | payer BC, SELFPAY ==
--- NOTE | 2025-02-24 15:11 | A.OFFVIS_ITS ---
Vital Signs 02/24/25 15:13 Height 5 ft 5 in Weight 211 lb 10.3 oz BMI 35.2 BP 142/68 H Blood Pressure Location Lt brachial Position Sitting Pulse 78 Intake Visit Reasons: elevated levels of liver transaminase Intake Note: Jesse presents in the office as a follow up for Elevated LFTs. CC: States that he is not really having concerns - states he was told he has fatty liver and was put on metformin - lower back pains started after being put on metformin. It has been going on for 2-3 weeks or so. Last couple days he has been okay but he is not sure if it is related tot he metformin. Behavioral Therapist Required: No Allergies atorvastatin Adverse Reaction (Intermediate, Verified 02/24/25 15:13) cramps HPI HPI elevated levels of liver transaminase: Details: PATIENT SEEN in the past only for screening colonoscopy appears to be here for a new evaluation for transaminitis. He is referred by Cecilio Lewis NOEMÍ Asthma Smoker Obesity -BMI OF 35 Diabetes High cholesterol Generalized anxiety disorder * SURGICAL HISTORY Colonoscopy -2023= TA repeat in 5 years Vasectomy * ALLERGIES Atorvastatin * The New Daily LABS: Laboratory Tests 01/15/25 08:48 WBC 6.1 Hgb 15.3 Hct 46.0 Plt Count 207 Estimated GFR > 60 Hemoglobin A1c % 6.3 H Total Bilirubin 0.5 Direct Bilirubin 0.2 AST 113 H ALT 214 H Alkaline Phosphatase 70 C-Reactive Protein 0.42 TSH 0.93 2017 ast/at 27/80 so some elevation back then TODAY'S VISIT He has an upcoming US via his PCP. He only drinks a couple of beers about twice a week, and he has abstained since finding out about the transaminitis. He admits he has gained about 20 lbs in the past 2 years. He admits to be pre diabetic over the past 15 years. He has strae that he has had since age 16 when was not overwt (??). In the past corn picker attributed this to skin stretching from rapid growth. No known FHX liver disease. There is mostly cardiac problems in the family. Will get additional tests, and go forward. He was fearful that he would need a liver biopsy but did not like the idea of ?being put out. ? I described the process of the liver biopsy in case we need 1 and explained that there really is no deep sedation involved however now a days we do not use this very often unless there is diagnostic uncertainty with blood work and imaging studies. I think given his recent weight gain his diabetes, and his relatively light al cohol use this likely is metabolic but of course we will rule out other possible reversible contributing conditions. ROV 8 weeks. [facility] Medical History (Updated 02/24/25 @ 15:52 by MARIANO Hassan) Annual physical exam Screening and evaluation for vasectomy Pre-op examination Follow-up exam, 3-6 months since previous exam Loud snoring Transaminitis Diabetes mellitus Generalized anxiety disorder NOEMÍ (obstructive sleep apnea) HLD (hyperlipidemia) Asthma Hypercholesterolemia Vitamin B12 deficiency (dietary) anemia Surgical History History of colonoscopy (~11/16/23) History of vasectomy Family History Father Heart disease Stroke Mother Heart disease Diabetes Social History Household Members: Significant Other and Children Housing: House Do you presently have visiting nurse or other home services: No Unable to assess alcohol history related to: Unable to respond Alcohol intake: current Alcohol intake frequency: a few times a week Patient Tobacco Use Status: Former Tobacco user Cigarettes Per Day: 8 e-Cigarette/Vaping Use: Never Used Second Hand Smoke Exposure: Yes service: No Current occupational status: employed and other Cognitive needs: No Hearing needs: No Vision needs: No Review of Systems Const Denies fatigue, Denies fever(s), Denies night sweats, Denies poor appetite, Reports weight gain and Denies weight loss ENT Reports Normal hearing present, Denies dental pain, Denies dysphagia, Denies hearing loss, Denies mouth pain, Denies odynophagia, Denies throat swelling, Denies tongue swelling and Reports other (Dentition adequate) Card Reports no additional complaints Resp Reports no additional complaints GI Details: Denies abdominal pain, Denies melena, Denies bloating, Denies hematochezia, Denies constipation, Denies GI cramping, Denies dysphagia, Denies excessive flatus, Denies early satiety, Denies heartburn, Denies diarrhea, Reports loose stools (Since trying to diet and eating more salads because of his diabetes), Denies nausea, Denies odynophagia, Denies vomiting and Denies hematemesis Musc Reports back pain Skin/Breast Denies pruritus, Denies lesions, Denies rash and Denies jaundice Neuro Reports Normal hearing present and Denies Abnormal speech present Psych Reports anxiety Endo Denies fatigue Aller/Immun Denies throat swelling and Denies tongue swelling Physical Exam Vital Signs: Last Vital Signs Pulse 78 02/24/25 15:13 BP 142/68 H 02/24/25 15:13 BMI result Body Mass Index 35.2 Const General: cooperative, no acute distress, well developed and well groomed Nutritional Appearance: well nourished and obese centrally obese Orientation/consciousness: oriented to person, oriented to place and oriented to time Limitations: No language barrier HEENT Head: Yes normocephalic and Yes atraumatic Eyes General: appearance normal, both eyes and all related structures Pupils: Equal, round and reactive pupils present Neck Neck: Yes normal visual inspection and Yes no lymphadenopathy Thyroid: Thyroid normal Resp Effort & Inspection: normal respiratory effort and able to speak in complete sentences Auscultation: clear to auscultation bilaterally Cardio Rate: regular rate Rhythm: regular rhythm Heart sounds: Normal, physiologic split S2 sound present Peripheral pulses: radial pulses present and posterior tibial pulses present GI Inspection: No distended, No Abdominal panniculus present, Yes obesity and Yes striae Palpation (GI): Soft to palpation, nontender, no guarding, not rigid and No hepatosplenomegaly present Percussion: Yes normal to percussion Auscultation: normal bowel sounds Rectal Exam - Male: Yes deferred Skin General skin exam: no rashes or lesions noted, turgor normal, skin not dry, no jaundice, No spider nevi and no striae Rashes: no rashes Nails: normal Neuro General: oriented to person, oriented to place and oriented to time Cranial nerves: Yes Equal, round and reactive pupils present and Yes Normal hearing present Speech: No Abnormal speech present Extrem General: Yes normal to inspection, No clubbing, No cyanosis and No edema Psych Appearance: grossly normal and well kempt Mental Status: mental status grossly normal Speech and movement: Normal speech and movement present Affect: normal affect Attitude: cooperative Thought process: Normal thought process present and not confabulating Thought content: Normal thought content present Insight: Good insight present (Psych) Judgement: Good judgement present (Psych) Assessment & Plan Assessment & Plan (1) Transaminitis: Code(s): R74.01 - Elevation of levels of liver transaminase levels Category: Medical (2) Diabetes mellitus: Code(s): E11.9 - Type 2 diabetes mellitus without complications Category: Medical (3) Obesity (BMI 30-39.9): Code(s): E66.9 - Obesity, unspecified Category: Medical Plan He has an upcoming US via his PCP. He only drinks a couple of beers about twice a week, and he has abstained since finding out about the transaminitis. He admits he has gained about 20 lbs in the past 2 years. He admits to be pre diabetic over the past 15 years. He has strae that he has had since age 16 when was not overwt (??). In the past corn picker attributed this to skin stretching from rapid growth. No known FHX liver disease. There is mostly cardiac problems in the family. Will get additional tests, and go forward. He was fearful that he would need a liver biopsy but did not like the idea of ?being put out. ? I described the process of the liver biopsy in case we need 1 and explained that there really is no deep sedation involved however now a days we do not use this very often unless there is diagnostic uncertainty with blood work and imaging studies. I think given his recent weight gain his diabetes, and his relatively light alcohol use this likely is metabolic but of course we will rule out other po ssible reversible contributing conditions. ROV 8 weeks. Orders: Orders Alpha Fetoprotein Today E11.9 - Type 2 diabetes mellitus without complications, R74.01 - Elevation of levels of liver transaminase levels Smooth Muscle Antibody Today E11.9 - Type 2 diabetes mellitus without complications, R74.01 - Elevation of levels of liver transaminase levels Mitochondrial Antibody Today E11.9 - Type 2 diabetes mellitus without complications, R74.01 - Elevation of levels of liver transaminase levels Liver Fibrosis Pnl Today E11.9 - Type 2 diabetes mellitus without complications, R74.01 - Elevation of levels of liver transaminase levels ENEDINA Reflex Titer and Pattern Today E11.9 - Type 2 diabetes mellitus without complications, R74.01 - Elevation of levels of liver transaminase levels Ferritin Today E11.9 - Type 2 diabetes mellitus without complications, R74.01 - Elevation of levels of liver transaminase levels Hepatitis A,B,C Profile Today E11.9 - Type 2 diabetes mellitus without complications, R74.01 - Elevation of levels of liver transaminase levels HIV Ab/Ag Today E11.9 - Type 2 diabetes mellitus without complications, R74.01 - Elevation of levels of liver transaminase levels Phosphatidylethanol, Blood Today R74.01 - Elevation of levels of liver transaminase levels Coding Level of Care Code Est Pt Level 4 (59605) Diagnoses Transaminitis R74.01 Diabetes mellitus E11.9 Obesity (BMI 30-39.9) E66.9 Time Spent (min) 39
[2025-02-24 15:13] VITALS: BP 142/68; PULSE 78; BMI 35.2
== END 2025-02-24 16:00 | disposition home or self-care (01) ==
LOC: HO.HGI 14:53
PROVIDERS: PCP Internal Medicine; Visit Provider Nurse Practitioner
DX: R74.01 Elevation of levels of liver transaminase levels (principal); E11.9 Type 2 diabetes mellitus without complications; E66.9 Obesity, unspecified
CPT/HCPCS: 99214

== ENCOUNTER 2025-03-20 10:30 | Outpatient (REF) | payer BC, SELFPAY ==
--- NOTE | ~2025-03-20 | US_ITS ---
EXAMINATION: US ABDOMEN COMPLETE CLINICAL INFORMATION: Elevated liver enzymes.. COMPARISON: General 2021. Correlated to CT dated November 16, 2023. TECHNIQUE: Real-time ultrasound of the abdomen using grayscale technique. FINDINGS: PANCREAS: No peripancreatic fluid collections. ABDOMINAL AORTA: The proximal, mid, and distal segments are normal in caliber. INFERIOR VENA CAVA: Visualized portions are normal. LIVER: Liver measures 15 cm. Increased echotexture. No solid or cystic lesion detected by the technologist. No intrahepatic biliary ductal dilatation. No gross nodular surface. GALLBLADDER: Fluid-filled. No pericholecystic fluid collection or gallbladder wall thickening. COMMON BILE DUCT: 4 mm. RIGHT KIDNEY: 12 cm. Normal echotexture. Normal renal cortical thickness. No hydronephrosis. No solid or cystic lesion. . LEFT KIDNEY: 12 cm. Normal echotexture. Normal renal cortical thickness. No hydronephrosis. No gross solid or cystic lesion. . SPLEEN: 10 cm. No focal lesion.. FREE FLUID: None. US/US abdomen complete IMPRESSION: Hepatic steatosis. No cholelithiasis. No hydronephrosis. No ascites. Electronically signed by: Johnny Shetty MD 03/20/2025 11:09 AM EDT
== END 2025-03-20 10:31 | disposition home or self-care (01) ==
LOC: HO.US 10:30
PROVIDERS: PCP Internal Medicine; Visit Provider Physician Assistant Medical
DX: R74.01 Elevation of levels of liver transaminase levels (principal)
CPT/HCPCS: 76700

== ENCOUNTER → 2025-03-20 10:32 | Outpatient (BNV) | payer BC, SELFPAY | PROVIDERS: PCP Internal Medicine; Visit Provider Radiology Diagnostic Radiology | DX: K76.0 Fatty (change of) liver, not elsewhere classified (principal) | CPT/HCPCS: 76700 ==

== ENCOUNTER 2025-04-27 08:28 | Outpatient (REF) | payer BC, SELFPAY ==
[2025-04-27 09:53] LABS: Alanine Aminotransferase 96 U/L (0-40); Albumin Level 4.6 g/dL (3.5-5.0); Alkaline Phosphatase 67 U/L (39-117); Aspartate Amino Transferase 65 U/L (5-37); Total Protein 7.6 g/dL (6.5-8.0)
[2025-04-27 10:03] LABS: HBS Num1 0.28 mIU/mL (0-7.99); HBc Num1 0.04 S/CO (0.00-0.79); HBsAGNum1 0.34 S/CO (0.00-0.99); HIV Num 1 0.07 S/CO (0.00-0.99); Hepatitis A Antibody IgM 0.17 Index (0-0.79); Hepatitis B Surface Antigen Negative (Negative); ~HepC Num1 0.07 S/CO (0.00-0.79); ~Hepatitis A Antibody IgM Nonreactive (Nonreactive); ~Hepatitis B Surface Antibody NONREACTIVE (Nonreactive); ~Hepatitis C Antibody Nonreactive (Nonreactive)
[2025-04-27 10:11] LABS: Ferritin 307 ng/mL (20-250)
[2025-04-30 13:43] LABS: Anti Nuclear Antibody Screen NEGATIVE (NEGATIVE)
[2025-05-08 09:04] LABS: Liver Fibrosis Score 0.15; Liver Fibrosis Stage F0
[2025-05-08 09:05] LABS: Nec Inflam Act Score 0.38
[2025-05-08 09:06] LABS: Nec Inflam Act Grade ( A1-A2 )
[2025-05-08 09:07] LABS: FIB-Alpha-2-Macroglobulin 135
[2025-05-08 09:08] LABS: FIB-Apolipoprotein A1 133; FIB-Haptoglobin 176
[2025-05-08 09:09] LABS: FIB-Total Bilirubin 0.5; Liver Fibrosis Interpretation NO FIBROSIS
[2025-05-08 09:10] LABS: Nec Inflam Act Interpretation minimal activity
[2025-05-08 09:11] LABS: FIB-ALT 73 H; FIB-GGT 52
[2025-05-08 09:13] LABS: Phosphatidylethanol 16:0-18:1 103; Phosphatidylethanol 16:0-18:2 77
== END 2025-04-27 08:29 | disposition home or self-care (01) ==
LOC: HO.LAB 08:28
PROVIDERS: PCP Internal Medicine; Visit Provider Nurse Practitioner
DX: Z00.00 Encounter for general adult medical examination without abnormal findings (principal); R74.01 Elevation of levels of liver transaminase levels; E11.9 Type 2 diabetes mellitus without complications
CPT/HCPCS: 36415; 80076; 80321; 81596; 82105; 82728; 86015; 86038; 86381; 86704; 86706; 86709; 86803; 87340; 87389

== ENCOUNTER 2025-04-28 09:49 | Outpatient (AMB) | payer BC, SELFPAY ==
--- NOTE | 2025-04-28 09:53 | A.OFFVIS_ITS ---
Vital Signs 04/28/25 09:55 Height 5 ft 5 in Weight 204 lb 9.423 oz BMI 34.0 BP 139/74 Blood Pressure Location Lt brachial Position Sitting Pulse 75 Intake Visit Reasons: 8 wks Transiminits Intake Note: Jesse presents in the office as a follow up for Elevated LFTs. CC: Patient denies having any GI symptoms. Dining Room Server Required: No Accompanied by: Self / Same As Patient Allergies atorvastatin Adverse Reaction (Intermediate, Verified 02/24/25 15:13) cramps HPI HPI 8 wks Transiminits: Details: Assessment & Plan (1) Transaminitis: Code(s): R74.01 - Elevation of levels of liver transaminase levels Category: Medical (2) Diabetes mellitus: Code(s): E11.9 - Type 2 diabetes mellitus without complications Category: Medical (3) Obesity (BMI 30-39.9): Code(s): E66.9 - Obesity, unspecified Category: Medical Plan He has an upcoming US via his PCP. He only drinks a couple of beers about twice a week, and he has abstained since finding out about the transaminitis. He admits he has gained about 20 lbs in the past 2 years. He admits to be pre diabetic over the past 15 years. He has strae that he has had since age 16 when was not overwt (??). In the past technical business systems analyst attributed this to skin stretching from rapid growth. No known FHX liver disease. There is mostly cardiac problems in the family. Will get additional tests, and go forward. He was fearful that he would need a liver biopsy but did not like the idea of ?being put out. ? I described the process of the liver biopsy in case we need 1 and explained that there really is no deep sedation involved however now a days we do not use this very often unless there is diagnostic uncertainty with blood work and imaging studies. I think given his recent weight gain his diabetes, and his relatively light alcohol use this likely is metabolic but of course we will rule out other possible reversible contributing conditions. ROV 8 weeks. Orders: Orders Alpha Fetoprotein Today E11.9 - Type 2 diabetes mellitus without complications, R74.01 - Elevation of levels of liver transaminase levels -[id number]- -[id number] -[id number] Today E11.9 - Type 2 diabetes mellitus without complications, R74.01 - Elevation of levels of liver transaminase levels Mitochondrial Antibody Today E11.9 - Type 2 diabetes mellitus without complications, R74.01 - Elevation of levels of liver transaminase levels Liver Fibrosis Pnl Today E11.9 - Type 2 diabetes mellitus without complicati ons, R74.01 - Elevation of levels of liver transaminase levels ENEDINA Reflex Titer and Pattern Today E11.9 - Type 2 diabetes mellitus without complications, R74.01 - Elevation of levels of liver transaminase levels Ferritin Today E11.9 - Type 2 diabetes mellitus without complications, R74.01 - Elevation of levels of liver transaminase levels Hepatitis A,B,C Profile Today E11.9 - Type 2 diabetes mellitus without complications, R74.01 - Elevation of levels of liver transaminase levels HIV Ab/Ag Today E11.9 - Type 2 diabetes mellitus without complications, R74.01 - Elevation of levels of liver transaminase levels Phosphatidylethanol, Blood Today R74.01 - Elevation of levels of liver transaminase levels LABS Laboratory Tests 01/15/25 04/27/25 08:48 08:41 Hemoglobin A1c % 6.3 H Ferritin 307 H Total Bilirubin 0.6 Direct Bilirubin 0.2 AST 113 H 65 H ALT 214 H 96 H Alkaline Phosphatase 67 Liver Fibrosis ALT Pending Mitochondrial AB Titer Pending Alpha Fetoprotein 6.4 H ENEDINA Screen Pending PEth 16:0/18.1 (POPEth) Pending Hepatitis A IgM Ab Nonreactive Hep Bs Antigen Negative Hep Bs Antibody NONREACTIVE Hep B Core Total Ab Nonreactive Hepatitis C Ab (EIA) Nonreactive HIV 1&2 Ab/P24 Ag 4thGn Nonreactive Laboratory Tests 07/25/24 01/15/25 04/27/25 10:08 08:48 08:41 Direct Bilirubin 0.2 0.2 0.2 AST 95 H 113 H 65 H ALT 202 H 214 H 96 H Alkaline Phosphatase 73 67 TODAYS VISIT We review the labs and he does not seem to have any sort of infectious causation. The autoimmune workup isn't back yet, but I am concerned that the alpha fetoprotein is elevated at greater than 6. We will get a an hCG tumor marker just to differentiate this from testicular germ cell cancer. However, it appears that this is related to the liver. Because he has gone from triple digit to double digits we review what has changed in a few months' time. For 1 that is when he was diagnose diabetic and started on medications so blood sugar control is likely a factor. He has also lost a few lb because he has been watching what he eats. He also stopped drinking alcohol. I think all 3 of these factors have been extremely positive in terms of his liver function and protecting his future liver health. I encouraged him to continue these healthy lifestyle choices. Return office visit in 6 weeks Smooth Muscle Antib Mitochondrial Antibody Liver Fibrosis Pnl ENEDINA Reflex Titer and Pattern Phosphatidylethanol, Blood PFSH Medical History (Updated 04/28/25 @ 17:22 by MARIANO Hassan) Annual physical exam Screening and evaluation for vasectomy Pre-op examination Follow-up exam, 3-6 months since previous exam Loud snoring Transaminitis Diabetes mellitus Generalized anxiety disorder NOEMÍ (obstructive sleep apnea) HLD (hyperlipidemia) Asthma Hypercholesterolemia Vitamin B12 deficiency (dietary) anemia Surgical History History of colonoscopy (~11/16/23) History of vasectomy Family History Father Heart disease Stroke Mother Heart disease Diabetes Social History Household Members: Significant Other and Children Housing: House Do you presently have visiting nurse or other home services: No Unable to assess alcohol history related to: Unable to respond Alcohol intake: current Alcohol intake frequency: a few times a week Patient Tobacco Use Status: Former Tobacco user Cigarettes Per Day: 8 e-Cigarette/Vaping Use: Never Used Second Hand Smoke Exposure: Yes service: No Current occupational status: employed and other Cognitive needs: No Hearing needs: No Vision needs: No Review of Systems Const Denies fatigue, Denies fever(s), Denies night sweats, Denies poor appetite and Reports weight loss ENT Reports Normal hearing present, Denies dental pain, Denies dysphagia, Denies hearing loss, Denies mouth pain, Denies odynophagia, Denies throat swelling, Denies tongue swelling and Reports other (Dentition adequate) Card Reports no additional complaints Resp Reports no additional complaints GI Details: Denies abdominal pain, Denies melena, Denies bloating, Denies hematochezia, Denies constipation, Denies GI cramping, Denies dysphagia, Denies excessive flatus, Denies early satiety, Denies heartburn, Denies diarrhea, Denies nausea, Denies odynophagia, Denies vomiting and Denies hematemesis Skin/Breast Denies pruritus, Denies lesions, Denies rash and Denies jaundice Neuro Reports Normal hearing present and Denies Abnormal speech present Endo Denies fatigue Aller/Immun Denies throat swelling and Denies tongue swelling Physical Exam Vital Signs: Last Vital Signs Pulse 75 04/28/25 09:55 BP 139/74 04/28/25 09:55 BMI result Body Mass Index 34.0 Const General: cooperative, no acute distress, well developed and well groomed Nutritional Appearance: well nourished and overweight Orientation/consciousness: oriented to person, oriented to place and oriented to time Limitations: No language barrier HEENT Head: Yes normocephalic and Yes atraumatic Eyes General: appearance normal, both eyes and all related structures Pupils: Equal, round and reactive pupils present Neck Neck: Yes normal visual inspection and Yes no lymphadenopathy Thyroid: Thyroid normal Resp Effort & Inspection: normal respiratory effort and able to speak in complete sentences Auscultation: clear to auscultation bilaterally Cardio Rate: regular rate Rhythm: regular rhythm Heart sounds: Normal, physiologic split S2 sound present Peripheral pulses: radial pulses present and posterior tibial pulses present GI Inspection: No distended, No Abdominal panniculus present and Yes obesity Palpation (GI): Soft to palpation, nontender, no guarding, not rigid and No hepatosplenomegaly present Percussion: Yes normal to percussion Auscultation: normal bowel sounds Rectal Exam - Male: Yes deferred Skin General skin exam: no rashes or lesions noted, turgor normal, skin not dry, no jaundice, No spider nevi and no striae Rashes: no rashes Nails: normal Neuro General: oriented to person, oriented to place and oriented to time Cranial nerves: Yes Equal, round and reactive pupils present and Yes Normal hearing present Speech: No Abnormal speech present Extrem General: Yes normal to inspection, No clubbing, No cyanosis and No edema Psych Appearance: grossly normal and well kempt Mental Status: mental status grossly normal Speech and movement: Normal speech and movement present Affect: normal affect Attitude: cooperative Thought process: Normal thought process present and not confabulating Thought content: Normal thought content present Insight: Good insight present (Psych) Judgement: Good judgement present (Psych) Assessment & Plan Assessment & Plan (1) Transaminitis: Comment: BASELINE LABS 01/15/2507/21/25 08:4808:41 Hemoglobin A1c % 6.3 H Ferritin 307 H Total Bilirubin 0.6 Direct Bilirubin 0.2 AST 113 H 65 H ALT 214 H 96 H Alkaline Phosphatase 67 Liver Fibrosis ALT Pending Mitochondrial AB Titer Pending Alpha Fetoprotein 6.4 H ENEDINA Screen Pending PEth 16:0/18.1 (POPEth) Pending Hepatitis A IgM Ab Nonreactive Hep Bs Antigen Negative Hep Bs Antibody NONREACTIVE Hep B Core Total Ab Nonreactive Hepatitis C Ab (EIA) Nonreactive HIV 1&2 Ab/P24 Ag 4thGn Nonreactive Laboratory Tests 07/25/2404/ 10:0808:[id number]:41 Direct Bilirubin 0.2 0.2 0.2 AST 95 H 113 H 65 H ALT 202 H 214 H 96 H Alkaline Phosphatase 73 67 CURRENT LABS ULTRASOUND OF THE ABDOMEN 03/20/2025 FINDINGS: PANCREAS: No peripancreatic fluid collections. ABDOMINAL AORTA: The proximal, mid, and distal segments are normal in caliber. INFERIOR VENA CAVA: Visualized portions are normal. LIVER: Liver measures 15 cm. Increased echotexture. No solid or cystic lesion detected by the technologist. No intrahepatic biliary ductal dilatation. No gross nodular surface. GALLBLADDER: Fluid-filled. No pericholecystic fluid collection or gallbladder wall thickening. COMMON BILE DUCT: 4 mm. RIGHT KIDNEY: 12 cm. Normal echotexture. Normal renal cortical thickness. No hydronephrosis. No solid or cystic lesion. . LEFT KIDNEY: 12 cm. Normal echotexture. Normal renal cortical thickness. No hydronephrosis. No gross solid or cystic lesion. . SPLEEN: 10 cm. No focal lesion.. FREE FLUID: None. US/US abdomen complete IMPRESSION: Hepatic steatosis. No cholelithiasis. No hydronephrosis. No ascites. Code(s): R74.01 - Elevation of levels of liver transaminase levels Category: Medical (2) Obesity (BMI 30-39.9): Code(s): E66.9 - Obesity, unspecified Category: Medical (3) Diabetes mellitus: Code(s): E11.9 - Type 2 diabetes mellitus without complications Category: Medical (4) Elevated alpha fetoprotein: Code(s): R77.2 - Abnormality of alphafetoprotein Category: Medical Plan We review the labs and he does not seem to have any sort of infectious causation. The autoimmune workup isn't back yet, but I am concerned that the alpha fetoprotein is elevated at greater than 6. We will get a an hCG tumor marker just to differentiate this from testicular germ cell cancer. However, it appears that this is related to the liver. Because he has gone from triple digit to double digits we review what has changed in a few months' time. For 1 that is when he was diagnose diabetic and started on medications so blood sugar control is likely a factor. He has also lost a few lb because he has been watching what he eats. He also stopped drinking alcohol. I think all 3 of these factors have been extremely positive in terms of his liver function and protecting his future liver health. I encouraged him to continue these healthy lifestyle choices. Return office visit in 6 weeks Smooth Muscle Antib Mitochondrial Antibody Liver Fibrosis Pnl ENEDINA Reflex Titer and Pattern Phosphatidylethanol, Blood Orders: Orders HCG Tumor Marker Today R77.2 - Abnormality of alphafetoprotein Coding Level of Care Code Est Pt Level 3 (55353) Diagnoses Transaminitis R74.01 Obesity (BMI 30-39.9) E66.9 Diabetes mellitus E11.9 Elevated alpha fetoprotein R77.2
[2025-04-28 09:55] VITALS: BP 139/74; PULSE 75; BMI 34.0
== END 2025-04-28 10:23 | disposition home or self-care (01) ==
LOC: HO.HGI 09:50
PROVIDERS: PCP Internal Medicine; Visit Provider Nurse Practitioner
DX: R74.01 Elevation of levels of liver transaminase levels (principal); E66.9 Obesity, unspecified; E11.9 Type 2 diabetes mellitus without complications; R77.2 Abnormality of alphafetoprotein
CPT/HCPCS: 99213

== ENCOUNTER 2025-05-13 08:24 | Outpatient (AMB) | payer BC, SELFPAY ==
--- NOTE | 2025-05-13 08:39 | MHC.PC.OV ---
Vital Signs 05/13/25 08:40 Height 5 ft 5 in Weight 206 lb 8 oz BMI 34.4 BP 126/66 Blood Pressure Location Lt brachial Position Sitting Pulse 74 Pulse Source Pulse Oximeter Temp 97.3 F Temp Source Temporal Artery Scan Pulse Oximetry (%) 97 Oxygen Delivery Method Room Air Intake Visit Reasons: Annual Exam Intake Note: Patient is here today for a physical. 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 Spareribs Trimmer: Not Required per policy Accompanied by: Self / Same As Patient Allergies atorvastatin Adverse Reaction (Intermediate, Verified 05/13/25 16:43) cramps Medication List - Last Reconciled 05/13/25 by Cecilio Lewis MD albuterol sulfate 90 mcg/actuation 1 puff inhalation DAILY PRN 30 days cholecalciferol (vitamin D3) 50 mcg PO DAILY metformin 500 mg PO DAILY omeprazole 40 mg (2 x 20 mg) PO DAILY sertraline (Zoloft) 50 mg PO DAILY simvastatin 10 mg PO BEDTIME thiamine HCl (vitamin B1) 100 mg (2 x 50 mg) PO DAILY Tobacco use date assessed: 05/13/25 Dental Screening Dental Screen Date: 11/21/24 HPI Annual Exam HPI Details 50-year-old male presents to the office requesting an annual physical exam. [facility] Medical History Annual physical exam Screening and evaluation for vasectomy Pre-op examination Follow-up exam, 3-6 months since previous exam Loud snoring Transaminitis Diabetes mellitus Generalized anxiety disorder NOEMÍ (obstructive sleep apnea) HLD (hyperlipidemia) Asthma Hypercholesterolemia Vitamin B12 deficiency (dietary) anemia Surgical History History of colonoscopy (~11/16/23) History of vasectomy Family History Father Heart disease Stroke Mother Heart disease Diabetes Social History Household Members: Significant Other and Children Housing: House Do you presently have visiting nurse or other home services: No Unable to assess alcohol history related to: Unable to respond Alcohol intake: current Alcohol intake frequency: a few times a week Patient Tobacco Use Status: Former Tobacco user Cigarettes Per Day: 8 e-Cigarette/Vaping Use: Never Used Second Hand Smoke Exposure: Yes service: No Current occupational status: employed and other Cognitive needs: No Hearing needs: No Vision needs: No Questionnaire PHQ-9 Over the last 2 weeks, how often have you been bothered by any of the following problems? 1. Little interest or pleasure in doing things: not at all 2. Feeling down, depressed, or hopeless: not at all 3. Trouble falling or staying asleep, or sleeping too much: not at all 4. Feeling tired or having little energy: not at all 5. Poor appetite or overeating: not at all 6. Feeling bad about yourself - or that you are a failure or have let yourself or your family down: not at all 7. Trouble concentrating on things, such as reading the newspaper or watching television: not at all 8. Moving or speaking so slowly that other people could have noticed. Or the opposite - being so fidgety or restless that you have been moving around a lot more than usual: not at all 9. Thoughts that you would be better off or of hurting yourself in some way: not at all Total score: 0 Depression Screening Interpretation: Negative Depression Screening Done: Yes Source: Developed by Drs. Sincere Leo, Sole Nino, Maury Ravi and colleagues, with an educational mackenzie from [employer] Thrive Questionnaire Date Thrive assessed: 05/12/25 I am a: Patient What is your living situation today?: I have a steady place to live Within the past 12 months, did the food you bought not last and you didn't have the money to get more?: Often true Within the past 12 months, did you worry whether your food would run out before you got money to buy more?: Never true Do you have trouble paying for medicines?: No Do you have trouble getting transportation to medical appointments?: No Do you have trouble paying your heating and electricity bill?: No Do you have trouble taking care of your child, family member or friend?: No Do you have trouble with day-to-day activities such as bathing, preparing meals, shopping, managing finances, etc.?: No Are you currently unemployed and looking for a job?: No Are you interested in more education?: No Please select the resources that you would like help with: None Currently or been in a relationship where the following occur: No concerns reported THRIVE Score: 1 AUDIT C Alcohol Use Questionnaire (AUDIT-C) 1. How often do you have a drink containing alcohol?: 2-4 times a month 2. How many drinks containing alcohol do you have on a typical day when you are drinking?: 1 or 2 3. How often do you have six or more drinks on one occasion?: Never Total Score: 2 MAY-7 AMB Questionnaire MAY-7 Date MAY - 7 assessed: 11/21/24 Feeling nervous, anxious, or on edge: 1 = Several days Not being able to stop or control worryin = Not at all Worrying too much about different things: 0 = Not at all Trouble relaxin = Not at all Being so restless that it is hard to sit still: 0 = Not at all Becoming easily annoyed or irritable: 0 = Not at all Feeling afraid as if something awful might happen: 0 = Not at all Total MAY-7 score (0-4 normal; 5-9 mild; 10-14 moderate; 15-21 severe): 1 Source: Developed by Drs. Sincere Leo, Sole Nino, Maury Ravi and colleagues, with an educational mackenzie from [employer] Physical exam (Primary Care) Vital Signs: Last Vital Signs Temp 97.3 F 05/13/25 08:40 Pulse 74 05/13/25 08:40 BP 126/66 05/13/25 08:40 Pulse Ox 97 05/13/25 08:40 Oxygen Delivery Method Room Air 05/13/25 08:40 BMI result Body Mass Index 34.4 Tobacco/Smoking Status: Tobacco use Status Tobacco use date assessed 05/13/25 05/13/25 08:46 Patient Tobacco Use Status Former Tobacco user 05/13/25 08:46 e-Cigarette/Vaping Use Never Used 05/13/25 08:46 PHQ-9: PHQ-9 Score PHQ-9: Total score 0 05/13/25 08:51 Depression Screening Interpretation: Negative Thrive Assessment: Date of Thrive Assessment Date Thrive assessed 05/12/25 05/13/25 08:46 Currently or been in a relationship where the following occur: No concerns reported Const General: cooperative and healthy appearing Nutritional Appearance: well nourished Orientation/consciousness: patient oriented x3 Limitations: no limitations HENMT Head: Yes normal to inspection Eyes General: appearance normal, both eyes and all related structures Neck Neck: Yes normal visual inspection Chest Chest palpation & inspection: normal palpation of entire chest wall Resp Effort & Inspection: normal respiratory effort Neuro General: patient oriented x3 Results AMB Hemoglobin A1c AMB Hemoglobin A1c 6.1 % Last Edit by MATT Grey on 05/13/25 08:53 Results Reviewed Results Reviewed: Laboratory Last Values Hgb A1c (Clinic) 6.1 % (4.0-6.0) H 05/13/25 08:39 Coding Level of Care Code Est Pt Prev Care 40-64y(51784) Diagnoses Annual physical exam Z00.00 Assessment & Plan Assessment & Plan (1) Annual physical exam: Code(s): Z00.00 - Encounter for general adult medical examination without abnormal findings Plan: Labs reviewed. Orders: Orders AMB Hemoglobin A1c Today E11.9 - Type 2 diabetes mellitus without complications Medications: Refilled simvastatin 10 mg PO BEDTIME 90 tabs 1RF
[2025-05-13 08:40] VITALS: BP 126/66; PULSE 74; TEMP 36.3; O2SAT 97; BMI 34.4
== END 2025-05-13 09:14 | disposition home or self-care (01) ==
LOC: HO.HMCH 08:25
PROVIDERS: PCP Internal Medicine; Visit Provider Internal Medicine
DX: E11.9 Type 2 diabetes mellitus without complications (principal); Z00.00 Encounter for general adult medical examination without abnormal findings

== ENCOUNTER → 2025-05-13 08:24 | Outpatient (BNVA) | payer BC, SELFPAY | PROVIDERS: PCP Internal Medicine; Visit Provider Internal Medicine | DX: Z00.00 Encounter for general adult medical examination without abnormal findings (principal); E11.9 Type 2 diabetes mellitus without complications; Z13.31 Encounter for screening for depression | CPT/HCPCS: 83036; 96127 ==

== ENCOUNTER 2025-06-09 11:36 | Outpatient (REF) | payer BC, SELFPAY | END 2025-06-09 11:37 | disposition home or self-care (01) | LOC: HO.LAB 11:36 | PROVIDERS: PCP Internal Medicine; Visit Provider Nurse Practitioner | DX: R77.2 Abnormality of alphafetoprotein (principal) | CPT/HCPCS: 36415; 84702 ==

== ENCOUNTER 2025-06-10 10:13 | Outpatient (AMB) | payer BC, SELFPAY ==
--- NOTE | 2025-06-10 10:17 | MHC.OFFVIS ---
Vital Signs 06/10/25 10:18 Height 5 ft 5 in Weight 208 lb 15.971 oz BMI 34.8 BP 136/79 Blood Pressure Location Rt brachial Position Sitting Pulse 75 Intake Visit Reasons: 6 wks f/u Intake Note: Jesse presents to in office follow up of transaminitis and lab results. CC: Patient reports doing well. 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 Accompanied by: Self / Same As Patient Allergies atorvastatin Adverse Reaction (Intermediate, Verified 06/10/25 10:22) cramps HPI HPI 6 wks f/u: Details: Assessment & Plan (1) Transaminitis: Comment: BASELINE LABS 01/15/2507/21/25 08:4808:41 Hemoglobin A1c % 6.3 H Ferritin 307 H Total Bilirubin 0.6 Direct Bilirubin 0.2 AST 113 H 65 H ALT 214 H 96 H Alkaline Phosphatase 67 Liver Fibrosis ALT Pending Mitochondrial AB Titer Pending Alpha Fetoprotein 6.4 H ENEDINA Screen Pending PEth 16:0/18.1 (POPEth) Pending Hepatitis A IgM Ab Nonreactive Hep Bs Antigen Negative Hep Bs Antibody NONREACTIVE Hep B Core Total Ab Nonreactive Hepatitis C Ab (EIA) Nonreactive HIV 1&2 Ab/P24 Ag 4thGn Nonreactive Laboratory Tests 07/25/2404/ 10:0808:4808:41 Direct Bilirubin 0.2 0.2 0.2 AST 95 H 113 H 65 H ALT 202 H 214 H 96 H Alkaline Phosphatase 73 67 CURRENT LABS ULTRASOUND OF THE ABDOMEN 03/20/2025 FINDINGS: PANCREAS: No peripancreatic fluid collections. ABDOMINAL AORTA: The proximal, mid, and distal segments are normal in caliber. INFERIOR VENA CAVA: Visualized portions are normal. LIVER: Liver measures 15 cm. Increased echotexture. No solid or cystic lesion detected by the technologist. No intrahepatic biliary ductal dilatation. No gross nodular surface. GALLBLADDER: Fluid-filled. No pericholecystic fluid collection or gallbladder wall thickening. COMMON BILE DUCT: 4 mm. RIGHT KIDNEY: 12 cm. Normal echotexture. Normal renal cortical thickness. No hydronephrosis. No solid or cystic lesion. . LEFT KIDNEY: 12 cm. Normal echotexture. Normal renal cortical thickness. No hydronephrosis. No gross solid or cystic lesion. . SPLEEN: 10 cm. No focal lesion.. FREE FLUID: None. US/US abdomen complete IMPRESSION: Hepatic steatosis. No cholelithiasis. No hydronephrosis. No ascites. Code(s): R74.01 - Elevation of levels of liver transaminase levels Category: Medical (2) Obesity (BMI 30-39.9): Code(s): E66.9 - Obesity, unspecified Category: Medical (3) Diabetes mellitus: Code(s): E11.9 - Type 2 diabetes mellitus without complications Category: Medical (4) Elevated alpha fetoprotein: Code(s): R77.2 - Abnormality of alphafetoprotein Category: Medical Plan We review the labs and he does not seem to have any sort of infectious causation. The autoimmune workup isn't back yet, but I am concerned that the alpha fetoprotein is elevated at greater than 6. We will get a an hCG tumor marker just to differentiate this from testicular germ cell cancer. However, it appears that this is related to the liver. Because he has gone from triple digit to double digits we review what has changed in a few months' time. For 1 that is when he was diagnose diabetic and started on medications so blood sugar control is likely a factor. He has also lost a few lb because he has been watching what he eats. He also stopped drinking alcohol. I think all 3 of these factors have been extremely positive in terms of his liver function and protecting his future liver health. I encouraged him to continue these healthy lifestyle choices. Return office visit in 6 weeks Smooth Muscle Antib Mitochondrial Antibody Liver Fibrosis Pnl ENEDINA Reflex Titer and Pattern Phosphatidylethanol, Blood Orders: Orders HCG Tumor Marker Today R77.2 - Abnormality of alphafetoprotein LABS: Laboratory Tests 04/27/25 06/09/25 08:41 11:54 Ferritin 307 H Direct Bilirubin 0.2 AST 65 H ALT 96 H Alkaline Phosphatase 67 Liver Fibrosis Stage F0 Alpha Fetoprotein 6.4 H Tumor Marker HCG <5 ENEDINA Screen NEGATIVE Anti-Mitochondrial Ab NEGATIVE Anti-Smooth Muscle Ab <20 PEth 16:0/18.1 (POPEth) 103 PEth 16:0/18.2 (PLPEth) 77 TODAY'S VISIT [facility] Medical History Annual physical exam Screening and evaluation for vasectomy Pre-op examination Follow-up exam, 3-6 months since previous exam Loud snoring Transaminitis Diabetes mellitus Generalized anxiety disorder NOEMÍ (obstructive sleep apnea) HLD (hyperlipidemia) Asthma Hypercholesterolemia Vitamin B12 deficiency (dietary) anemia Surgical History History of colonoscopy (~11/16/23) History of vasectomy Family History Father Heart disease Stroke Mother Heart disease Diabetes Social History Household Members: Significant Other and Children Housing: House Do you presently have visiting nurse or other home services: No Unable to assess alcohol history related to: Unable to respond Alcohol intake: current Alcohol intake frequency: a few times a week Patient Tobacco Use Status: Former Tobacco user Cigarettes Per Day: 8 e-Cigarette/Vaping Use: Never Used Second Hand Smoke Exposure: Yes service: No Current occupational status: employed and other Cognitive needs: No Hearing needs: No Vision needs: No Review of Systems Const Denies fatigue, Denies fever(s), Denies night sweats, Denies poor appetite and Denies weight loss ENT Reports Normal hearing present, Denies dental pain, Denies dysphagia, Denies hearing loss, Denies mouth pain, Denies odynophagia, Denies throat swelling, Denies tongue swelling and Reports other (Dentition adequate) Card Reports no additional complaints Resp Reports no additional complaints GI Details: Denies abdominal pain, Denies melena, Denies bloating, Denies hematochezia, Denies constipation, Denies GI cramping, Denies dysphagia, Denies excessive flatus, Denies early satiety, Denies heartburn, Denies diarrhea, Denies nausea, Denies odynophagia, Denies vomiting and Denies hematemesis Skin/Breast Denies pruritus, Denies lesions, Denies rash and Denies jaundice Neuro Reports Normal hearing present and Denies Abnormal speech present Endo Denies fatigue Aller/Immun Denies throat swelling and Denies tongue swelling Physical Exam Vital Signs: Last Vital Signs Pulse 75 06/10/25 10:18 BP 136/79 06/10/25 10:18 BMI result Body Mass Index 34.8 Const General: cooperative, no acute distress, well developed and well groomed Nutritional Appearance: well nourished and obese Orientation/consciousness: oriented to person, oriented to place and oriented to time Limitations: No language barrier HEENT Head: Yes normocephalic and Yes atraumatic Eyes General: appearance normal, both eyes and all related structures Pupils: Equal, round and reactive pupils present Neck Neck: Yes normal visual inspection and Yes no lymphadenopathy Thyroid: Thyroid normal Resp Effort & Inspection: normal respiratory effort and able to speak in complete sentences Auscultation: clear to auscultation bilaterally Cardio Rate: regular rate Rhythm: regular rhythm Heart sounds: Normal, physiologic split S2 sound present Peripheral pulses: radial pulses present and posterior tibial pulses present GI Inspection: No distended, No Abdominal panniculus present and Yes obesity Palpation (GI): Soft to palpation, nontender, no guarding, not rigid, No hepatosplenomegaly present and Hepatosplenomegaly present Percussion: Yes normal to percussion Auscultation: normal bowel sounds Rectal Exam - Male: Yes deferred Skin General skin exam: no rashes or lesions noted, turgor normal, skin not dry, no jaundice, No spider nevi and no striae Rashes: no rashes Nails: normal Neuro General: oriented to person, oriented to place and oriented to time Cranial nerves: Yes Equal, round and reactive pupils present and Yes Normal hearing present Speech: No Abnormal speech present Extrem General: Yes normal to inspection, No clubbing, No cyanosis and No edema Psych Appearance: grossly normal and well kempt Mental Status: mental status grossly normal Speech and movement: Normal speech and movement present Affect: normal affect Attitude: cooperative Thought process: Normal thought process present and not confabulating Thought content: Normal thought content present Insight: Fair insight present (Psych) and Limited insight present (Psych) Judgement: Fair judgement present (Psych) and Limited judgement present (Psych) Assessment & Plan Assessment & Plan (1) Transaminitis: Comment: BASELINE LABS 01/15/2507/21/25 08:4808:41 Hemoglobin A1c % 6.3 H Ferritin 307 H Total Bilirubin 0.6 Direct Bilirubin 0.2 AST 113 H 65 H ALT 214 H 96 H Alkaline Phosphatase 67 Liver Fibrosis ALT F0 Mitochondrial AB Titer negative Smooth muscle antibody < 20 ENEDINA Screen Pending PEth 16:0/18.1 (POPEth) 103/ Hepatitis A IgM Ab Nonreactive Hep Bs Antigen Negative Hep Bs Antibody NONREACTIVE Hep B Core Total Ab Nonreactive Hepatitis C Ab (EIA) Nonreactive HIV 1&2 Ab/P24 Ag 4thGn Nonreactive 07/25/2404/ 10:0808:4808:41 Direct Bilirubin 0.2 0.2 0.2 AST 95 H 113 H 65 H ALT 202 H 214 H 96 H Alkaline Phosphatase 73 67 Alpha Fetoprotein 6.4 H Tumor Marker HCG <5 CURRENT LABS 04/27/2509/02/25 08:4111:54 Ferritin 307 H Direct Bilirubin 0.2 AST 65 H ALT 96 H Alkaline Phosphatase 67 Liver Fibrosis Stage F0 Alpha Fetoprotein 6.4 H Tumor Marker HCG <5 ENEDINA Screen NEGATIVE Anti-Mitochondrial Ab NEGATIVE Anti-Smooth Muscle Ab <20 PEth 16:0/18.1 (POPEth) 103 PEth 16:0/18.2 (PLPEth) 77 ULTRASOUND OF THE ABDOMEN 03/20/2025 FINDINGS: PANCREAS: No peripancreatic fluid collections. ABDOMINAL AORTA: The proximal, mid, and distal segments are normal in caliber. INFERIOR VENA CAVA: Visualized portions are normal. LIVER: Liver measures 15 cm. Increased echotexture. No solid or cystic lesion detected by the technologist. No intrahepatic biliary ductal dilatation. No gross nodular surface. GALLBLADDER: Fluid-filled. No pericholecystic fluid collection or gallbladder wall thickening. COMMON BILE DUCT: 4 mm. RIGHT KIDNEY: 12 cm. Normal echotexture. Normal renal cortical thickness. No hydronephrosis. No solid or cystic lesion. . LEFT KIDNEY: 12 cm. Normal echotexture. Normal renal cortical thickness. No hydronephrosis. No gross solid or cystic lesion. . SPLEEN: 10 cm. No focal lesion.. FREE FLUID: None. US/US abdomen complete IMPRESSION: Hepatic steatosis. No cholelithiasis. No hydronephrosis. No ascites. Code(s): R74.01 - Elevation of levels of liver transaminase levels Category: Medical (2) Elevated alpha fetoprotein: Comment: 6.4 04/2025 Code(s): R77.2 - Abnormality of alphafetoprotein Category: Medical Plan (Because he has gone from triple digit to double digits we review what has changed in a few months' time. For 1 that is when he was diagnose diabetic and started on medications so blood sugar control is likely a factor. He has also lost a few lb because he has been watching what he eats. He also stopped drinking alcohol. I think all 3 of these factors have been extremely positive in terms of his liver function and protecting his future liver health. I encouraged him to continue these healthy lifestyle choices) - The patient is a 50 year old male presenting with elevated liver markers. - Previous tests showed elevated alpha-fetoprotein but negative for testicular cancer markers. - Liver transaminases have decreased from previously elevated triple-digit values with current modest improvement. - Patient ceased regular alcohol intake three to four months ago, with some alcohol-related blood markers still elevated. Path report still shows some elevation, so he is probably still drinking occasionally since the half-life of this test is usually anywhere from 7-12 days. - Familial history reveals significant cardiac problems, including parental histories of heart disease and procedures. His father also was an alcoholic and suffered liver disease. - Diabetes, managed as part of patient?s condition, with family history influencing metabolic conditions, potentially impacting liver health. - for now I support continued abstinence from alcohol, it is also going to be combined with diabetes control and watching his weight as he ages. It is likely they he has an overlap of metabolic fatty liver and regular alcohol use in the past. I again supported that you do not have to be an alcoholic but unfortunately those who inherent fatty liver usually can not sustain any daily alcohol intake without progressing to cirrhosis or liver cancer. I would like to see his transaminases come down from the high 40s/50s to more normal levels and I think if he can continue abstaining this is possible. The elevated alpha-fetoprotein is somewhat concerning, which means we need to keep a close watch and even consider a liver MRI for the next study. Return office visit in 6 months Coding Level of Care Code Est Pt Level 3 (54984) Diagnoses Transaminitis R74.01 Elevated alpha fetoprotein R77.2
[2025-06-10 10:18] VITALS: BP 136/79; PULSE 75; BMI 34.8
== END 2025-06-10 10:49 | disposition home or self-care (01) ==
LOC: HO.HGI 10:14
PROVIDERS: PCP Internal Medicine; Visit Provider Nurse Practitioner
DX: R74.01 Elevation of levels of liver transaminase levels (principal); R77.2 Abnormality of alphafetoprotein
CPT/HCPCS: 99213

== ENCOUNTER 2025-07-30 10:11 | Outpatient (AMB) | payer BC, SELFPAY ==
--- NOTE | 2025-07-30 10:25 | MHC.PC.OV ---
Vital Signs 07/30/25 10:26 Height 5 ft 5 in Weight 210 lb 8 oz BMI 35.0 BP 150/86 H Blood Pressure Location Lt brachial Position Sitting Pulse 92 Pulse Source Pulse Oximeter Temp 97.1 F Temp Source Temporal Artery Scan Pulse Oximetry (%) 98 Oxygen Delivery Method Room Air Intake Visit Reasons: follow up Intake Note: Patient is here to follow up on DM, NOEMÍ, Hypercholesterolemia. Power Cleaner Operator Required: No Brusher Hand: Not Required per policy Accompanied by: Self / Same As Patient Allergies atorvastatin Adverse Reaction (Intermediate, Verified 07/30/25 10:26) cramps Tobacco use date assessed: 07/30/25 Dental Screening Dental Screen Date: 11/21/24 [facility] Medical History Annual physical exam Screening and evaluation for vasectomy Pre-op examination Follow-up exam, 3-6 months since previous exam Loud snoring Transaminitis Diabetes mellitus Generalized anxiety disorder NOEMÍ (obstructive sleep apnea) HLD (hyperlipidemia) Asthma Hypercholesterolemia Vitamin B12 deficiency (dietary) anemia Surgical History History of colonoscopy (~11/16/23) History of vasectomy Family History Father Heart disease Stroke Mother Heart disease Diabetes Social History Household Members: Significant Other and Children Housing: House Do you presently have visiting nurse or other home services: No Alcohol intake: current Alcohol intake frequency: a few times a week Patient Tobacco Use Status: Former Tobacco user Cigarettes Per Day: 8 e-Cigarette/Vaping Use: Never Used Second Hand Smoke Exposure: Yes service: No Current occupational status: employed and other Cognitive needs: No Hearing needs: No Vision needs: No Questionnaire Thrive Questionnaire Date Thrive assessed: 05/12/25 I am a: Patient What is your living situation today?: I have a steady place to live Within the past 12 months, did the food you bought not last and you didn't have the money to get more?: Often true Within the past 12 months, did you worry whether your food would run out before you got money to buy more?: Never true Do you have trouble paying for medicines?: No Do you have trouble getting transportation to medical appointments?: No Do you have trouble paying your heating and electricity bill?: No Do you have trouble taking care of your child, family member or friend?: No Do you have trouble with day-to-day activities such as bathing, preparing meals, shopping, managing finances, etc.?: No Are you currently unemployed and looking for a job?: No Are you interested in more education?: No Please select the resources that you would like help with: None Currently or been in a relationship where the following occur: No concerns reported THRIVE Score: 1 MAY-7 AMB Questionnaire MAY-7 Date MAY - 7 assessed: 11/21/24 Source: Developed by Drs. Sincere Leo, Sole Nino, Maury Ravi and colleagues, with an educational mackenzie from [employer]. Physical exam (Primary Care) Vital Signs: Last Vital Signs Temp 97.1 F 07/30/25 10:26 Pulse 92 07/30/25 10:26 BP 150/86 H 07/30/25 10:26 Pulse Ox 98 07/30/25 10:26 Oxygen Delivery Method Room Air 07/30/25 10:26 BMI result Body Mass Index 35.0 Tobacco/Smoking Status: Tobacco use Status Tobacco use date assessed 07/30/25 07/30/25 10:30 Patient Tobacco Use Status Former Tobacco user 07/30/25 10:30 e-Cigarette/Vaping Use Never Used 07/30/25 10:30 Thrive Assessment: Date of Thrive Assessment Date Thrive assessed 05/12/25 07/30/25 10:30 Currently or been in a relationship where the following occur: No concerns reported Coding Level of Care Code Est Pt Level 4 (75678) Complex EM visit Add On G2211 Diagnoses Anxiety about health F41.8 Assessment & Plan Assessment & Plan (1) Anxiety about health: Code(s): F41.8 - Other specified anxiety disorders Category: Medical Plan: History of Present Illness - The patient is a 50-year-old male presenting with a follow-up visit after seeing a development educator. - Diabetes mellitus: The patient reports improved blood glucose levels, with recent readings in the 90s, compared to previous levels around 200, attributed to better dietary habits and consistent medication adherence. - Anxiety disorder: The patient mentions needing a refill for his anxiety medication, which was addressed by the development educator. - Preventative care: The patient declined the influenza vaccination due to a previous adverse reaction, which resulted in prolonged illness. Social History Review of Systems - General: Denies pain today. Physical Exam General: Cooperative and healthy appearing Nutritional Appearance: Well nourished Orientation/consciousness: Patient oriented x3 Limitations: No limitations Head: Normal to inspection General: Appearance normal, both eyes and all related structures Neck: Normal visual inspection Chest: Normal palpation of entire chest wall Respiratory: N ormal respiratory effort Neurology: Patient oriented x3, no pain reported today Results Plan - Continue current diabetes management plan, including dietary modifications and medication adherence. - Anxiety medication refill has been addressed; continue current regimen. - Patient declined influenza vaccination; no further action required. Discussion Notes Patient Instructions Medications: Refilled sertraline (Zoloft) 50 mg PO DAILY 90 tabs 1RF
[2025-07-30 10:26] VITALS: BP 150/86; PULSE 92; TEMP 36.2; O2SAT 98; BMI 35.0
== END 2025-07-30 10:56 | disposition home or self-care (01) ==
LOC: HO.HMCH 10:12
PROVIDERS: PCP Internal Medicine; Visit Provider Internal Medicine
DX: F41.8 Other specified anxiety disorders (principal)